=== PATIENT | female | born 1945 | race Caucasian/White ===

== ENCOUNTER 2017-11-05 15:31 | Emergency (ER) | payer MEDICARE, OTHER ==
[~2017-11-05] VITALS: Ht 165.1 cm; Wt 79.8 kg
--- OUTSIDE RECORDS SUMMARY | ~2017-11-05 | XMS | Clinical Summary ---
Demographics + + + | Address | [address] | | | [place] [address] | + + + | Home Phone | | + + + | Preferred Language | Unknown | + + + | Marital Status | | + + + | Confucianism Affiliation | Unknown | + + + | Race | Unknown | + + + | Ethnic Group | Unknown | + + + Author + + + | Author | [facility] | | | and [place] | + + + | Organization | [facility] | | | and [place] | + + + | Address | Unknown | + + + | Phone | Unavailable | + + + Support + + +---------+ + | Name | Relationship | Address | Phone | + + +---------+ + | Jeanine Arita | ECON | Unknown | | + + +---------+ + | Vikas Thomas | ECON | Unknown | | + + +---------+ + Care Team Providers + +------+ + | Care Glass Inspector Name | Role | Phone | + +------+ + | Aaron Nur DO | PP | Unavailable | + +------+ + Allergies + + + + + + | Active Allergy | Reactions | Severity | Noted | Comments | | | | | Date | | + + + + + + | Hydrocodone | | | 01/22/20 | | | | | | 15 | | + + + + + + | Ibuprofen | Nausea And Vomiting | | 08/12/19 | | | | | | 15 | | + + + + + + | Meperidine | Itching, Rash | Low | | | + + + + + + | Sumatriptan | Shortness Of Breath, | High | 08/12/19 | REACTION: Chest | | | Other (See | | 15 | pain, Shortness of | | | Comments) | | | Breath | + + + + + + Current Medications + + +-------+---------+------+------+-------+ | Prescription | Sig. | Disp. | Refills | Star | End | Statu | | | | | | t | Date | s | | | | | | Date | | | + + +-------+---------+------+------+-------+ | aspirin 81 mg EC | Take 81 mg by mouth | | | | | Activ | | tablet | Daily. | | | | | e | + + +-------+---------+------+------+-------+ | acetaminophen | Take 1,000 mg by | | | | | Activ | | (TYLENOL) 500 mg | mouth every 6 hours | | | | | e | | tablet | as needed for Pain. | | | | | | + + +-------+---------+------+------+-------+ | fluoxetine | Take 20 mg by mouth | | | 03/22 | | Activ | | (PROZAC) 20 MG | Daily. | | | 11/08 | | e | | tablet | | | | 12 | | | + + +-------+---------+------+------+-------+ | simvastatin | Take 40 mg by mouth | | | 10/0 | | Activ | | (ZOCOR) 40 mg tablet | nightly. | | | 5/20 | | e | | | | | | 12 | | | + + +-------+---------+------+------+-------+ | lidocaine | Apply topically as | | | | | Activ | | (XYLOCAINE) 2% jelly | needed. | | | | | e | + + +-------+---------+------+------+-------+ | levothyroxine | Take 75 mcg by mouth | | | | | Activ | | (SYNTHROID, | every morning | | | | | e | | LEVOTHROID) 75 MCG | (before breakfast). | | | | | | | tablet | | | | | | | + + +-------+---------+------+------+-------+ | cholecalciferol | Take 2,000 Units by | | | | | Activ | | (VITAMIN D-3) 2000 | mouth Daily. | | | | | e | | UNITS TABS | | | | | | | + + +-------+---------+------+------+-------+ | [place]-3 Fatty | Take 840 mg by mouth | | | | | Activ | | Acids (OMEGA-3 EPA | Daily. | | | | | e | | FISH OIL PO) | | | | | | | + + +-------+---------+------+------+-------+ | triamcinolone | Apply topically 2 | | | | | Activ | | (KENALOG) 0.1% cream | times daily. | | | | | e | + + +-------+---------+------+------+-------+ | Misc Natural | Apply to eye. | | | | | Activ | | Product (SIMILASAN | | | | | | e | | EYE DROPS #1 OP) | | | | | | | + + +-------+---------+------+------+-------+ | | Take by mouth. 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 | | + + + + + | Overview: ICD-10 Record update | + + Immunizations + + + + | Name | Dates Previously Given | Next Due | + + + + | INFLUENZA PF 18 Y OR | 03/22/2014 | | | >,TRIVALENT | | | | RECOMBINANT | | | + + + + | PNEUMOCOCCAL | 04/28/2012 | | | POLYSACCHARIDE | | | | 23-VALENT (PPSV23) | | | + + + + Family History + + + + + | Medical History | Relation | Name | Comments | + + + + + | Lung cancer | Brother | MARCELLO | | + + + + + | Cancer | Brother | PEÑA | SKIN/BONE/SPINE | + + + + + | Lung cancer | Brother | PEÑA | | + + + + + | Alcohol abuse | Brother | ZO | | + + + + + | Heart disease | Brother | | | + + + + + | Stroke | Daughter | JE[place]INE | | + + + + + | Alcohol abuse | Father | | | + + + + + | Cirrhosis | Father | | | + + + + + | Other (see comment) | Father | | PNEUMONIA | + + + + + | No Known Problems | Maternal | | | | | Grandfath | | | | | er | | | + + + + + | Heart failure | Maternal | | | | | Grandmoth | | | | | er | | | + + + + + | Alcohol abuse | Mother | | | + + + + + | Brain cancer | Mother | | | + + + + + | Cancer | Mother | | MELANOMA; METATASTIC | + + + + + | Liver cancer | Mother | | | + + + + + | Lung cancer | Mother | | | + + + + + | No Known Problems | Paternal | | | | | Grandfath | | | | | er | | | + + + + + | No Known Problems | Paternal | | | | | Grandmoth | | | | | er | | | + + + + + | Cancer | Sister | STIVEN | SKIN | + + + + + | Heart disease | Sister | STIVEN | | + + + + + | Other (see comment) | Sister | STIVEN | LUNG PROBLEMS | + + + + + | Ulcer Disease | Sister | STIVEN | | + + + + + | Cancer | Sister | KIARRA | SKIN | + + + + + | Drug abuse | Sister | KIARRA | | + + + + + | Schizophrenia | Sister | KIARRA | | + + + + + | No Known Problems | Son | VIKAS | | + + + + + + + + + + | Relation | Name | Status | Comments | + + + + + | Brother | MARCELLO | | LUNG CANCER | | | | (Age | | | | | 45) | | + + + + + | Brother | PEÑA | | CANCER | | | | (Age | | | | | 66) | | + + + + + | Brother | ZO | Alive | | + + + + + | Brother | | | | + + + + + | Daughter | [place]INE | Alive | | + + + + + | Father | | | | | | | (Age | | | | | 35) | | + + + + + | Maternal Grandfather | | | UNKNOWN COD | + + + + + | Maternal Grandmother | | | HEART FAILURE | | | | (Age | | | | | 69) | | + + + + + | Mother | | | CANCER | | | | (Age | | | | | 71) | | + + + + + | Paternal Grandfather | | | UNKNOWN COD | + + + + + | Paternal Grandmother | | | UNKNOWN COD | + + + + + | Sister | MIK | Alive | | + + + + + | Sister | STIVEN | | HEART PROBLEMS | | | | (Age | | | | | 64) | | + + + + + | Sister | KIARRA | | | | | | (Age | | | | | 63) | | + + + + + | Sister | RAFAEL | Alive | | + + + + + | Mumtaz | VIKAS | Alive | | + + + + + Social History + +-------+ +--------+------+ | Tobacco Use | Types | Packs/Day | Years | Date | | | | | Used | | + +-------+ +--------+------+ | Never Smoker | | | | | + +-------+ +--------+------+ + +---+---+---+ | Smokeless Tobacco: | | | | | Never Used | | | | + +---+---+---+ + + +---------+ + | Alcohol Use | Drinks/We | oz/Week | Comments | | | ek | | | + + +---------+ + | No | 0 | 0.0 | | | | Standard | | | | | drinks or | | | | | | | | | | equivalen | | | | | t | | | + + +---------+ + + + + | Sex Assigned at | Date Recorded | | | | + + + | Not on file | | + + + Last Filed Vital Signs + + + + | Vital Sign | Reading | Time Taken | + + + + | Blood Pressure | 162/68 | 04/18/20171247 PDT | + + + + | Pulse | 67 | 04/18/20171247 PDT | + + + + | Temperature | - | - | + + + + | Respiratory Rate | 14 | 04/18/20171247 PDT | + + + + | Oxygen Saturation | 98% | 04/18/20171247 PDT | + + + + | Inhaled Oxygen | - | - | | Concentration | | | + + + + | Weight | 85.7 kg (189 lb) | 04/18/20171247 PDT | + + + + | Height | 165.1 cm (5' 5") | 02/29/2016 1014 PDT | + + + + | Body Mass Index | 31.45 | 04/18/20171247 PDT | + + + + Plan of Treatment +--------+---------+ + + + | Date | Type | Specialty | Care Team | Description | +--------+---------+ + + + | 11/28/ | Office | | | | | 2018 | Visit | | | | +--------+---------+ + + + + + + + + | Health Maintenance | Due Date | Last Done | Comments | + + + + + | Hepatitis C | | | | | Screening | 5 | | | + + + + + | Vaccine: | | | | | Dtap/Tdap/Td (1 - | 4 | | | | Tdap) | | | | + + + + + | BREAST CANCER | | | | | SCREENING (MAMM Q2 | 5 | | | | YEARS 50-74) | | | | + + + + + | COLON CANCER | | | | | SCREENING | 5 | | | | (COLONOSCOPY EVERY | | | | | 10 YEARS 50-75) | | | | + + + + + | Vaccine: | | 04/28/2012 | | | Pneumococcal 65+ | 3 | | | | Low/Medium Risk (2 | | | | | of 2 - PCV13) | | | | + + + + + | Vaccine: Influenza | | 03/22/2014 | | | (Season Ended) | 8 | | | + + + + + Results Not on filefrom Last 3 Months Insurance + +--------+ +--------+ +---------+ | Payer | Benefi | Subscriber | Type | Phone | Address | | | t Plan | ID | | | | | | / | | | | | | | Group | | | | | + +--------+ +--------+ +---------+ | MEDICARE | MEDICA | xxxxxxxxxx | Medica | [phone] | | | RE | | re | [phone] | | | | PART A | | | | | | | AND B | | | | | + +--------+ +--------+ +---------+ | MEDICARE SUPPLEMENT | MEDICA | xxxxxxxxxx | Indemn | [phone] | | OTHER | RE | | ity | [phone] | | | | SUPPLE | | | | | | | MENT | | | | | | | OTHER | | | | | + +--------+ +--------+ +---------+ + +--------+ +--------+ + + | Guarantor Name | Accoun | Relation to | Date | Phone | Billing Address | | | t Type | Patient | of | | | | | | | | | | + +--------+ +--------+ + + | ASHLIE THOMAS | Person | Self [birth year] Home: | [address] | | | al/Fam | | 1945 | [phone] | [place] [address] | | | tata | | | [phone] | | + +--------+ +--------+ + +
--- OUTSIDE RECORDS SUMMARY | ~2017-11-05 | XMS | Clinical Summary ---
Demographics + + + | Address | [address] | | | [place] [address] | + + + | Home Phone | | + + + | Preferred Language | Unknown | + + + | Marital Status | | + + + | Pentecostalism Affiliation | Unknown | + + + | Race | Unknown | + + + | Ethnic Group | Unknown | + + + Author + + + | Author | [facility] | | | and [place] | + + + | Organization | [facility] | | | and [place] | [...] Team Providers + +------+ + | Care Outsole Skiver Name | Role | Phone | + [...] | | | + + +-------+---------+------+------+-------+ | [place]-3 Fatty | Take 840 mg by mouth [...] Self | [birth year] | Home: | [address] | | | al/Fam | | 1945 | [phone] | [place] [address] | | | tata | | | [phone] | | + +--------+ +--------+ + +
--- OUTSIDE RECORDS SUMMARY | ~2017-11-05 | XMS | Clinical Summary ---
Demographics + + + | Address | [address] | | | [place] [address] | + + + | Home Phone | | + + + | Preferred Language | Unknown | + + + | Marital Status | | + + + | Voodoo Affiliation | Unknown | + + + | Race | Unknown | + + + | Ethnic Group | Unknown | + + + Author + + + | Author | [facility] | + + + | Organization | [facility] | + + + | Address | Unknown | + + + | Phone | Unavailable | + + + Support + + +---------+ + | Name | Relationship | Address | Phone | + + +---------+ + | Eliazar Thomas | ECON | Unknown | | + + +---------+ + | Marge Arita | ECON | Unknown | | + + +---------+ + | Margarita Thomas | ECON | Unknown | | + + +---------+ + | Cecy Cardona | ECON | Unknown | | + + +---------+ + Care Team Providers + +------+ + | Care Rn Or Lpn Name | Role | Phone | + +------+ + | De Nur DO | PP | | + +------+ + Allergies + + + + + + | Active Allergy | Reactions | Severity | Noted | Comments | | | | | Date | | + + + + + + | Meperidine | Rash | Medium | 07/31/19 | | | | | | 17 | | + + + + + + | Ibuprofen | Nausea and Vomiting | Low | 07/31/19 | | | | | | 17 | | + + + + + + | Sumatriptan | Shortness of Breath, | High | 07/31/19 | Chest pain and SOB | | | Other (See | | 17 | | | | Comments) | | | | + + + + + + Current Medications + + +-------+---------+------+------+-------+ | Prescription | Sig. | Disp. | Refills | Star | End | Statu | | | | | | t | Date | s | | | | | | Date | | | + + +-------+---------+------+------+-------+ | levothyroxine | Take 75 mcg by mouth | | | | | Activ | | (SYNTHROID) 75 MCG | every morning | | | | | e | | tablet | before breakfast. | | | | | | + + +-------+---------+------+------+-------+ | aspirin 81 MG | Take 81 mg by mouth | | | | | Activ | | tablet | daily. | | | | | e | + + +-------+---------+------+------+-------+ | Cholecalciferol | Take by mouth. | | | | | Activ | | 2000 UNITS CAPS | | | | | | e | + + +-------+---------+------+------+-------+ | acetaminophen | Take 500 mg by mouth | | | | | Activ | | (TYLENOL) 500 MG | every 6 (six) hours | | | | | e | | tablet | as needed for Pain. | | | | | | + + +-------+---------+------+------+-------+ | simvastatin | Take 40 mg by mouth | | | | | Activ | | (ZOCOR) 40 MG tablet | nightly. | | | | | e | + + +-------+---------+------+------+-------+ | omega-3 acid ethyl | Take 1 g by mouth 2 | | | | | Activ | | esters (LOVAZA) 1 G | (two) times daily. | | | | | e | | capsule | | | | | | | + + +-------+---------+------+------+-------+ | FLUoxetine | Take 40 mg by mouth | | | | | Activ | | (PROZAC) 40 MG | daily. | | | | | e | | capsule | | | | | | | + + +-------+---------+------+------+-------+ | | Place rectally. | | | | | Activ | | Lidocaine-Hydrocorti | | | | | | e | | sone Audie 2-2 % KIT | | | | | | | + + +-------+---------+------+------+-------+ Active Problems + + + | Problem | Noted Date | + + + | Arrhythmia | 07/31/2016 | + + + | Hypothyroidism (acquired) | | + + + | Sleep apnea | | + + + + + | Overview: on CPAP, pressure increased in Sept. 2015 | + + Family History + + +--------+ + | Medical History | Relation | Name | Comments | + + +--------+ + | Bone cancer | Brother | love | | + + +--------+ + | Cancer | Brother | love | | + + +--------+ + | Lung cancer | Brother | love | | + + +--------+ + | Alcohol abuse | Brother | rc | | + + +--------+ + | Coronary art dis | Brother | rc | | + + +--------+ + | Drug abuse | Brother | rc | | + + +--------+ + | Heart attack | Smitaer | rc | | + + +--------+ + | Bone cancer | Brother | palencia | | + + +--------+ + | Cancer | Brother | palencia | | + + +--------+ + | Lung cancer | Brother | palencia | | + + +--------+ + | Alcohol abuse | Father | | | + + +--------+ + | Liver disease | Father | | | + + +--------+ + | Cancer | Mother | | | + + +--------+ + | Melanoma | Mother | | | + + +--------+ + | Cancer | Sister | alphonse | skin | + + +--------+ + | Drug abuse | Sister | alphonse | | + + +--------+ + | Schizophrenia | Sister | alphonse | | + + +--------+ + | COPD | Sister | kayla | | + + +--------+ + | Cancer | Sister | kayla | skin | + + +--------+ + + + + + + | Relation | Name | Status | Comments | + + + + + | Brother | love | | | | | | (Age | | | | | 45) | | + + + + + | Brother | rc | Alive | | + + + + + | Brother | palencia | | | | | | (Age | | | | | 66) | | + + + + + | Daughter | | Alive | | + + + + + | Father | | | 35 | + + + + + | Mother | | | | | | | (Age | | | | | 71) | | + + + + + | Sister | hitesh | Alive | | + + + + + | Sister | alphonse | Alive | | + + + + + | Sister | kayla | Alive | | + + + + + | Sister | ronel | Alive | | + + + + + | Son | | Alive | | + + + [...] + + + | Blood Pressure | 122/62 | 10/18/2016 9:31 AM PDT | + + + + | Pulse | 52 | 10/18/2016 9:31 AM PDT | + + + + | Temperature | - | - | + + + + | Respiratory Rate | 16 | 09/03/2016 9:35 AM PST | + + + + | Oxygen Saturation | 98% | 10/18/2016 9:31 AM PDT | + + + + | Inhaled Oxygen | - | - | | Concentration | | | + + + + | Weight | 78 kg (172 lb) | 10/18/2016 9:31 AM PDT | + + + + | Height | 165.1 cm (5' 5") | 10/18/2016 9:31 AM PDT | + + + + | Body Mass Index | 28.62 | 10/18/2016 9:31 AM PDT | + + + + Plan of Treatment +--------+---------+ + + + | Date | Type | Specialty | Care Team | Description | +--------+---------+ + + + | 11/14/ | Office | | Marina Bhatti | | | 2018 | Visit | | [address] | | | | | | [place] | | | | | | [facility] [address] | | | | | | [phone] | | | | | | | | +--------+---------+ + + + + + + + + | Health Maintenance | Due Date | Last Done | Comments | + + + + + | Vaccine: | | | | | Dtap/Tdap/Td (1 - | 4 | | | | Tdap) | | | | + + + + + | Breast Cancer | | | | | Screening | 5 | | | | (Mammogram) | | | | + + + + + | Colon Cancer | | | | | Screening | 5 | | | | (Colonoscopy) | | | | + + + + + | Vaccine: Zoster (#1) | | | | | | 5 | | | + + + + + | DEXA SCAN SCREENING | | | | | | 0 | | | + + + + + | Vaccine: | | 04/28/2012 | | | Pneumococcal 65+ | 3 | | | | Low/Medium Risk (2 | | | | | of 2 - PCV13) | | | | + + + + + | Vaccine: Influenza | | 03/22/2014, 03/22/2014 | | | (Season Ended) | 8 | | | + + + + + Results Not on filefrom Last 3 Months Insurance + +--------+ +------+-------+ + | Payer | Benefi | Subscriber | Type | Phone | Address | | | t Plan | ID | | | | | | / | | | | | | | Group | | | | | + +--------+ +------+-------+ + | MEDICARE | MEDICA | xxxxxxxxxx | | | [address] | | | RE | | | | [place] [phone] | | | IP-OP | | | | | + +--------+ +------+-------+ + + +--------+ +--------+ + + | Guarantor Name | Accoun | Relation to | Date | Phone | Billing Address | | | t Type | Patient | of | | | | | | | | | | + +--------+ +--------+ + + | ASHLIE THOMAS | Person | Self [birth year] | Home: | [address] | | | al/Fam | | 1945 | [phone] [place] [address] | | | tata | | | [phone] | | + +--------+ +--------+ + +
--- OUTSIDE RECORDS SUMMARY | ~2017-11-05 | XMS | Clinical Summary ---
Demographics + + + | Address | [address] | | | [place] [address] | + + + | Home Phone | | + + + | Preferred Language | Unknown | + + + | Marital Status | | + + + | Sabianism Affiliation | Unknown | + + + | Race | Unknown | + + + | Ethnic Group | Unknown | + + + Author + + + | Author | [facility] | + + + | Organization | [facility] | + + + | Address [...] Team Providers + +------+ + | Care Demolition Specialist Name | Role | Phone | + [...] [place] | | | | | | [facility] [address] | | | | | | [phone] | | | | | | | [...] | xxxxxxxxxx | | | [address] | | | RE | | | | [place] [phone] | | | IP-OP | | | [...] Self | [birth year] | Home: | [address] | | | al/Fam | | 1945 | [phone] | [place] [address] | | | tata | | | [phone] | | + +--------+ +--------+ + +
[~2017-11-05 15:31] MED LIST: ASPIR-LOW81 MG PO; CEPHALEXIN500 MG PO; CYCLOBENZAPRINE10 MG PO; CYCLOBENZAPRINE5 MG PO; FISH OIL 1,0001 EAC2 NG; FLEXERIL10 MG PO; FLUOXETINE HCL20 MG PO; LEVOTHYROXINE25 MCG PO; LEVOTHYROXINE75 MCG PO; NORCO 10-325 T1 EACH PO; NORCO 5-325 TA1 EACH PO; PERCOCET 5-3251 EACH PO; PROZAC20 MG PO; SIMVASTATIN40 MG PO; TYLENOL EXTRA500 MG PO; VITAMIN D32000 UNI1 PO; VITAMIN D5000 UNIT PO
--- NOTE | 2017-11-05 17:15 | EKG ---
[facility] [address] [facility] [place], [place] [address] Signed Sinus bradycardia Otherwise normal ECG No previous ECGs available Confirmed by ROBIN MCNEIL MD ([id number]) on 11/05/2017 5:15:05 PM Electronically Signed By: ROBIN MCNEIL MD 11/05/17 1715 PATIENT NAME: AMADA SPAIN Electrocardiogram DATE OF : 45 PHYSICIAN: ROBIN MCNEIL MD REPORT #: [id number] REPORT IS CONFIDENTIAL AND NOT TO BE RELEASED WITHOUT AUTHORIZATION
[2017-11-05] MEDS ORDERED: ONDANSETRON ODT8 MG PO (18:24)
== END 2017-11-05 18:38 | disposition home or self-care (01) ==
LOC: ED 15:31
DX: R53.1 Weakness (principal); R42 Dizziness and giddiness; R11.0 Nausea; E03.9 Hypothyroidism, unspecified; Z88.8 Allergy status to other drugs, medicaments and biological substances; Z79.82 Long term (current) use of aspirin; Z79.899 Other long term (current) drug therapy
CPT/HCPCS: 70450; 80053; 81001; 84484; 85025; 93005; 93010; 96374; 99284; J2405

== ENCOUNTER 2017-12-23 05:35 | Day surgery (SDC) | payer MEDICARE, OTHER ==
[~2017-12-23] VITALS: Ht 165.1 cm; Wt 85.3 kg
[~2017-12-23 05:35] MED LIST changes: +ONDANSETRON ODT8 MG PO
--- NOTE | 2017-12-23 08:17 | NUR ---
12/23/17 0817 Kylah Powell TO PACU, RESP EVEN UNLABORED. EASILY AWAKENS. DENIES PAIN OR C/O AT THIS TIME.
[2017-12-23] MEDS ORDERED: PYRIDIUM200 MG PO (08:30)
[2017-12-23] MEDS ORDERED: CIPRO500 MG PO (08:31)
--- NOTE | 2017-12-23 10:33 | OR ---
[facility] [address] [place], [place] [address] Signed DATE OF OPERATION: 12/23/2017 SURGEON: Liliana Remy MD PREOPERATIVE DIAGNOSES: 1. Microhematuria. 2. Overactive bladder. 3. Urethral stenosis. POSTOPERATIVE DIAGNOSES: 1. Microhematuria. 2. Overactive bladder. 3. Urethral stenosis. 4. Cystitis. NAMES OF PROCEDURES: 1. Urethral dilation, from 12-Samoan to 24-Samoan. 2. Diagnostic cystoscopy with Botox bladder injection, 100 units. ANESTHESIA: MAC with 20 mL of 2% lidocaine gel. COMPLICATIONS: None. SPECIMENS: None. DRAINS: None. INDICATIONS FOR PROCEDURE: Ms. Thomas is a very pleasant 72-year-old female, who presented to my clinic earlier this year in August to initially undergo evaluation for microhematuria and urgency/frequency symptoms. She had been tried on various medications for urgency and frequency, but these medications did not provide any relief for her symptoms. Her postvoid residual was consistently 0 mL. She had no history of recurrent urinary tract infections, however, she does have a history of a pelvic floor repair in the past. She underwent an attempted diagnostic cystoscopy in November 2017. However, due to the presence of urethral stenosis, I was unable to perform the cystoscopy. At the time, I attempted Electronically Signed By: LILIANA REMY MD 12/23/17 1033 PATIENT NAME: AMADA THOMAS OPERATIVE REPORT DATE OF : 45 REPORT #: [id number] PHYSICIAN: LILIANA REMY MD PCP: KELSIE FRIED MD REPORT IS CONFIDENTIAL AND NOT TO BE RELEASED WITHOUT AUTHORIZATION [facility] [address] [place], [place] [address] Signed urethral dilation with a 12-Samoan sound, however, I aborted the procedure due to patient discomfort. In the interim, she has undergone a contrasted CT abdomen and pelvis for thorough evaluation of her upper tracts given her history of microhematuria. The CAT scan was performed in early December of this year and was found to be negative for any abnormalities. She presents today to undergo a urethral dilation, which will allow for thorough diagnostic cystoscopy as well as Botox bladder injection of 100 units. She has been made aware of the 6% risk of urinary retention and has agreed to proceed. OPERATIVE FINDINGS: Physical examination reveals introital stenosis. The patient's urethra was dilated from 12-Samoan to 24-Samoan without difficulty. Diagnostic cystoscopy reveals no evidence of any suspicious masses, lesions, or stones. Bilateral ureteral orifices are in their normal anatomic location. Noted throughout is diffuse superficial mucosal vessels that are indicative of a diffuse inflammatory response to the bladder. Etiology is unknown. There is also diffuse grade 1 bladder wall trabeculation noted. A total of 100 units of botulinum toxin was injected throughout the patient's bladder wall using a 3 mm needle. I avoided the trigone, dome, and ureteral orifices. The procedure was performed without complication. DESCRIPTION OF PROCEDURE: After informed consent was obtained, the patient was taken back to the operating room. She was transferred from the [facility] to the operating room table, where MAC anesthesia was induced. She was placed in the dorsal lithotomy position and her genitalia were prepped and draped in standard sterile fashion. A straight sound was then used to dilate the patient's urethra from 12-Samoan to 24-Samoan. This was performed without difficulty. Using a 30-degree lens on a 22.5-Samoan introducer, I inserted the rigid cystoscope through the urethra into her bladder under direct visualization. Panendoscopic views of the bladder were then obtained including the lateral puga, floor, dome, and trigone areas. Please see above findings. Once I was satisfied that I had completed the cystoscopy, I initiated injection of the botulinum toxin. I advanced the long ShopItToMe needle. I injected a total of 20 or so 0.5 mL injections of botulinum toxin into the patient's detrusor muscle throughout, avoiding the dome, trigone, and areas of the ureteral orifice. Once the injection was complete, the patient's bladder was then emptied and the cystoscope was removed. The procedure was then tolerated. The patient tolerated the procedure well without any complication. She will now be transferred to the postanesthesia care unit in stable condition. DISPOSITION: I discussed the details of the procedure today with her ioieovm-tv-sta, Homero. All of Electronically Signed By: LILIANA REMY MD 12/23/17 1033 PATIENT NAME: AMADA THOMAS OPERATIVE REPORT DATE OF : 45 REPORT #: [id number] PHYSICIAN: LILIANA REMY MD PCP: KELSIE FRIED MD REPORT IS CONFIDENTIAL AND NOT TO BE RELEASED WITHOUT AUTHORIZATION [facility] [address] [place] [id number] Signed his questions were answered to his satisfaction. She will be discharged to home later this morning in the care of her family. She will be sent home with Pyridium 200 mg p.o. t.i.d. p.r.n. dysuria, dispense #15, as well as Cipro 500 mg p.o. b.i.d. for a total of 5 days. She will be scheduled to return to clinic in approximately one month for postoperative evaluation. MD JOHANA Du/MARIA R /[id number] Copies: ~ Electronically Signed By: LILIANA REMY MD 12/23/17 1033 PATIENT NAME: AMADA THOMAS OPERATIVE REPORT DATE OF : 45 REPORT #: [id number] PHYSICIAN: LILIANA REMY MD PCP: KELSIE FRIED MD REPORT IS CONFIDENTIAL AND NOT TO BE RELEASED WITHOUT AUTHORIZATION
== END 2017-12-23 09:00 | disposition home or self-care (01) ==
LOC: DS 05:35 → OPS 05:35 → DS 08:15 → OPS 09:00
PROVIDERS: Urology
PROC: 0T7D8ZZ Dilation of Urethra, Via Natural or Artificial Opening Endoscopic (ICD-10-PCS; 2017-12-23)
PROC: 3E0K8GC Introduction of Other Therapeutic Substance into Genitourinary Tract, Via Natural or Artificial Opening Endoscopic (ICD-10-PCS; principal; 2017-12-23 06:45)
DX: N35.9 Urethral stricture, unspecified (principal); N32.81 Overactive bladder; N39.46 Mixed incontinence; N30.91 Cystitis, unspecified with hematuria; I10 Essential (primary) hypertension; E03.9 Hypothyroidism, unspecified; Z98.890 Other specified postprocedural states; Z88.5 Allergy status to narcotic agent; Z88.8 Allergy status to other drugs, medicaments and biological substances; Z79.82 Long term (current) use of aspirin; Z79.899 Other long term (current) drug therapy
CPT/HCPCS: 00910; J0585; J0696; J2250; J2704; J3010; J7120

== ENCOUNTER 2020-07-15 20:18 | Emergency (ER) | payer MEDICARE, OTHER ==
[~2020-07-15] VITALS: Ht 165.1 cm; Wt 92.5 kg
[~2020-07-15 20:18] MED LIST changes: +AMLODIPINE BESYL5 MG PO; +ATORVASTATIN CA80 MG PO; +CEFUROXIME250 MG PO; +CIPRO500 MG PO; +DULOXETINE HCL60 MG PO; +LEVOTHYROXINE88 MCG PO; +LIPITOR40 MG PO; +METOPROLOL SUCC25 MG PO; +PREDNISONE5 MG PO; +PRO CAL PO; +PYRIDIUM200 MG PO; +WARFARIN SODIUM3 MG PO; +WARFARIN SODIUM6 MG PO
[2020-07-15] MEDS ORDERED: ALENDRONATE SOD70 MG PO (20:50)
[2020-07-15] MEDS ORDERED: NORCO 5-325 TA1 EACH PO (21:52)
== END 2020-07-15 22:11 | disposition home or self-care (01) ==
LOC: ED 20:18
DX: S20.212A Contusion of left front wall of thorax, initial encounter (principal); W01.198A Fall on same level from slipping, tripping and stumbling with subsequent striking against other object, initial encounter; G47.30 Sleep apnea, unspecified; F32.9 Major depressive disorder, single episode, unspecified; E03.9 Hypothyroidism, unspecified; Z88.8 Allergy status to other drugs, medicaments and biological substances; Z88.2 Allergy status to sulfonamides; Z88.1 Allergy status to other antibiotic agents; Z87.891 Personal history of nicotine dependence; Z79.899 Other long term (current) drug therapy; Z79.01 Long term (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 of anticoagulants
CPT/HCPCS: 71101; 99283-25

== ENCOUNTER 2020-12-03 21:21 | Emergency (ER) | payer MEDICARE ==
[~2020-12-03] VITALS: Ht 165.1 cm; Wt 92.5 kg
[~2020-12-03 21:21] MED LIST changes: +ALENDRONATE SOD70 MG PO; +IPRATROPIUM BRO30 ML NAS
[2020-12-03] MEDS ORDERED: HYDROCODON-ACE1 EA10 PO (23:28)
[2021-01-03] MEDS ORDERED: ALENDRONATE SOD70 MG PO (15:24)
== END 2020-12-03 23:58 | disposition home or self-care (01) ==
LOC: ED 21:21
DX: S39.011A Strain of muscle, fascia and tendon of abdomen, initial encounter (principal); X58.XXXA Exposure to other specified factors, initial encounter; G47.30 Sleep apnea, unspecified; E03.9 Hypothyroidism, unspecified; Z88.8 Allergy status to other drugs, medicaments and biological substances; Z88.2 Allergy status to sulfonamides; Z88.1 Allergy status to other antibiotic agents; Z79.899 Other long term (current) drug therapy; Z79.52 Long term (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 of systemic steroids; Z79.01 Long term (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 of anticoagulants
CPT/HCPCS: 99283

== ENCOUNTER 2021-03-02 12:07 | Emergency (ER) | payer MEDICARE ==
[~2021-03-02] VITALS: Ht 165.1 cm; Wt 92.5 kg
[~2021-03-02 12:07] MED LIST changes: +HYDROCODON-ACE1 EA10 PO
[2021-03-02] MEDS ORDERED: ZITHROMAX250 MG PO (13:41)
[2021-03-21] MEDS ORDERED: OMEPRAZOLE20 MG PO (14:36)
== END 2021-03-02 14:03 | disposition home or self-care (01) ==
LOC: ED 12:07
DX: J18.9 Pneumonia, unspecified organism (principal); G47.30 Sleep apnea, unspecified; I48.91 Unspecified atrial fibrillation; I10 Essential (primary) hypertension; E03.9 Hypothyroidism, unspecified; Z88.8 Allergy status to other drugs, medicaments and biological substances; Z88.1 Allergy status to other antibiotic agents; Z88.2 Allergy status to sulfonamides; Z79.899 Other long term (current) drug therapy
CPT/HCPCS: 71045; 99283-25

== ENCOUNTER 2021-03-03 15:45 | Emergency (ER) | payer MEDICARE ==
[~2021-03-03] VITALS: Ht 165.1 cm; Wt 92.5 kg
[~2021-03-03 15:45] MED LIST changes: +ZITHROMAX250 MG PO
--- OUTSIDE RECORDS SUMMARY | 2021-03-03 15:52 | XMS ---
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 Brianna has no Care Guidelines for this patient. Simone VISIT COUNT (12 MO.) [facility] NOTE: Visits indicate total known visits. 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 - Allergy status to other drugs, medicaments and biological substances - Other terminal carman (current) drug therapy - Exposure to other specified factors, initial encounter - Sleep apnea, unspecified - Strain of muscle, fascia and tendon of abdomen, initial encounter - Allergy status to sulfonamides - Hypothyroidism, unspecified - Allergy status to other antibiotic agents - buttermilk drier operator (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 of systemic steroids 07/15/2020 20:19 [facility] [place] TYPE: Emergency COMPLAINT: - LT SIDED PAIN DIAGNOSES: - Allergy status to other antibiotic agents - Personal history of nicotine dependence - Allergy status to other drugs, medicaments and biological substances - Major depressive disorder, single episode, unspecified - Other jail (current) drug therapy - Allergy status to sulfonamides - Allergy status to sulfonamides - Allergy status to other drugs, medicaments and biological substances - Contusion of left front wall of thorax, initial encounter - Allergy status to other antibiotic agents - Fall on same level from slipping, tripping and stumbling with subsequent striking against other object, initial encounter - Sleep apnea, unspecified - buttermilk drier operator (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 of anticoagulants - Hypothyroidism, unspecified INPATIENT VISIT TRACKING (12 MO.) No inpatient visits to display in this time frame [id number]
[2021-03-21] MEDS ORDERED: OMEPRAZOLE20 MG PO (14:36)
== END 2021-03-03 17:01 | disposition home or self-care (01) ==
LOC: ED 15:45
DX: H92.22 Otorrhagia, left ear (principal); G47.30 Sleep apnea, unspecified; E03.9 Hypothyroidism, unspecified; I10 Essential (primary) hypertension; I48.91 Unspecified atrial fibrillation; Z88.8 Allergy status to other drugs, medicaments and biological substances; Z88.2 Allergy status to sulfonamides; Z88.1 Allergy status to other antibiotic agents; Z79.899 Other long term (current) drug therapy; Z79.52 Long term (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 of systemic steroids; Z79.01 Long term (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 of anticoagulants
CPT/HCPCS: 99282

== ENCOUNTER 2021-09-22 15:56 | Emergency (ER) | payer MEDICARE ==
[~2021-09-22] VITALS: Ht 165.1 cm; Wt 99.3 kg
[~2021-09-22 15:56] MED LIST changes: +LOSARTAN POTASS50 MG PO; +OMEPRAZOLE20 MG PO; +OMEPRAZOLE40 MG PO; +TERBINAFINE HC250 MG PO
--- OUTSIDE RECORDS SUMMARY | 2021-09-22 15:58 | XMS ---
PreManage Notification: AMADA SPAIN Security Generation Engineer Events No recent Security Events currently on file CRITERIA MET - ED - Positive COVID-19 Lab Result - [facility] Internal Medicine 03/06/2021-Current PHONE: [phone] [facility] Current PHONE: [phone] Brianna has no Care Guidelines for this patient. Care History Medical/Surgical 03/06/2021 [facility] - Patient is currently established with [facility]. If patient is seen in the ED during business hours. Please contact CHWs at [facility]. Care Recommendation: If this patient has had 5 or more Emergency Department visits in the last 12 months.\T\nbsp; Patient will require education on the scope and purpose of the ED as an acute care provider not a Primary Care Provider and should not be utilized for chronic conditions.\T\nbsp; These are guidelines and the provider should exercise clinical judgment when providing care. E.D. VISIT COUNT (12 MO.) [address] [facility] TOTAL 4 NOTE: Visits indicate total known visits. ED/UCC VISIT TRACKING (12 MO.) 09/22/2021 15:56 [facility] [place] TYPE: Emergency COMPLAINT: - FALL,RT SIDED PAIN 03/03/2021 15:45 [facility] [place] TYPE: Emergency COMPLAINT: - BLEEDING FROM EAR/PAIN DIAGNOSES: - Allergy status to sulfonamides - detention (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 of anticoagulants - Other alf (current) drug therapy - Hypothyroidism, unspecified - Otorrhagia, left ear - detention (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 of systemic steroids - Allergy status to other antibiotic agents - Allergy status to other drugs, medicaments and biological substances - Unspecified atrial fibrillation - Sleep apnea, unspecified - Essential (primary) hypertension 03/02/2021 12:08 [facility] [place] TYPE: Emergency COMPLAINT: - FLU SYMPTOMS, SOB, COUGH DIAGNOSES: - Hypothyroidism, unspecified - Allergy status to other antibiotic agents - Unspecified atrial fibrillation - Allergy status to sulfonamides - Sleep apnea, unspecified - Essential (primary) hypertension - Other alf (current) drug therapy - Cough - Pneumonia, unspecified organism - Allergy status to other drugs, medicaments and biological substances 12/03/2020 21:23 [facility] [place] TYPE: Emergency COMPLAINT: - LEFT LOWER BACK PAIN DIAGNOSES: - termite control representative (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 of anticoagulants - Allergy status to other drugs, medicaments and biological substances - Other ferry terminal agent (current) drug therapy - Exposure to other specified factors, initial encounter - Sleep apnea, unspecified - Strain of muscle, fascia and tendon of abdomen, initial encounter - Allergy status to sulfonamides - Hypothyroidism, unspecified - Allergy status to other antibiotic agents - termite control representative (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 of systemic steroids INPATIENT VISIT TRACKING (12 MO.) No inpatient visits to display in this time frame [id number]
[2021-09-22] MEDS ORDERED: PREDNISONE5 MG PO (16:37)
[2021-09-22] MEDS ORDERED: ULTRAM50 MG PO (20:53)
== END 2021-09-22 21:36 | disposition home or self-care (01) ==
LOC: ED 15:56
DX: S20.211A Contusion of right front wall of thorax, initial encounter (principal); G47.30 Sleep apnea, unspecified; I10 Essential (primary) hypertension; I48.91 Unspecified atrial fibrillation; E03.9 Hypothyroidism, unspecified; Z88.8 Allergy status to other drugs, medicaments and biological substances; Z88.6 Allergy status to analgesic agent; Z79.52 Long term (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 of systemic steroids; Z79.899 Other long term (current) drug therapy; Z79.01 Long term (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 of anticoagulants; W18.30XA Fall on same level, unspecified, initial encounter
CPT/HCPCS: 36415; 70450; 71101; 71250; 72125; 73502; 73560; 73610; 80048; 82553; 85025; 85610; 96374; 99284-25; J2270

== ENCOUNTER 2021-10-26 19:00 | Emergency (ER) | payer MEDICARE ==
[~2021-10-26] VITALS: Ht 165.1 cm; Wt 99.3 kg
[~2021-10-26 19:00] MED LIST changes: +ULTRAM50 MG PO
--- OUTSIDE RECORDS SUMMARY | 2021-10-26 19:06 | XMS ---
PreManage Notification: AMADA SPAIN Security Recovery Specialist Events No recent Security Events currently on file CRITERIA MET - ED - Positive COVID-19 Lab Result - [facility] Internal Medicine 03/06/2021-Current PHONE: [phone] [facility] Current PHONE: Unknown Brianna has no Care Guidelines for this patient. Care History Medical/Surgical 03/06/2021 [facility] - Patient is currently established with [facility]. If patient is seen in the ED during business hours. Please contact CHWs at [facility]. Care Recommendation: If this patient has had [...] providing care. E.D. VISIT COUNT (12 MO.) [address] [facility] TOTAL 5 NOTE: Visits indicate total known visits. ED/UCC VISIT TRACKING (12 MO.) 10/26/2021 19:00 [facility] [place] TYPE: Emergency COMPLAINT: - LT FINGER LACERATION 09/22/2021 15:56 [facility] [place] TYPE: Emergency COMPLAINT: - FALL,RT SIDED PAIN DIAGNOSES: - Hypothyroidism, unspecified - Shortness of breath - Sleep apnea, unspecified - Essential (primary) hypertension - Fall on same level, unspecified, initial encounter - Contusion of right front wall of thorax, initial encounter - Allergy status to other drugs, medicaments and biological substances - [facility] (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 of anticoagulants - [facility] (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 of systemic steroids - Other supervisor intermediates (current) drug therapy - Allergy status to analgesic agent - Unspecified atrial fibrillation 03/03/2021 15:45 [facility] [place] TYPE: Emergency COMPLAINT: - BLEEDING FROM EAR/PAIN DIAGNOSES: - Allergy status to sulfonamides - [facility] (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 of anticoagulants - Other supervisor intermediates (current) drug therapy - Hypothyroidism, unspecified - Otorrhagia, left ear - [facility] (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 of systemic steroids - Allergy status to other antibiotic agents - Allergy status to other drugs, medicaments and biological substances - Unspecified atrial fibrillation - Sleep apnea, unspecified - Essential (primary) hypertension 03/02/2021 12:08 [facility] [place] TYPE: Emergency COMPLAINT: - FLU SYMPTOMS, SOB, COUGH DIAGNOSES: - Hypothyroidism, unspecified - Allergy status to other antibiotic agents - Unspecified atrial fibrillation - Allergy status to sulfonamides - Sleep apnea, unspecified - Essential (primary) hypertension - Other supervisor intermediates (current) drug therapy - Cough - Pneumonia, unspecified organism - Allergy status to other drugs, medicaments and biological substances 12/03/2020 21:[address] [facility] [place] TYPE: Emergency COMPLAINT: - LEFT LOWER BACK PAIN DIAGNOSES: - [facility] (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 of anticoagulants - Allergy status to other drugs, medicaments and biological substances - Other supervisor intermediates (current) drug therapy - Exposure to other specified factors, initial encounter - Sleep apnea, unspecified - Strain of muscle, fascia and tendon of abdomen, initial encounter - Allergy status to sulfonamides - Hypothyroidism, unspecified - Allergy status to other antibiotic agents - adjunct faculty for medical terminology (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 of systemic steroids INPATIENT VISIT TRACKING (12 MO.) No inpatient visits to display in this time frame [email or web address]
[2021-10-27] MEDS ORDERED: MUPIROCIN22 GM TOP ×2 (06:37)
== END 2021-10-26 22:42 | disposition home or self-care (01) ==
LOC: ED 19:00
DX: S61.211A Laceration without foreign body of left index finger without damage to nail, initial encounter (principal); G47.30 Sleep apnea, unspecified; E03.9 Hypothyroidism, unspecified; I48.91 Unspecified atrial fibrillation; I10 Essential (primary) hypertension; Z88.6 Allergy status to analgesic agent; Z88.8 Allergy status to other drugs, medicaments and biological substances; Z79.899 Other long term (current) drug therapy; Z79.01 Long term (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 of anticoagulants; Z79.52 Long term (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 of systemic steroids; W26.0XXA Contact with knife, initial encounter
CPT/HCPCS: 12001; 99282-25

== ENCOUNTER 2021-11-20 07:34 | Emergency (ER) | payer OTHER, MEDICARE ==
[~2021-11-20] VITALS: Ht 165.1 cm; Wt 99.3 kg
[~2021-11-20 07:34] MED LIST changes: +MUPIROCIN22 GM TOP
--- OUTSIDE RECORDS SUMMARY | 2021-11-20 07:36 | XMS ---
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 - 2 Visits in 30 Days CARE PROVIDERS [facility] Internal Medicine 03/06/2021-Current PHONE: [phone] [facility] Current PHONE: Unknown Brianna has no Care Guidelines for this patient. Care History Medical/Surgical 03/06/2021 [facility] - Patient is currently established with [facility]. If patient is seen in the ED during business hours. Please contact CHWs at [facility]. Care Recommendation: If this patient has [...] providing care. E.D. VISIT COUNT (12 MO.) [address] [facility] TOTAL 7 NOTE: Visits indicate total known visits. ED/UCC VISIT TRACKING (12 MO.) 11/20/2021 07:35 [facility] [place] TYPE: Emergency COMPLAINT: - FALL 11/06/2021 14:26 [facility] [place] TYPE: Emergency COMPLAINT: - SUTURE REMOVAL 10/26/2021 19:00 [facility] [place] TYPE: Emergency COMPLAINT: - LT FINGER LACERATION DIAGNOSES: - Allergy status to analgesic agent - buttermaker helper (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 of anticoagulants - Contact with knife, initial encounter - Other rn long term care (current) drug therapy - Laceration without foreign body of left index finger without damage to nail, initial encounter - Sleep apnea, unspecified - Allergy status to other drugs, medicaments and biological substances - prison (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 of systemic steroids - Essential (primary) hypertension - Unspecified atrial fibrillation - Hypothyroidism, unspecified 09/22/2021 15:56 [facility] [place] TYPE: Emergency COMPLAINT: - FALL,RT SIDED PAIN DIAGNOSES: - Hypothyroidism, unspecified - Shortness of breath - Sleep apnea, unspecified - Essential (primary) hypertension - Fall on same level, unspecified, initial encounter - Contusion of right front wall of thorax, initial encounter - Allergy status to other drugs, medicaments and biological substances - prison (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 of anticoagulants - buttermaker helper (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 of systemic steroids - Other rn long term care (current) drug therapy - Allergy status to analgesic agent - Unspecified atrial fibrillation 03/03/2021 15:45 [facility] [place] TYPE: Emergency COMPLAINT: - BLEEDING FROM EAR/PAIN DIAGNOSES: - Allergy status to sulfonamides - prison (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 of anticoagulants - Other rn long term care (current) drug therapy - Hypothyroidism, unspecified - Otorrhagia, left ear - buttermaker helper (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 of systemic steroids - Allergy [...] unspecified - Essential (primary) hypertension - Other detention (current) drug therapy - Cough - Pneumonia, unspecified organism - Allergy status to other drugs, medicaments and biological substances 12/03/2020 21:23 [facility] [place] TYPE: Emergency COMPLAINT: - LEFT LOWER BACK PAIN DIAGNOSES: - prison (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 of anticoagulants - Allergy status to other drugs, medicaments and biological substances - Other detention (current) drug therapy - Exposure to other specified factors, initial encounter - Sleep apnea, unspecified - Strain of muscle, fascia and tendon of abdomen, initial encounter - Allergy status to sulfonamides - Hypothyroidism, unspecified - Allergy status to other antibiotic agents - prison (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 of systemic steroids INPATIENT VISIT TRACKING (12 MO.) No inpatient visits to display in this time frame [id number]
== END 2021-11-20 09:30 | disposition home or self-care (01) ==
LOC: ED 07:34
DX: S20.219A Contusion of unspecified front wall of thorax, initial encounter (principal); G47.30 Sleep apnea, unspecified; E03.9 Hypothyroidism, unspecified; I48.91 Unspecified atrial fibrillation; I10 Essential (primary) hypertension; Z88.8 Allergy status to other drugs, medicaments and biological substances; Z88.6 Allergy status to analgesic agent; Z79.899 Other long term (current) drug therapy; Z79.52 Long term (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 of systemic steroids; Z79.01 Long term (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 of anticoagulants; W01.198A Fall on same level from slipping, tripping and stumbling with subsequent striking against other object, initial encounter; Y99.0 Civilian activity done for income or pay
CPT/HCPCS: 36415; 71046; 85025; 85610; 99284-25; A9270

== ENCOUNTER 2021-11-23 19:41 | Emergency (ER) | payer MEDICARE ==
[~2021-11-23] VITALS: Ht 165.1 cm; Wt 99.8 kg
--- OUTSIDE RECORDS SUMMARY | 2021-11-23 19:44 | XMS ---
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 Care History Medical/Surgical 11/22/2021 [facility] - Patient is currently established with [facility]. If patient is seen in the ED during business hours. Please contact CHWs at [facility]. Care Recommendation: If this patient has [...] providing care. E.D. VISIT COUNT (12 MO.) [address] [facility] TOTAL 8 NOTE: Visits indicate total known visits. ED/UCC VISIT TRACKING (12 MO.) 11/23/2021 19:41 [facility] [place] TYPE: Emergency COMPLAINT: - CHEST PAIN 11/20/2021 07:35 [facility] [place] TYPE: Emergency COMPLAINT: - FALL DIAGNOSES: - Chest pain, unspecified - Unspecified atrial fibrillation - Fall on same level from slipping, tripping and stumbling with subsequent striking against other object, initial encounter - Civilian activity done for income or pay - Hypothyroidism, unspecified - Allergy status to other drugs, medicaments and biological substances - Sleep apnea, unspecified - bed bug exterminator (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 of systemic steroids - Contusion of unspecified front wall of thorax, initial encounter - Essential (primary) hypertension - Other senior care (current) drug therapy - bed bug exterminator (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 of anticoagulants - Allergy status to analgesic agent 11/06/2021 14:26 [facility] [place] TYPE: Emergency COMPLAINT: - SUTURE REMOVAL 10/26/2021 19:00 [facility] [place] TYPE: Emergency COMPLAINT: - LT FINGER LACERATION DIAGNOSES: - Allergy status to analgesic agent - longterm (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 of anticoagulants - Contact with knife, initial encounter - Other exterminator helper termite (current) drug therapy - Laceration without foreign body of left index finger without damage to nail, initial encounter - Sleep apnea, unspecified - Allergy status to other drugs, medicaments and biological substances - longterm (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 of systemic steroids - Essential [...] other drugs, medicaments and biological substances - longterm (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 of anticoagulants - bed bug exterminator (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 of systemic steroids - Other exterminator helper termite (current) drug therapy - Allergy status to analgesic agent - Unspecified atrial fibrillation 03/03/2021 15:45 [facility] [place] TYPE: Emergency COMPLAINT: - BLEEDING FROM EAR/PAIN DIAGNOSES: - Allergy status to sulfonamides - longterm (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 of anticoagulants - Other exterminator helper termite (current) drug therapy - Hypothyroidism, unspecified - Otorrhagia, left ear - longterm (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 of systemic steroids - Allergy [...] unspecified - Essential (primary) hypertension - Other exterminator helper termite (current) drug therapy - Cough - Pneumonia, unspecified organism - Allergy status to other drugs, medicaments and biological substances 12/03/2020 21:[address] [facility] [place] TYPE: Emergency COMPLAINT: - LEFT LOWER BACK PAIN DIAGNOSES: - longterm (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 of anticoagulants - Allergy status to other drugs, medicaments and biological substances - Other senior care (current) drug therapy - Exposure to other specified factors, initial encounter - Sleep apnea, unspecified - Strain of muscle, fascia and tendon of abdomen, initial encounter - Allergy status to sulfonamides - Hypothyroidism, unspecified - Allergy status to other antibiotic agents - longterm (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 of systemic steroids INPATIENT VISIT TRACKING (12 MO.) No inpatient visits to display in this time frame [id number]
[2021-11-23] MEDS ORDERED: PERCOCET 5-3251 EACH PO (22:13)
--- NOTE | 2021-11-24 17:20 | EKG ---
[facility] [address] [facility] [facility] [address] [place], [place] [address] Signed Normal sinus rhythm Nonspecific ST and T wave abnormality Abnormal ECG No previous ECGs available Confirmed by ROBIN MCNEIL MD ([id number]) on 11/24/2021 5:20:33 PM Electronically Signed By: ROBIN MCNEIL MD 11/24/21 1720 PATIENT NAME: AMADA SPAIN Electrocardiogram DATE OF : 45 PHYSICIAN: ROBIN MCNEIL MD REPORT #: [id number] REPORT IS CONFIDENTIAL AND NOT TO BE RELEASED WITHOUT AUTHORIZATION
== END 2021-11-23 22:30 | disposition home or self-care (01) ==
LOC: ED 19:41
DX: S20.212A Contusion of left front wall of thorax, initial encounter (principal); G47.30 Sleep apnea, unspecified; E03.9 Hypothyroidism, unspecified; I48.91 Unspecified atrial fibrillation; I10 Essential (primary) hypertension; Z88.8 Allergy status to other drugs, medicaments and biological substances; Z88.6 Allergy status to analgesic agent; Z79.899 Other long term (current) drug therapy; Z79.01 Long term (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 of anticoagulants; Z79.52 Long term (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 of systemic steroids; W19.XXXA Unspecified fall, initial encounter; W22.8XXA Striking against or struck by other objects, initial encounter
CPT/HCPCS: 36415; 51701; 71260; 74177; 80053; 81001; 85025; 85610; 93005; 93010; 99284-25; J1170; J2270; Q9967

== ENCOUNTER 2022-09-12 12:55 | Emergency (ER) | payer MEDICARE ==
[~2022-09-12] VITALS: Ht 165.1 cm; Wt 98.0 kg
[~2022-09-12 12:55] MED LIST changes: +ADULT LOW DOSE81 MG PO; +FLUTICASONE PRO15 G1 NAS; +FLUTICASONE PRO15 G1 TOP; +LEVOTHYROXINE100 MCG PO
--- OUTSIDE RECORDS SUMMARY | 2022-09-12 12:56 | XMS ---
PreManage Notification: AMADA SPAIN Security White Sugar Syrup Operator Events No recent Security Events currently on file CRITERIA MET - [facility] - 2 Visits in 30 Days - [facility] - Has Care Guidelines - PDMP CARE PROVIDERS EWA [facility] Internal Medicine 03/06/2021-Current PHONE: Unknown [facility] Current PHONE: Unknown Brianna has no Care Guidelines for this patient. Care History Medical/Surgical 11/28/2021 [facility] - Patient is currently established with [facility]. If patient is seen in the ED during business hours. Please contact CHWs at [facility]. Care Recommendation: If this patient [...] care. E.D. VISIT COUNT (12 MO.) [address] [facility] TOTAL 7 NOTE: Visits indicate total known visits. ED/UCC VISIT TRACKING (12 MO.) 09/12/2022 12:[address] [facility] [place] TYPE: Emergency COMPLAINT: - ABDOMINAL PAIN 09/09/2022 12:03 [facility] [place] TYPE: Emergency COMPLAINT: - BODY NUMBNESS 11/23/2021 19:41 [facility] [place] TYPE: Emergency COMPLAINT: - CHEST PAIN DIAGNOSES: - Mastodynia - Striking against or struck by other objects, initial encounter - Allergy status to analgesic agent - Other prison (current) drug therapy - Unspecified fall, initial encounter - manager long term care (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 of anticoagulants - Sleep apnea, unspecified - Unspecified atrial fibrillation - Essential (primary) hypertension - Contusion of left front wall of thorax, initial encounter - Allergy status to other drugs, medicaments and biological substances - Hypothyroidism, unspecified - manager long term care (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 of systemic steroids 11/20/2021 07:35 [facility] [place] TYPE: Emergency COMPLAINT: - FALL DIAGNOSES: - Allergy status to analgesic agent - Civilian activity done for income or pay - Other prison (current) drug therapy - Unspecified atrial fibrillation - Contusion of unspecified front wall of thorax, initial encounter - Sleep apnea, unspecified - Hypothyroidism, unspecified - intermediate (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 of anticoagulants - Fall on same level from slipping, tripping and stumbling with subsequent striking against other object, initial encounter - Essential (primary) hypertension - Chest pain, unspecified - intermediate (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 of systemic steroids - Allergy status to other drugs, medicaments and biological substances 11/06/2021 14:26 [facility] [place] TYPE: Emergency COMPLAINT: - SUTURE REMOVAL 10/26/2021 19:00 [facility] [place] TYPE: Emergency COMPLAINT: - LT FINGER LACERATION DIAGNOSES: - Other prison (current) drug therapy - Hypothyroidism, unspecified - intermediate (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 of anticoagulants - Essential (primary) hypertension - Allergy status to other drugs, medicaments and biological substances - Laceration without foreign body of left index finger without damage to nail, initial encounter - Contact with knife, initial encounter - Unspecified atrial fibrillation - Allergy status to analgesic agent - manager long term care (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 of systemic steroids - Sleep apnea, unspecified 09/22/2021 15:56 [facility] [place] TYPE: Emergency COMPLAINT: - FALL,RT SIDED PAIN DIAGNOSES: - Essential (primary) hypertension - Allergy status to analgesic agent - Shortness of breath - manager long term care (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 of systemic steroids - Allergy status to other drugs, medicaments and biological substances - Fall on same level, unspecified, initial encounter - Unspecified atrial fibrillation - Sleep apnea, unspecified - Other machine long goods helper (current) drug therapy - Hypothyroidism, unspecified - intermediate (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 of anticoagulants - Contusion of right front wall of thorax, initial encounter INPATIENT VISIT TRACKING (12 MO.) 09/09/2022 12:04 [facility] [place] TYPE: Observation COMPLAINT: - RIGHT SIDED WEAKNESS [id number]
[2022-09-12] MEDS ORDERED: ANUSOL-HC25 MG PR (17:55)
[2022-09-12] MEDS ORDERED: METRONIDAZOLE500 MG PO (17:55)
[2022-09-12] MEDS ORDERED: ONDANSETRON ODT4 MG PO (17:55)
[2022-09-12] MEDS ORDERED: AMOX TR-K CLV1 EAC1 PO (17:55)
[2022-09-12] MEDS ORDERED: DICYCLOMINE HCL20 MG PO (17:55)
== END 2022-09-12 18:15 | disposition home or self-care (01) ==
LOC: ED 12:55
DX: K52.9 Noninfective gastroenteritis and colitis, unspecified (principal); I10 Essential (primary) hypertension; I48.91 Unspecified atrial fibrillation; E03.9 Hypothyroidism, unspecified; G47.30 Sleep apnea, unspecified; Z86.73 Personal history of transient ischemic attack (TIA), and cerebral infarction without residual deficits; Z88.8 Allergy status to other drugs, medicaments and biological substances; Z88.2 Allergy status to sulfonamides; Z88.6 Allergy status to analgesic agent; Z79.899 Other long term (current) drug therapy; Z79.01 Long term (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 of anticoagulants
CPT/HCPCS: 36415; 51701; 74177; 80053; 81001; 85025; 85610; 85730; 86850; 86900; 86901; 99284-25; J1170; J2405; Q9967

== ENCOUNTER 2022-09-15 20:04 | Emergency (ER) | payer MEDICARE ==
[~2022-09-15] VITALS: Ht 165.1 cm; Wt 98.0 kg
[~2022-09-15 20:04] MED LIST changes: +AMOX TR-K CLV1 EAC1 PO; +ANUSOL-HC25 MG PR; +DICYCLOMINE HCL20 MG PO; +METRONIDAZOLE500 MG PO; +ONDANSETRON ODT4 MG PO
--- OUTSIDE RECORDS SUMMARY | 2022-09-15 20:08 | XMS ---
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 Care History Medical/Surgical 11/28/2021 [facility] - Patient is currently established with [facility]. If patient is seen in the ED during business hours. Please contact CHWs at [facility]. Care Recommendation: If this patient [...] COUNT (12 MO.) [address] [facility] TOTAL 8 NOTE: Visits indicate total known visits. ED/UCC VISIT TRACKING (12 MO.) 09/15/2022 20:06 [facility] [place] TYPE: Emergency COMPLAINT: - N/V SHARP PAIN ABOVE HER EYE 09/12/2022 12:55 [facility] [place] TYPE: Emergency COMPLAINT: - ABDOMINAL PAIN DIAGNOSES: - alf (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 of anticoagulants - Allergy status to sulfonamides - Allergy status to other drugs, medicaments and biological substances - Unspecified atrial fibrillation - Other half-way (current) drug therapy - Hypothyroidism, unspecified - Essential (primary) hypertension - Noninfective gastroenteritis and colitis, unspecified - Sleep apnea, unspecified - Hemorrhage of anus and rectum - Allergy status to analgesic agent - Personal history of transient ischemic attack (TIA), and cerebral infarction without residual deficits 09/09/2022 12:03 [facility] [place] TYPE: Emergency COMPLAINT: - BODY NUMBNESS 11/23/2021 19:41 [facility] [place] TYPE: Emergency COMPLAINT: - CHEST PAIN DIAGNOSES: - Sleep apnea, unspecified - Unspecified atrial fibrillation - Essential (primary) hypertension - Contusion of left front wall of thorax, initial encounter - Allergy status to other drugs, medicaments and biological substances - Hypothyroidism, unspecified - terminal system operator (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 of systemic steroids - Mastodynia - Striking against or struck by other objects, initial encounter - Allergy status to analgesic agent - Other remote computer terminal operator (current) drug therapy - Unspecified fall, initial encounter - alf (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 of anticoagulants 11/20/2021 07:35 [facility] [place] TYPE: Emergency COMPLAINT: - FALL DIAGNOSES: - Hypothyroidism, unspecified - alf (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 of anticoagulants - Fall on same level from slipping, tripping and stumbling with subsequent striking against other object, initial encounter - Essential (primary) hypertension - Chest pain, unspecified - terminal system operator (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 of systemic steroids - Allergy status to other drugs, medicaments and biological substances - Allergy status to analgesic agent - Civilian activity done for income or pay - Other half-way (current) drug therapy - Unspecified atrial fibrillation - Contusion of unspecified front wall of thorax, initial encounter - Sleep apnea, unspecified 11/06/2021 14:26 [facility] [place] TYPE: Emergency COMPLAINT: - SUTURE REMOVAL 10/26/2021 19:00 [facility] [place] TYPE: Emergency COMPLAINT: - LT FINGER LACERATION DIAGNOSES: - Laceration without foreign body of left index finger without damage to nail, initial encounter - Contact with knife, initial encounter - Unspecified atrial fibrillation - Allergy status to analgesic agent - alf (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 of systemic steroids - Sleep apnea, unspecified - Other remote computer terminal operator (current) drug therapy - Hypothyroidism, unspecified - terminal system operator (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 of anticoagulants - Essential (primary) hypertension - Allergy status to other drugs, medicaments and biological substances 09/22/2021 15:56 [facility] [place] TYPE: Emergency COMPLAINT: - FALL,RT SIDED PAIN DIAGNOSES: - Fall on same level, unspecified, initial encounter - Unspecified atrial fibrillation - Sleep apnea, unspecified - Other remote computer terminal operator (current) drug therapy - Hypothyroidism, unspecified - terminal system operator (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 of anticoagulants - Contusion of right front wall of thorax, initial encounter - Essential (primary) hypertension - Allergy status to analgesic agent - Shortness of breath - alf (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 of systemic steroids - Allergy status to other drugs, medicaments and biological substances INPATIENT VISIT TRACKING (12 MO.) 09/09/2022 12:04 [facility] [place] TYPE: Observation COMPLAINT: - RIGHT SIDED WEAKNESS DIAGNOSES: - Allergy status to other drugs, medicaments and biological substances - Hyperlipidemia, unspecified - Allergy status to sulfonamides - Hypothyroidism, unspecified - Contact with and (suspected) exposure to COVID-19 - Hemiplegia, unspecified affecting right dominant side - Allergy status to narcotic agent - Other cerebral infarction due to occlusion or stenosis of small artery - Unspecified atrial fibrillation [email or web address]
[2022-09-15] MEDS ORDERED: HYDROCODON-ACE1 EA10 PO (23:56)
== END 2022-09-16 00:24 | disposition home or self-care (01) ==
LOC: ED 20:04
DX: K52.9 Noninfective gastroenteritis and colitis, unspecified (principal); Z86.73 Personal history of transient ischemic attack (TIA), and cerebral infarction without residual deficits; G47.30 Sleep apnea, unspecified; E03.9 Hypothyroidism, unspecified; I10 Essential (primary) hypertension; I48.91 Unspecified atrial fibrillation; Z88.8 Allergy status to other drugs, medicaments and biological substances; Z88.1 Allergy status to other antibiotic agents; Z88.2 Allergy status to sulfonamides; Z79.899 Other long term (current) drug therapy; Z79.01 Long term (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 of anticoagulants
CPT/HCPCS: 36415; 70450; 74177; 80053; 81001; 85025; 85610; 96361; 96375; 99284-25; A9270; J2270; J2405; J7121; Q9967

== ENCOUNTER 2022-11-22 13:18 | Emergency (ER) | payer MEDICARE ==
[~2022-11-22] VITALS: Ht 165.1 cm; Wt 98.0 kg
--- NOTE | ~2022-11-22 | EKG ---
[facility] [address] [place], [place] [address] Draft EK completed, results pending confirmation PATIENT NAME: AMADA SPAIN Electrocardiogram DATE OF : 45 PHYSICIAN: PRELIMINARY REPORT #: [id number] REPORT IS CONFIDENTIAL AND NOT TO BE RELEASED WITHOUT AUTHORIZATION
[~2022-11-22 13:18] MED LIST changes: +NITROFURANTOIN100 M1 PO
--- OUTSIDE RECORDS SUMMARY | 2022-11-22 13:21 | XMS ---
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 Care History Medical/Surgical 11/28/2021 [facility] - Patient is currently established with [facility]. If patient is seen in the ED during business hours. Please contact CHWs at [facility]. Care Recommendation: If this patient [...] known visits. ED/UCC VISIT TRACKING (12 MO.) 11/22/2022 13:18 [facility] [place] TYPE: Emergency COMPLAINT: - FALL 09/15/2022 20:06 [facility] [place] TYPE: Emergency COMPLAINT: - N/V SHARP PAIN ABOVE HER EYE DIAGNOSES: - Allergy status to other antibiotic agents - Allergy status to other drugs, medicaments and biological substances - Allergy status to sulfonamides - Essential (primary) hypertension - Hypothyroidism, unspecified - buttermaker (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 of anticoagulants - Lower abdominal pain, unspecified - Noninfective gastroenteritis and colitis, unspecified - Other penitentiary (current) drug therapy - Personal history of transient ischemic attack (TIA), and cerebral infarction without residual deficits - Sleep apnea, unspecified - Unspecified atrial fibrillation 09/12/2022 12:55 [facility] [place] TYPE: Emergency COMPLAINT: - ABDOMINAL PAIN DIAGNOSES: - Allergy status to analgesic agent - Allergy status to other drugs, medicaments and biological substances - Allergy status to sulfonamides - Essential (primary) hypertension - Hemorrhage of anus and rectum - Hypothyroidism, unspecified - long-term (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 of anticoagulants - Noninfective gastroenteritis and colitis, unspecified - Other penitentiary (current) drug therapy - Personal history of transient ischemic attack (TIA), and cerebral infarction without residual deficits - Sleep apnea, unspecified - Unspecified atrial fibrillation 09/09/2022 12:03 [facility] [place] TYPE: Emergency COMPLAINT: - BODY NUMBNESS 11/23/2021 19:41 [facility] [place] TYPE: Emergency COMPLAINT: - CHEST PAIN DIAGNOSES: - Allergy status to analgesic agent - Allergy status to other drugs, medicaments and biological substances - Contusion of left front wall of thorax, initial encounter - Essential (primary) hypertension - Hypothyroidism, unspecified - buttermaker (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 of anticoagulants - long-term (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 of systemic steroids - Mastodynia - Other penitentiary (current) drug therapy - Sleep apnea, unspecified - Striking against or struck by other objects, initial encounter - Unspecified atrial fibrillation - Unspecified fall, initial encounter INPATIENT VISIT TRACKING (12 MO.) 09/09/2022 12:04 [facility] [place] TYPE: Observation COMPLAINT: - RIGHT SIDED WEAKNESS DIAGNOSES: - Allergy status to narcotic agent - Allergy status to other drugs, medicaments and biological substances - Allergy status to sulfonamides - Contact with and (suspected) exposure to COVID-19 - Hemiplegia, unspecified affecting right dominant side - Hyperlipidemia, unspecified - Hypothyroidism, unspecified - Other cerebral infarction due to occlusion or stenosis of small artery - Unspecified atrial fibrillation [id number]
[2022-11-22 15:16] VITALS: BP 161/77
== END 2022-11-22 15:16 | disposition home or self-care (01) ==
LOC: ED 13:18
DX: R55 Syncope and collapse (principal); S80.01XA Contusion of right knee, initial encounter; S60.211A Contusion of right wrist, initial encounter; S50.02XA Contusion of left elbow, initial encounter; W19.XXXA Unspecified fall, initial encounter; I10 Essential (primary) hypertension; I48.91 Unspecified atrial fibrillation; Z88.1 Allergy status to other antibiotic agents; Z88.2 Allergy status to sulfonamides; Z88.8 Allergy status to other drugs, medicaments and biological substances; Z79.899 Other long term (current) drug therapy; Z79.01 Long term (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 of anticoagulants
CPT/HCPCS: 36415; 70450; 73080; 73110; 73560; 80053; 85025; 85610; 93005; 93010

== ENCOUNTER 2022-12-21 11:37 | Emergency (ER) | payer MEDICARE ==
[~2022-12-21] VITALS: Ht 165.1 cm; Wt 98.0 kg
--- OUTSIDE RECORDS SUMMARY | 2022-12-21 11:40 | XMS ---
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 Current PHONE: Unknown Brianna has no Care Guidelines for this patient. Care History Medical/Surgical 11/28/2021 [facility] - Patient is currently established with [facility]. If patient is seen in the ED during business hours. Please contact CHWs at [facility]. Care Recommendation: If this patient has [...] known visits. ED/UCC VISIT TRACKING (12 MO.) 12/21/2022 11:38 [facility] [place] TYPE: Emergency COMPLAINT: - EYES RED/SWOLLEN 11/22/2022 13:18 [facility] [place] TYPE: Emergency COMPLAINT: - FALL DIAGNOSES: - Allergy status to other antibiotic agents - Allergy status to other drugs, medicaments and biological substances - Allergy status to sulfonamides - Contusion of left elbow, initial encounter - Contusion of right knee, initial encounter - Contusion of right wrist, initial encounter - Essential (primary) hypertension - intermediate designer (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 of anticoagulants - Other longshore equipment operator (current) drug therapy - Syncope and collapse - Unspecified atrial fibrillation - Unspecified fall, initial encounter 09/15/2022 20:06 [facility] [place] TYPE: Emergency COMPLAINT: - N/V SHARP PAIN ABOVE HER EYE DIAGNOSES: - Allergy status to other antibiotic agents - Allergy status to other drugs, medicaments and biological substances - Allergy status to sulfonamides - Essential (primary) hypertension - Hypothyroidism, unspecified - intermediate designer (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 of anticoagulants - Lower abdominal pain, unspecified - Noninfective gastroenteritis and colitis, unspecified - Other longshore equipment operator (current) drug therapy - Personal history of [...] anus and rectum - Hypothyroidism, unspecified - intermediate designer (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 of anticoagulants - Noninfective gastroenteritis and colitis, unspecified - Other care home (current) drug therapy - Personal history of transient ischemic attack (TIA), and cerebral infarction without residual deficits - Sleep apnea, unspecified - Unspecified atrial fibrillation 09/09/2022 12:03 [facility] [place] TYPE: Emergency COMPLAINT: - BODY NUMBNESS INPATIENT VISIT TRACKING (12 MO.) 09/09/2022 12:04 [...] of small artery - Unspecified atrial fibrillation [id number]
[2022-12-21] MEDS ORDERED: MAXITROL EYE DRO5 ML OS (12:16)
[2022-12-21 12:27] VITALS: BP 169/87
== END 2022-12-21 12:29 | disposition home or self-care (01) ==
LOC: ED 11:37
DX: H10.13 Acute atopic conjunctivitis, bilateral (principal); I10 Essential (primary) hypertension; Z96.653 Presence of artificial knee joint, bilateral; Z88.8 Allergy status to other drugs, medicaments and biological substances; Z88.2 Allergy status to sulfonamides; Z88.6 Allergy status to analgesic agent; Z79.82 Long term (current) use of aspirin; Z79.02 Long term (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 of antithrombotics/antiplatelets; Z79.890 Hormone replacement therapy; Z79.899 Other long term (current) drug therapy
CPT/HCPCS: 99283

== ENCOUNTER 2023-03-18 14:40 | Emergency (ER) | payer MEDICARE ==
[~2023-03-18] VITALS: Ht 165.1 cm; Wt 91.6 kg
--- OUTSIDE RECORDS SUMMARY | ~2023-03-18 | XMS | Continuity of Care Document ---
Demographics + + + | Address | [address] [place] [address] | | | [place] [address] | + + + | Preferred Language | Unknown | + + + | Marital Status | | + + + | Cheondoism Affiliation | Unknown | + + + | Race | White | + + + | Ethnic Group | Not or | + + + Author + + + | Author | [facility] | + + + | Organization | [facility] | + + + | Address | [address] | | | [place] [address] | + + + | Phone | | + + + Care Team Providers + + + + | Care Model And Mold Maker Name | Role | Phone | + + + + Unavailable | Unavailable | + + + + Unavailable | Unavailable | + + + + Unavailable | Unavailable | + + + + Unavailable | Unavailable | + + + + Unavailable | Unavailable | + + + + Allergies and Intolerances + + + + + + | date | description | facility | reaction | severity | + + + + + + | (no date) | | [facility] | (no reaction) | (no severity) | | | Sulfamethoxazol | [facility] | | | + + + + + + | (no date) | Trimethoprim | [facility] | (no reaction) | (no severity) | | | | [facility] | | | + + + + + + | (no date) | Mild | [facility] | (no reaction) | (no severity) | | | | [facility] | | | + + + + + + | (no date) | Rash | [facility] | (no reaction) | (no severity) | | | | [facility] | | | + + + + + + | (no date) | Chest pain | [facility] | (no reaction) | (no severity) | | | | [facility] | | | + + + + + + | (no date) | Sumatriptan | [facility] | (no reaction) | (no severity) | | | | [facility] | | | + + + + + + | (no date) | Trimethoprim | [facility] | (no reaction) | (no severity) | | | [facility] | | | + + + + + + | (no date) | | [facility] | (no reaction) | (no severity) | | | Sulfamethoxazol | [facility] | | | + + + + + + | (no date) | Sumatriptan | [facility] | (no reaction) | (no severity) | | | | [facility] | | | + + + + + + | (no date) | Ibuprofen | [facility] | (no reaction) | (no severity) | | | | [facility] | | | + + + + + + | (no date) | Meperidine | [facility] | (no reaction) | (no severity) | | | | [facility] | | | + + + + + + | (no date) | Nausea alone | [facility] | (no reaction) | (no severity) | | | [facility] | | | + + + + + + | (no date) | Ibuprofen | [facility] | (no reaction) | (no severity) | | | | [facility] | | | + + + + + + | (no date) | Meperidine | [facility] | (no reaction) | (no severity) | | | | [facility] | | | + + + + + + | (no date) | Sumatriptan | [facility] | (no reaction) | (no severity) | | | | [facility] | | | + + + + + + | (no date) | Meperidine | [facility] | (no reaction) | (no severity) | | | | [facility] | | | + + + + + + | (no date) | Trimethoprim | [facility] | (no reaction) | (no severity) | | | | [facility] | | | + + + + + + | (no date) | ibuprofen | [facility] | (no reaction) | (no severity) | + + + + + + | (no date) | | [facility] | (no reaction) | (no severity) | | | sulfamethoxazol | | | | | | e | | | | + + + + + + | (no date) | trimethoprim | [facility] | (no reaction) | (no severity) | + + + + + + | (no date) | sumatriptan | [facility] | (no reaction) | (no severity) | + + + + + + | (no date) | meperidine | [facility] | (no reaction) | (no severity) | + + + + + + | (no date) | | [facility] | (no reaction) | (no severity) | | | Sulfamethoxazol | [facility] | | | + + + + + + | (no date) | Ibuprofen | [facility] | (no reaction) | (no severity) | | | | [facility] | | | + + + + + + Encounters No information. Functional Status No information. Immunizations + + + + | date | description | facility | + + + + | 2017-12-23 00:00 | Botulinum Antitoxin | [facility] | + + + + | 2017-12-23 00:00 | Botulinum Antitoxin | [facility] | + + + + | 2017-12-23 00:00 | Botulinum Antitoxin | [facility] | + + + + | 2019-02-09 00:00 | Botulinum Antitoxin | [facility] | + + + + | 2019-02-09 00:00 | Botulinum Antitoxin | [facility] | + + + + | 2019-02-09 00:00 | Botulinum Antitoxin | [facility] | + + + + Medications + + + + | date | description | facility | + + + + | 2022-09-10 00:00 | FLUOXETINE HCL | [facility] | + + + + | 2022-09-12 00:00 | FLUOXETINE HCL | [facility] | + + + + | 2022-09-16 00:00 | FLUOXETINE HCL | [facility] | + + + + | 2022-11-22 00:00 | FLUOXETINE HCL | [facility] | + + + + | 2022-12-21 00:00 | FLUOXETINE HCL | [facility] | + + + + | 2022-09-12 00:00 | ONDANSETRON | [facility] | + + + + | 2022-09-12 00:00 | ONDANSETRON | [facility] | + + + + | 2014-09-14 00:00 | OXYCODONE | [facility] | | | HCL/ACETAMINOPHEN | | + + + + | 2014-09-14 00:00 | OXYCODONE | [facility] | | | HCL/ACETAMINOPHEN | | + + + + | 2014-09-14 00:00 | OXYCODONE | [facility] | | | HCL/ACETAMINOPHEN | | + + + + | 2021-10-27 00:00 | MUPIROCIN | [facility] | + + + + | 2021-10-27 00:00 | MUPIROCIN | [facility] | + + + + | 2021-10-27 00:00 | MUPIROCIN | [facility] | + + + + | 2022-09-12 00:00 | HYDROCORTISONE ACETATE | [facility] | + + + + | 2022-09-12 00:00 | HYDROCORTISONE ACETATE | [facility] | + + + + | 2022-09-12 00:00 | HYDROCORTISONE ACETATE | [facility] | + + + + | 2022-09-10 00:00 | OMEPRAZOLE | [facility] | + + + + | 2022-09-12 00:00 | OMEPRAZOLE | [facility] | + + + + | 2022-09-16 00:00 | OMEPRAZOLE | [facility] | + + + + | 2022-11-22 00:00 | OMEPRAZOLE | [facility] | + + + + | 2022-12-21 00:00 | OMEPRAZOLE | [facility] | + + + + | 2022-12-21 00:00 | ROCIO/POLYMYX B | [facility] | | | SULF/DEXAMETH | | + + + + | 2022-09-10 00:00 | ATORVASTATIN CALCIUM | [facility] | + + + + | 2022-09-12 00:00 | ATORVASTATIN CALCIUM | [facility] | + + + + | 2022-09-16 00:00 | ATORVASTATIN CALCIUM | [facility] | + + + + | 2022-11-22 00:00 | ATORVASTATIN CALCIUM | [facility] | + + + + | 2022-12-21 00:00 | ATORVASTATIN CALCIUM | [facility] | + + + + | 2022-09-10 00:00 | ASPIRIN | [facility] | + + + + | 2022-09-10 00:00 | ASPIRIN | [facility] | + + + + | 2022-09-10 00:00 | ASPIRIN | [facility] | + + + + | 2016-11-01 00:00 | CEPHALEXIN | [facility] | + + + + | 2016-11-01 00:00 | CEPHALEXIN | [facility] | + + + + | 2016-11-01 00:00 | CEPHALEXIN | [facility] | + + + + | 2022-09-12 00:00 | METRONIDAZOLE | [facility] | + + + + | 2022-09-12 00:00 | METRONIDAZOLE | [facility] | + + + + | 2017-11-05 00:00 | ONDANSETRON | [facility] | + + + + | 2017-11-05 00:00 | ONDANSETRON | [facility] | + + + + | 2017-11-05 00:00 | ONDANSETRON | [facility] | + + + + | 2022-09-12 00:00 | AMOXICILLIN/POTASSIUM CLAV | [facility] | | | | | + + + + | 2022-09-12 00:00 | AMOXICILLIN/POTASSIUM CLAV | [facility] | | | | | + + + + | 2022-09-10 00:00 | DULOXETINE HCL | [facility] | + + + + | 2022-09-12 00:00 | DULOXETINE HCL | [facility] | + + + + | 2022-09-16 00:00 | DULOXETINE HCL | [facility] | + + + + | 2022-11-22 00:00 | DULOXETINE HCL | [facility] | + + + + | 2022-12-21 00:00 | DULOXETINE HCL | [facility] | + + + + | 2022-09-10 00:00 | CHOLECALCIFEROL (VITAMIN | [facility] | | | D3) | | + + + + | 2022-09-12 00:00 | CHOLECALCIFEROL (VITAMIN | [facility] | | | D3) | | + + + + | 2022-09-16 00:00 | CHOLECALCIFEROL (VITAMIN | [facility] | | | D3) | | + + + + | 2022-11-22 00:00 | CHOLECALCIFEROL (VITAMIN | [facility] | | | D3) | | + + + + | 2022-12-21 00:00 | CHOLECALCIFEROL (VITAMIN | [facility] | | | D3) | | + + + + | 2022-09-10 00:00 | CYCLOBENZAPRINE HCL | [facility] | + + + + | 2022-09-12 00:00 | CYCLOBENZAPRINE HCL | [facility] | + + + + | 2022-09-16 00:00 | CYCLOBENZAPRINE HCL | [facility] | + + + + | 2022-11-22 00:00 | CYCLOBENZAPRINE HCL | [facility] | + + + + | 2022-12-21 00:00 | CYCLOBENZAPRINE HCL | [facility] | + + + + | 2014-09-14 00:00 | CYCLOBENZAPRINE HCL | [facility] | + + + + | 2014-09-14 00:00 | CYCLOBENZAPRINE HCL | [facility] | + + + + | 2014-09-14 00:00 | CYCLOBENZAPRINE HCL | [facility] | + + + + | 2022-09-10 00:00 | WARFARIN SODIUM | [facility] | + + + + | 2022-09-12 00:00 | WARFARIN SODIUM | [facility] | + + + + | 2022-09-16 00:00 | WARFARIN SODIUM | [facility] | + + + + | 2022-11-22 00:00 | WARFARIN SODIUM | [facility] | + + + + | 2022-12-21 00:00 | WARFARIN SODIUM | [facility] | + + + + | 2013-05-06 00:00 | HYDROCODONE/APAP | [facility] | | | (10-325MG) | | + + + + | 2013-05-06 00:00 | HYDROCODONE/APAP | [facility] | | | (10-325MG) | | + + + + | 2013-05-06 00:00 | HYDROCODONE/APAP | [facility] | | | (10-325MG) | | + + + + | 2020-12-03 00:00 | HYDROCODONE | [facility] | | | BIT/ACETAMINOPHEN | | + + + + | 2020-12-03 00:00 | HYDROCODONE | [facility] | | | BIT/ACETAMINOPHEN | | + + + + | 2020-12-03 00:00 | HYDROCODONE | [facility] | | | BIT/ACETAMINOPHEN | | + + + + | 2022-09-15 00:00 | HYDROCODONE | [facility] | | | BIT/ACETAMINOPHEN | | + + + + | 2014-01-24 00:00 | HYDROCODONE | [facility] | | | BIT/ACETAMINOPHEN | | + + + + | 2014-01-24 00:00 | HYDROCODONE | [facility] | | | BIT/ACETAMINOPHEN | | + + + + | 2014-01-24 00:00 | HYDROCODONE | [facility] | | | BIT/ACETAMINOPHEN | | + + + + | 2022-09-10 00:00 | CHOLECALCIFEROL (VITAMIN | [facility] | | | D3) | | + + + + | 2022-09-12 00:00 | CHOLECALCIFEROL (VITAMIN | [facility] | | | D3) | | + + + + | 2022-09-16 00:00 | CHOLECALCIFEROL (VITAMIN | [facility] | | | D3) | | + + + + | 2022-11-22 00:00 | CHOLECALCIFEROL (VITAMIN | [facility] | | | D3) | | + + + + | 2022-12-21 00:00 | CHOLECALCIFEROL (VITAMIN | [facility] | | | D3) | | + + + + | 2022-09-10 00:00 | METOPROLOL SUCCINATE | [facility] | + + + + | 2022-09-12 00:00 | METOPROLOL SUCCINATE | [facility] | + + + + | 2022-09-16 00:00 | METOPROLOL SUCCINATE | [facility] | + + + + | 2022-11-22 00:00 | METOPROLOL SUCCINATE | [facility] | + + + + | 2022-12-21 00:00 | METOPROLOL SUCCINATE | [facility] | + + + + | 2022-09-10 00:00 | LEVOTHYROXINE SODIUM | [facility] | + + + + | 2022-09-12 00:00 | LEVOTHYROXINE SODIUM | [facility] | + + + + | 2022-09-16 00:00 | LEVOTHYROXINE SODIUM | [facility] | + + + + | 2022-11-22 00:00 | LEVOTHYROXINE SODIUM | [facility] | + + + + | 2022-12-21 00:00 | LEVOTHYROXINE SODIUM | [facility] | + + + + | 2022-09-10 00:00 | Fluticasone Propionate | [facility] | + + + + | 2022-09-12 00:00 | Fluticasone Propionate | [facility] | + + + + | 2022-09-16 00:00 | Fluticasone Propionate | [facility] | + + + + | 2022-09-10 00:00 | ALENDRONATE SODIUM | [facility] | + + + + | 2022-09-12 00:00 | ALENDRONATE SODIUM | [facility] | + + + + | 2022-09-16 00:00 | ALENDRONATE SODIUM | [facility] | + + + + | 2022-11-22 00:00 | ALENDRONATE SODIUM | [facility] | + + + + | 2022-12-21 00:00 | ALENDRONATE SODIUM | [facility] | + + + + | 2022-09-10 00:00 | LEVOTHYROXINE SODIUM | [facility] | + + + + | 2022-09-12 00:00 | LEVOTHYROXINE SODIUM | [facility] | + + + + | 2022-09-16 00:00 | LEVOTHYROXINE SODIUM | [facility] | + + + + | 2022-11-22 00:00 | LEVOTHYROXINE SODIUM | [facility] | + + + + | 2022-12-21 00:00 | LEVOTHYROXINE SODIUM | [facility] | + + + + | 2022-09-10 00:00 | LOSARTAN POTASSIUM | [facility] | + + + + | 2022-09-12 00:00 | LOSARTAN POTASSIUM | [facility] | + + + + | 2022-09-16 00:00 | LOSARTAN POTASSIUM | [facility] | + + + + | 2022-11-22 00:00 | LOSARTAN POTASSIUM | [facility] | + + + + | 2022-12-21 00:00 | LOSARTAN POTASSIUM | [facility] | + + + + | 2022-09-12 00:00 | DICYCLOMINE HCL | [facility] | + + + + | 2022-09-12 00:00 | DICYCLOMINE HCL | [facility] | + + + + Problems + + + + | date | description | facility | + + + + | 2014-09-14 00:00 | Acute low back pain | [facility] | + + + + | 2014-09-14 00:00 | Acute low back pain | [facility] | + + + + | 2014-09-14 00:00 | Acute low back pain | [facility] | + + + + | 2015-11-13 00:00 | Headache | [facility] | + + + + | 2015-11-13 00:00 | Headache | [facility] | + + + + | 2015-11-13 00:00 | Headache | [facility] | + + + + | 2016-11-01 00:00 | Constipation | [facility] | + + + + | 2016-11-01 00:00 | Constipation | [facility] | + + + + | 2016-11-01 00:00 | Constipation | [facility] | + + + + | 2016-11-01 00:00 | Urinary tract infection | [facility] | + + + + | 2016-11-01 00:00 | Urinary tract infection | [facility] | + + + + | 2016-11-01 00:00 | Urinary tract infection | [facility] | + + + + | 2017-12-23 00:00 | Overactive bladder | [facility] | + + + + | 2017-12-23 00:00 | Overactive bladder | [facility] | + + + + | 2017-12-23 00:00 | Overactive bladder | [facility] | + + + + | 2017-12-23 00:00 | Microscopic hematuria | [facility] | + + + + | 2017-12-23 00:00 | Microscopic hematuria | [facility] | + + + + | 2017-12-23 00:00 | Microscopic hematuria | [facility] | + + + + | 2019-03-24 00:00 | Right calf pain | [facility] | + + + + | 2019-03-24 00:00 | Right calf pain | [facility] | + + + + | 2019-03-24 00:00 | Right calf pain | [facility] | + + + + | 2020-07-15 00:00 | Contusion of chest wall | [facility] | + + + + | 2020-07-15 00:00 | Contusion of chest wall | [facility] | + + + + | 2020-07-15 00:00 | Contusion of chest wall | [facility] | + + + + | 2021-03-02 00:00 | Pneumonia | [facility] | + + + + | 2021-03-02 00:00 | Pneumonia | [facility] | + + + + | 2021-03-02 00:00 | Pneumonia | [facility] | + + + + | 2021-09-22 00:00 | Contusion of rib on right | [facility] | | | side | | + + + + | 2021-09-22 00:00 | Contusion of rib on right | [facility] | | | side | | + + + + | 2021-09-22 00:00 | Contusion of rib on right | [facility] | | | side | | + + + + | 2021-09-22 15:56 | HYPOTHYROIDISM, | [facility] | | | UNSPECIFIED | | + + + + | 2021-09-22 15:56 | SLEEP APNEA, UNSPECIFIED | [facility] | + + + + | 2021-09-22 15:56 | Essential (primary) | [facility] | | | hypertension | | + + + + | 2021-09-22 15:56 | UNSPECIFIED ATRIAL | [facility] | | | FIBRILLATION | | + + + + | 2021-09-22 15:56 | SHORTNESS OF BREATH | [facility] | + + + + | 2021-09-22 15:56 | CONTUSION OF RIGHT FRONT | [facility] | | | WALL OF THORAX, INITIAL E | | + + + + | 2021-09-22 15:56 | FALL ON SAME LEVEL, | [facility] | | | UNSPECIFIED, INITIAL | | | | ENCOUNTER | | + + + + | 2021-09-22 15:56 | 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 | [facility] | | | ANTICOAGULANTS | | + + + + | 2021-09-22 15:56 | 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 | [facility] | | | SYSTEMIC STEROIDS | | + + + + | 2021-09-22 15:56 | OTHER RETIREMENT (CURRENT) | [facility] | | | DRUG THERAPY | | + + + + | 2021-09-22 15:56 | ALLERGY STATUS TO | [facility] | | | ANALGESIC AGENT STATUS | | + + + + | 2021-09-22 15:56 | ALLERGY STATUS TO OTH | [facility] | | | DRUG/MEDS/BIOL SUBST STATUS | | | | | | + + + + | 2021-10-26 00:00 | Laceration | [facility] | + + + + | 2021-10-26 00:00 | Laceration | [facility] | + + + + | 2021-10-26 00:00 | Laceration | [facility] | + + + + | 2021-11-06 00:00 | Encounter for medical | [facility] | | | screening examination | | + + + + | 2021-11-06 00:00 | Encounter for medical | [facility] | | | screening examination | | + + + + | 2021-11-06 00:00 | Encounter for medical | [facility] | | | screening examination | | + + + + | 2021-11-20 00:00 | Fall | [facility] | + + + + | 2021-11-20 00:00 | Fall | [facility] | + + + + | 2021-11-20 00:00 | Fall | [facility] | + + + + | 2021-11-20 00:00 | On warfarin therapy | [facility] | + + + + | 2021-11-20 00:00 | On warfarin therapy | [facility] | + + + + | 2021-11-20 00:00 | On warfarin therapy | [facility] | + + + + | 2021-11-20 07:35 | Hypothyroidism, | [facility] | | | unspecified [facility] | + + + + | 2021-11-20 07:35 | Sleep apnea, unspecified | [facility] | | | [facility] | + + + + | 2021-11-20 07:35 | Essential (primary) | [facility] | | | hypertension | [facility] | + + + + | 2021-11-20 07:35 | Unspecified atrial | [facility] | | | fibrillation | [facility] | + + + + | 2021-11-20 07:35 | Chest pain, unspecified | [facility] | | | [facility] | + + + + | 2021-11-20 07:35 | Contusion of unspecified | [facility] | | | front wall of thorax, | [facility] | | | initial encounter | | + + + + | 2021-11-20 07:35 | Fall on same level from | [facility] | | | slipping, tripping and | [facility] | | | stumbling with subsequent | | | | striking against other | | | | object, initial encounter | | + + + + | 2021-11-20 07:35 | Civilian activity done for | [facility] | | | income or pay | [facility] | + + + + | 2021-11-20 07:35 | 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 | [facility] | | | anticoagulants | [facility] | + + + + | 2021-11-20 07:35 | [facility] (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 of | [facility] | | | systemic steroids | [facility] | + + + + | 2021-11-20 07:35 | Other shelter (current) | [facility] | | | drug therapy | [facility] | + + + + | 2021-11-20 07:35 | Allergy status to | [facility] | | | analgesic agent | [facility] | + + + + | 2021-11-20 07:35 | Allergy status to other | [facility] | | | drugs, medicaments and | [facility] | | | biological substances | | + + + + | 2021-12-26 14:52 | UNSPECIFIED ATRIAL | [facility] | | | FIBRILLATION | | + + + + | 2021-12-26 14:52 | ENCOUNTER FOR THERAPEUTIC | [facility] | | | DRUG LEVEL MONITORING | | + + + + | 2021-12-26 14:52 | RETIREMENT (CURRENT) USE OF | [facility] | | | ANTICOAGULANTS | | + + + + | 2022-01-16 14:53 | UNSPECIFIED ATRIAL | [facility] | | | FIBRILLATION | | + + + + | 2022-01-16 14:53 | ENCOUNTER FOR THERAPEUTIC | [facility] | | | DRUG LEVEL MONITORING | | + + + + | 2022-02-13 14:30 | UNSPECIFIED ATRIAL | [facility] | | | FIBRILLATION | | + + + + | 2022-02-13 14:30 | ENCOUNTER FOR THERAPEUTIC | [facility] | | | DRUG LEVEL MONITORING | | + + + + | 2022-05-08 14:38 | UNSPECIFIED ATRIAL | [facility] | | | FIBRILLATION | | + + + + | 2022-05-08 14:38 | ENCOUNTER FOR THERAPEUTIC | [facility] | | | DRUG LEVEL MONITORING | | + + + + | 2022-05-08 14:38 | RETIREMENT (CURRENT) USE OF | [facility] | | | ANTICOAGULANTS | | + + + + | 2022-06-22 14:08 | ENCNTR SCREEN MAMMOGRAM | [facility] | | | FOR MALIGNANT NEOPLASM OF | | | | BREAST | | + + + + | 2022-06-26 14:47 | UNSPECIFIED ATRIAL | [facility] | | | FIBRILLATION | | + + + + | 2022-06-26 14:47 | ENCOUNTER FOR THERAPEUTIC | [facility] | | | DRUG LEVEL MONITORING | | + + + + | 2022-08-21 10:09 | UNSPECIFIED ATRIAL | [facility] | | | FIBRILLATION | | + + + + | 2022-08-21 10:09 | ENCOUNTER FOR THERAPEUTIC | [facility] | | | DRUG LEVEL MONITORING | | + + + + | 2022-09-09 00:00 | Cerebrovascular accident | [facility] | | | (CVA) | | + + + + | 2022-09-09 00:00 | Cerebrovascular accident | [facility] | | | (CVA) | | + + + + | 2022-09-09 00:00 | Cerebrovascular accident | [facility] | | | (CVA) | | + + + + | 2022-09-09 12:04 | HYPOTHYROIDISM, | [facility] | | | UNSPECIFIED | | + + + + | 2022-09-09 12:04 | HYPERLIPIDEMIA, | [facility] | | | UNSPECIFIED | | + + + + | 2022-09-09 12:04 | HEMIPLEGIA, UNSPECIFIED | [facility] | | | AFFECTING RIGHT DOMINANT S | | + + + + | 2022-09-09 12:04 | UNSPECIFIED ATRIAL | [facility] | | | FIBRILLATION | | + + + + | 2022-09-09 12:04 | OTHER CEREB INFRC DUE TO | [facility]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 | | | | ARTERY | | + + + + | 2022-09-09 12:04 | ALLERGY STATUS TO | [facility] | | | SULFONAMIDES STATUS | | + + + + | 2022-09-09 12:04 | ALLERGY STATUS TO NARCOTIC | [facility] | | | AGENT STATUS | | + + + + | 2022-09-09 12:04 | ALLERGY STATUS TO OTH | [facility] | | | DRUG/MEDS/BIOL SUBST STATUS | | | | | | + + + + | 2022-09-12 00:00 | Colitis | [facility] | + + + + | 2022-09-12 00:00 | Colitis | [facility] | + + + + | 2022-09-12 00:00 | Colitis | [facility] | + + + + | 2022-09-12 12:55 | HYPOTHYROIDISM, | [facility] | | | UNSPECIFIED | | + + + + | 2022-09-12 12:55 | SLEEP APNEA, UNSPECIFIED | [facility] | + + + + | 2022-09-12 12:55 | Essential (primary) | [facility] | | | hypertension | | + + + + | 2022-09-12 12:55 | UNSPECIFIED ATRIAL | [facility] | | | FIBRILLATION | | + + + + | 2022-09-12 12:55 | NONINFECTIVE | [facility] | | | GASTROENTERITIS AND | | | | COLITIS, UNSPECIF | | + + + + | 2022-09-12 12:55 | HEMORRHAGE OF ANUS AND | [facility] | | | RECTUM | | + + + + | 2022-09-12 12:55 | 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 | [facility] | | | ANTICOAGULANTS | | + + + + | 2022-09-12 12:55 | OTHER BUSINESS CONTINUITY CONSULTANT (CURRENT) | [facility] | | | DRUG THERAPY | | + + + + | 2022-09-12 12:55 | PRSNL HX OF TIA (TIA), AND | [facility] | | | 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 | | + + + + | 2022-09-12 12:55 | ALLERGY STATUS TO | [facility] | | | SULFONAMIDES STATUS | | + + + + | 2022-09-12 12:55 | ALLERGY STATUS TO | [facility] | | | ANALGESIC AGENT STATUS | | + + + + | 2022-09-12 12:55 | ALLERGY STATUS TO OTH | [facility] | | | DRUG/MEDS/BIOL SUBST STATUS | | | | | | + + + + | 2022-09-15 00:00 | Alteration of sensation as | [facility] | | | late effect of | | | | cerebrovascular accident | | | | (CVA) | | + + + + | 2022-09-15 00:00 | Alteration of sensation as | [facility] [facility] | | | late effect of | | | | cerebrovascular accident | | | | (CVA) | | + + + + | 2022-09-15 20:06 | HYPOTHYROIDISM, | [facility] | | | UNSPECIFIED | | + + + + | 2022-09-15 20:06 | SLEEP APNEA, UNSPECIFIED | [facility] | + + + + | 2022-09-15 20:06 | Essential (primary) | [facility] | | | hypertension | | + + + + | 2022-09-15 20:06 | UNSPECIFIED ATRIAL | [facility] | | | FIBRILLATION | | + + + + | 2022-09-15 20:06 | NONINFECTIVE | [facility] | | | GASTROENTERITIS AND | | | | COLITIS, UNSPECIF | | + + + + | 2022-09-15 20:06 | LOWER ABDOMINAL PAIN, | [facility] | | | UNSPECIFIED | | + + + + | 2022-09-15 20:06 | 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 | [facility] | | | ANTICOAGULANTS | | + + + + | 2022-09-15 20:06 | OTHER RETIREMENT (CURRENT) | [facility] | | | DRUG THERAPY | | + + + + | 2022-09-15 20:06 | PRSNL HX OF TIA (TIA), AND | [facility] | | | 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 | | + + + + | 2022-09-15 20:06 | ALLERGY STATUS TO OTHER | [facility] | | | ANTIBIOTIC AGENTS STATUS | | + + + + | 2022-09-15 20:06 | ALLERGY STATUS TO | [facility] | | | SULFONAMIDES STATUS | | + + + + | 2022-09-15 20:06 | ALLERGY STATUS TO OTH | [facility] | | | DRUG/MEDS/BIOL SUBST STATUS | | | | | | + + + + | 2022-09-18 10:35 | UNSPECIFIED ATRIAL | [facility] | | | FIBRILLATION | | + + + + | 2022-09-18 10:35 | ENCOUNTER FOR THERAPEUTIC | [facility] | | | DRUG LEVEL MONITORING | | + + + + | 2022-09-18 10:35 | RETIREMENT (CURRENT) USE OF | [facility] | | | ANTICOAGULANTS | | + + + + | 2022-10-02 11:30 | UNSPECIFIED ATRIAL | [facility] | | | FIBRILLATION | | + + + + | 2022-10-02 11:30 | ENCOUNTER FOR THERAPEUTIC | [facility] | | | DRUG LEVEL MONITORING | | + + + + | 2022-10-02 11:30 | RETIREMENT (CURRENT) USE OF | [facility] | | | ANTICOAGULANTS | | + + + + | 2022-10-04 08:15 | OTHER LACUNAR SYNDROMES | [facility] | + + + + | 2022-10-04 08:19 | OTHER LACUNAR SYNDROMES | [facility] | + + + + | 2022-10-04 08:19 | UNSPECIFIED SEQUELAE OF | [facility] | | | CEREBRAL INFARCTION | | + + + + | 2022-10-16 11:00 | ENCOUNTER FOR THERAPEUTIC | [facility] | | | DRUG LEVEL MONITORING | | + + + + | 2022-10-16 11:00 | 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 | [facility] | | | ANTICOAGULANTS | | + + + + | 2022-10-23 14:43 | OTHER LACUNAR SYNDROMES | [facility] | + + + + | 2022-10-23 14:44 | OTHER LACUNAR SYNDROMES | [facility] | + + + + | 2022-10-30 11:17 | UNSPECIFIED ATRIAL | [facility] | | | FIBRILLATION | | + + + + | 2022-10-30 11:17 | ENCOUNTER FOR THERAPEUTIC | [facility] | | | DRUG LEVEL MONITORING | | + + + + | 2022-11-13 11:29 | PAROXYSMAL ATRIAL | [facility] | | | FIBRILLATION | | + + + + | 2022-11-13 11:29 | ENCOUNTER FOR THERAPEUTIC | [facility] | | | DRUG LEVEL MONITORING | | + + + + | 2022-11-13 11:29 | RETIREMENT (CURRENT) USE OF | [facility] | | | ANTICOAGULANTS | | + + + + | 2022-11-21 07:23 | OTHER LACUNAR SYNDROMES | [facility] | + + + + | 2022-11-21 07:39 | OTHER LACUNAR SYNDROMES | [facility] | + + + + | 2022-11-22 00:00 | Syncope | [facility] | + + + + | 2022-11-22 00:00 | Syncope | [facility] | + + + + | 2022-11-22 00:00 | Contusion of elbow | [facility] | + + + + | 2022-11-22 00:00 | Contusion of elbow | [facility] | + + + + | 2022-11-22 00:00 | Contusion of wrist | [facility] | + + + + | 2022-11-22 00:00 | Contusion of wrist | [facility] | + + + + | 2022-11-22 00:00 | Contusion of right knee | [facility] | + + + + | 2022-11-22 00:00 | Contusion of right knee | [facility] | + + + + | 2022-11-22 13:18 | Essential (primary) | [facility] | | | hypertension | | + + + + | 2022-11-22 13:18 | UNSPECIFIED ATRIAL | [facility] | | | FIBRILLATION | | + + + + | 2022-11-22 13:18 | Syncope and collapse | [facility] | + + + + | 2022-11-22 13:18 | CONTUSION OF LEFT ELBOW, | [facility] | | | INITIAL ENCOUNTER | | + + + + | 2022-11-22 13:18 | CONTUSION OF RIGHT WRIST, | [facility] | | | INITIAL ENCOUNTER | | + + + + | 2022-11-22 13:18 | CONTUSION OF RIGHT KNEE, | [facility] | | | INITIAL ENCOUNTER | | + + + + | 2022-11-22 13:18 | UNSPECIFIED FALL, INITIAL | [facility] | | | ENCOUNTER | | + + + + | 2022-11-22 13:18 | 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 | [facility] | | | ANTICOAGULANTS | | + + + + | 2022-11-22 13:18 | OTHER RETIREMENT (CURRENT) | [facility] | | | DRUG THERAPY | | + + + + | 2022-11-22 13:18 | ALLERGY STATUS TO OTHER | [facility] | | | ANTIBIOTIC AGENTS STATUS | | + + + + | 2022-11-22 13:18 | ALLERGY STATUS TO | [facility] | | | SULFONAMIDES STATUS | | + + + + | 2022-11-22 13:18 | ALLERGY STATUS TO OTH | [facility] | | | DRUG/MEDS/BIOL SUBST STATUS | | | | | | + + + + | 2022-12-04 11:06 | PAROXYSMAL ATRIAL | [facility] | | | FIBRILLATION | | + + + + | 2022-12-04 11:06 | ENCOUNTER FOR THERAPEUTIC | [facility] | | | DRUG LEVEL MONITORING | | + + + + | 2022-12-04 11:06 | 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 | [facility] | | | ANTICOAGULANTS | | + + + + | 2022-12-21 00:00 | Allergic conjunctivitis | [facility] | + + + + | 2022-12-21 09:44 | OTHER LACUNAR SYNDROMES | [facility] | + + + + | 2022-12-21 09:44 | PAROXYSMAL ATRIAL | [facility] | | | FIBRILLATION | | + + + + | 2022-12-21 11:38 | ACUTE ATOPIC | [facility] | | | CONJUNCTIVITIS, BILATERAL | | + + + + | 2022-12-21 11:38 | UNSPECIFIED DISORDER OF | [facility] | | | EYE AND ADNEXA | | + + + + | 2022-12-21 11:38 | Essential (primary) | [facility] | | | hypertension | | + + + + | 2022-12-21 11:38 | 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 | [facility] | | | ANTITHROMBOTICS/ANTIPLA | | + + + + | 2022-12-21 11:38 | RETIREMENT (CURRENT) USE OF | [facility] | | | ASPIRIN | | + + + + | 2022-12-21 11:38 | HORMONE REPLACEMENT | [facility] | | | THERAPY | | + + + + | 2022-12-21 11:38 | OTHER BUSINESS CONTINUITY CONSULTANT (CURRENT) | [facility] | | | DRUG THERAPY | | + + + + | 2022-12-21 11:38 | ALLERGY STATUS TO | [facility] | | | SULFONAMIDES STATUS | | + + + + | 2022-12-21 11:38 | ALLERGY STATUS TO | [facility] | | | ANALGESIC AGENT STATUS | | + + + + | 2022-12-21 11:38 | ALLERGY STATUS TO OTH | [facility] | | | DRUG/MEDS/BIOL SUBST STATUS | | | | | | + + + + | 2022-12-21 11:38 | 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 Results/Labs +--------+--------+ +---------+--------+---------+ | test | date | facility | value | unit | notes | +--------+--------+ +---------+--------+---------+ + + | Result panel 1 | + + + + + +-------+ + + | | 2022-09-09 | [facility] | 100 | (missing) | (missing) | | (unavailable | 12:12:08 | [facility] | | | | + + + +-------+ + + + + | Result panel 2 | + + + + + +-------+ + + | | 2022-09-09 | [facility] | 100 | (missing) | (missing) | | (unavailable | 12:12:08 | [facility] | | | | + + + +-------+ + + + + | Result panel 3 | + + + + + +-------+ + + | | 2022-09-09 | [facility] | 100 | (missing) | (missing) | | (unavailable | 12:12:08 | [facility] | | | | + + + +-------+ + + + + | Result panel 4 | + + + + + +--------+ + + | | 2022-09-09 | [facility] | 35.5 | (missing) | (missing) | | (unavailable | 12:15:08 | [facility] | | | | + + + +--------+ + + + + | Result panel 5 | + + + + + +--------+ + + | | 2022-09-09 | [facility] | 13.3 | (missing) | (missing) | | (unavailable | 12:15:08 | [facility] | | | | + + + +--------+ + + + + | Result panel 6 | + + + + + +--------+ + + | | 2022-09-09 | [facility] | 13.3 | (missing) | (missing) | | (unavailable | 12:15:08 | [facility] | | | | + + + +--------+ + + + + | Result panel 7 | + + + + + +--------+ + + | | 2022-09-09 | [facility] | 13.3 | (missing) | (missing) | | (unavailable | 12:15:08 | [facility] | | | | + + + +--------+ + + + + | Result panel 8 | + + + + + + + + + | | 2022-09-09 | [facility] | NEGATIVE | (missing) | (missing) | | (unavailable | 12:31:08 | [facility] | | | | + + + + + + + + + | Result panel 9 | + + + + + + + + + | | 2022-09-09 | [facility] | NEGATIVE | (missing) | (missing) | | (unavailable | 12:31:08 | [facility] | | | | + + + + + + + + + | Result panel 10 | + + + + + + + + + | | 2022-09-09 | [facility] | NEGATIVE | (missing) | (missing) | | (unavailable | 12:31:08 | [facility] | | | | + + + + + + + + + | Result panel 11 | + + + + + + + + + | | 2022-09-09 | [facility] | NEGATIVE | (missing) | (missing) | | (unavailable | 12:31:08 | [facility] | | | | + + + + + + + + + | Result panel 12 | + + + + + + + + + | | 2022-09-09 | [facility] | NEGATIVE | (missing) | (missing) | | (unavailable | 12:31:08 | [facility] | | | | + + + + + + + + + | Result panel 13 | + + + + + + + + + | | 2022-09-09 | [facility] | NEGATIVE | (missing) | (missing) | | (unavailable | 12:31:08 | [facility] | | | | + + + + + + + + + | Result panel 14 | + + + + + + + + + | | 2022-09-09 | [facility] | NEGATIVE | (missing) | (missing) | | (unavailable | 12:31:08 | [facility] | | | | + + + + + + + + + | Result panel 15 | + + + + + + + + + | | 2022-09-09 | [facility] | NEGATIVE | (missing) | (missing) | | (unavailable | 12:31:08 | [facility] | | | | + + + + + + + + + | Result panel 16 | + + + + + + + + + | | 2022-09-09 | [facility] | NEGATIVE | (missing) | (missing) | | (unavailable | 12:31:08 | [facility] | | | | + + + + + + + + + | Result panel 17 | + + + + + + + + + | | 2022-09-09 | [facility] | NEGATIVE | (missing) | (missing) | | (unavailable | 12:31:08 | [facility] | | | | + + + + + + + + + | Result panel 18 | + + + + + + + + + | | 2022-09-09 | [facility] | NEGATIVE | (missing) | (missing) | | (unavailable | 12:31:08 | [facility] | | | | + + + + + + + + + | Result panel 19 | + + + + + + + + + | | 2022-09-09 | [facility] | NEGATIVE | (missing) | (missing) | | (unavailable | 12:31:08 | [facility] | | | | + + + + + + + + + | Result panel 20 | + + + + + + + + + | | 2022-09-10 | [facility] | 178.00 | (missing) | (missing) | | (unavailable | 05:50:08 | [facility] | | | | + + + + + + + + + | Result panel 21 | + + + + + +-------+---------+ + | | 2022-09-10 | [facility] | 154 | mg/dL | (missing) | | (unavailable | 05:50:08 | [facility] | | | | + + + +-------+---------+ + + + | Result panel 22 | + + + + + +-------+ + + | | 2022-09-10 | [facility] | 3.4 | (missing) | (missing) | | (unavailable | 05:50:08 | [facility] | | | | + + + +-------+ + + + + | Result panel 23 | + + + + + +------+ + + | | 2022-09-10 | [facility] | 24 | (missing) | (missing) | | (unavailable | 05:50:08 | [facility] | | | | + + + +------+ + + + + | Result panel 24 | + + + + + +-------+ + + | | 2022-09-10 | [facility] | 134 | (missing) | (missing) | | (unavailable | 05:50:08 | [facility] | | | | + + + +-------+ + + + + | Result panel 25 | + + + + + +-------+ + + | | 2022-09-10 | [facility] | 7.2 | (missing) | (missing) | | (unavailable | 05:50:08 | [facility] | | | | + + + +-------+ + + + + | Result panel 26 | + + + + + +-------+ + + | | 2022-09-10 | [facility] | 3.4 | (missing) | (missing) | | (unavailable | 05:50:08 | [facility] | | | | + + + +-------+ + + + + | Result panel 27 | + + + + + +-------+ + + | | 2022-09-10 | [facility] | 3.8 | (missing) | (missing) | | (unavailable | 05:50:08 | [facility] | | | | + + + +-------+ + + + + | Result panel 28 | + + + + + +--------+ + + | | 2022-09-10 | [facility] | 0.89 | (missing) | (missing) | | (unavailable | 05:50:08 | [facility] | | | | + + + +--------+ + + + + | Result panel 29 | + + + + + +-------+ + + | | 2022-09-10 | [facility] | 0.6 | (missing) | (missing) | | (unavailable | 05:50:08 | [facility] | | | | + + + +-------+ + + + + | Result panel 30 | + + + + + +------+ + + | | 2022-09-10 | [facility] | 26 | (missing) | (missing) | | (unavailable | 05:50:08 | [facility] | | | | + + + +------+ + + + + | Result panel 31 | + + + + + +------+ + + | | 2022-09-10 | [facility] | 27 | (missing) | (missing) | | (unavailable | 05:50:08 | [facility] | | | | + + + +------+ + + + + | Result panel 32 | + + + + + +------+ + + | | 2022-09-10 | [facility] | 81 | (missing) | (missing) | | (unavailable | 05:50:08 | [facility] | | | | + + + +------+ + + + + | Result panel 33 | + + + + + +-------+ + + | | 2022-09-10 | [facility] | 6.0 | (missing) | (missing) | | (unavailable | 05:50:08 | [facility] | | | | + + + +-------+ + + + + | Result panel 34 | + + + + + +-------+---------+ + | | 2022-09-10 | [facility] | 3.6 | mg/dL | (missing) | | (unavailable | 05:50:08 | [facility] | | | | + + + +-------+---------+ + + + | Result panel 35 | + + + + + +-------+---------+ + | | 2022-09-10 | [facility] | 2.2 | mg/dL | (missing) | | (unavailable | 05:50:08 | [facility] | | | | + + + +-------+---------+ + + + | Result panel 36 | + + + + + +-------+---------+ + | | 2022-09-10 | [facility] | 252 | mg/dL | (missing) | | (unavailable | 05:50:08 | [facility] | | | | + + + +-------+---------+ + + + | Result panel 37 | + + + + + +------+ + + | | 2022-09-10 | [facility] | 74 | (missing) | (missing) | | (unavailable | 05:50:08 | [facility] | | | | + + + +------+ + + + + | Result panel 38 | + + + + + + + + + | | 2022-09-10 | [facility] | 178.00 | (missing) | (missing) | | (unavailable | 05:50:08 | [facility] | | | | + + + + + + + + + | Result panel 39 | + + + + + +-------+---------+ + | | 2022-09-10 | [facility] | 154 | mg/dL | (missing) | | (unavailable | 05:50:08 | [facility] | | | | + + + +-------+---------+ + + + | Result panel 40 | + + + + + +-------+ + + | | 2022-09-10 | [facility] | 3.4 | (missing) | (missing) | | (unavailable | 05:50:08 | [facility] | | | | + + + +-------+ + + + + | Result panel 41 | + + + + + +------+ + + | | 2022-09-10 | [facility] | 24 | (missing) | (missing) | | (unavailable | 05:50:08 | [facility] | | | | + + + +------+ + + + + | Result panel 42 | + + + + + +-------+ + + | | 2022-09-10 | [facility] | 134 | (missing) | (missing) | | (unavailable | 05:50:08 | [facility] | | | | + + + +-------+ + + + + | Result panel 43 | + + + + + +-------+ + + | | 2022-09-10 | [facility] | 6.0 | (missing) | (missing) | | (unavailable | 05:50:08 | [facility] | | | | + + + +-------+ + + + + | Result panel 44 | + + + + + +-------+---------+ + | | 2022-09-10 | [facility] | 3.6 | mg/dL | (missing) | | (unavailable | 05:50:08 | [facility] | | | | + + + +-------+---------+ + + + | Result panel 45 | + + + + + +-------+---------+ + | | 2022-09-10 | [facility] | 2.2 | mg/dL | (missing) | | (unavailable | 05:50:08 | [facility] | | | | + + + +-------+---------+ + + + | Result panel 46 | + + + + + +-------+---------+ + | | 2022-09-10 | [facility] | 252 | mg/dL | (missing) | | (unavailable | 05:50:08 | [facility] | | | | + + + +-------+---------+ + + + | Result panel 47 | + + + + + +------+ + + | | 2022-09-10 | [facility] | 74 | (missing) | (missing) | | (unavailable | 05:50:08 | [facility] | | | | + + + +------+ + + + + | Result panel 48 | + + + + + + + + + | | 2022-09-10 | [facility] | 178.00 | (missing) | (missing) | | (unavailable | 05:50:08 | [facility] | | | | + + + + + + + + + | Result panel 49 | + + + + + +-------+---------+ + | | 2022-09-10 | [facility] | 154 | mg/dL | (missing) | | (unavailable | 05:50:08 | [facility] | | | | + + + +-------+---------+ + + + | Result panel 50 | + + + + + +-------+ + + | | 2022-09-10 | [facility] | 3.4 | (missing) | (missing) | | (unavailable | 05:50:08 | [facility] | | | | + + + +-------+ + + + + | Result panel 51 | + + + + + +------+ + + | | 2022-09-10 | [facility] | 24 | (missing) | (missing) | | (unavailable | 05:50:08 | [facility] | | | | + + + +------+ + + + + | Result panel 52 | + + + + + +-------+ + + | | 2022-09-10 | [facility] | 134 | (missing) | (missing) | | (unavailable | 05:50:08 | [facility] | | | | + + + +-------+ + + + + | Result panel 53 | + + + + + +-------+ + + | | 2022-09-10 | [facility] | 6.0 | (missing) | (missing) | | (unavailable | 05:50:08 | [facility] | | | | + + + +-------+ + + + + | Result panel 54 | + + + + + +-------+ + + | | 2022-09-10 | [facility] | 7.2 | (missing) | (missing) | | (unavailable | 05:50:08 | [facility] | | | | + + + +-------+ + + + + | Result panel 55 | + + + + + +--------+ + + | | 2022-09-10 | [facility] | 4.30 | (missing) | (missing) | | (unavailable | 05:50:08 | [facility] | | | | + + + +--------+ + + + + | Result panel 56 | + + + + + +--------+ + + | | 2022-09-10 | [facility] | 12.7 | (missing) | (missing) | | (unavailable | 05:50:08 | [facility] | | | | + + + +--------+ + + + + | Result panel 57 | + + + + + +--------+ + + | | 2022-09-10 | [facility] | 39.3 | (missing) | (missing) | | (unavailable | 05:50:08 [facility] | | | | + + + +--------+ + + + + | Result panel 58 | + + + + + +--------+ + + | | 2022-09-10 | [facility] | 91.5 | (missing) | (missing) | | (unavailable | 05:50:08 | [facility] | | | | + + + +--------+ + + + + | Result panel 59 | + + + + + +--------+ + + | | 2022-09-10 | [facility] | 29.5 | (missing) | (missing) | | (unavailable | 05:50:08 | [facility] | | | | + + + +--------+ + + + + | Result panel 60 | + + + + + +--------+ + + | | 2022-09-10 | [facility] | 32.2 | (missing) | (missing) | | (unavailable | 05:50:08 | [facility] | | | | + + + +--------+ + + + + | Result panel 61 | + + + + + +--------+ + + | | 2022-09-10 | [facility] | 14.4 | (missing) | (missing) | | (unavailable | 05:50:08 | [facility] | | | | + + + +--------+ + + + + | Result panel 62 | + + + + + +-------+ + + | | 2022-09-10 | [facility] | 274 | (missing) | (missing) | | (unavailable | 05:50:08 | [facility] | | | | + + + +-------+ + + + + | Result panel 63 | + + + + + +--------+ + + | | 2022-09-10 | [facility] | 55.8 | (missing) | (missing) | | (unavailable | 05:50:08 | [facility] | | | | + + + +--------+ + + + + | Result panel 64 | + + + + + +--------+ + + | | 2022-09-10 | [facility] | 32.7 | (missing) | (missing) | | (unavailable | 05:50:08 | [facility] | | | | + + + +--------+ + + + + | Result panel 65 | + + + + + +-------+ + + | | 2022-09-10 | [facility] | 8.8 | (missing) | (missing) | | (unavailable | 05:50:08 | [facility] | | | | + + + +-------+ + + + + | Result panel 66 | + + + + + +-------+ + + | | 2022-09-10 | [facility] | 1.9 | (missing) | (missing) | | (unavailable | 05:50:08 | [facility] | | | | + + + +-------+ + + + + | Result panel 67 | + + + + + +-------+ + + | | 2022-09-10 | [facility] | 0.8 | (missing) | (missing) | | (unavailable | 05:50:08 | [facility] | | | | + + + +-------+ + + + + | Result panel 68 | + + + + + +--------+ + + | | 2022-09-10 | [facility] | 19.6 | (missing) | (missing) | | (unavailable | 05:50:08 | [facility] | | | | + + + +--------+ + + + + | Result panel 69 | + + + + + +--------+ + + | | 2022-09-10 | [facility] | 1.73 | (missing) | (missing) | | (unavailable | 05:50:08 | [facility] | | | | + + + +--------+ + + + + | Result panel 70 | + + + + + +------+---------+ + | | 2022-09-10 | [facility] | 97 | mg/dL | (missing) | | (unavailable | 05:50:08 | [facility] | | | | + + + +------+---------+ + + + | Result panel 71 | + + + + + +------+---------+ + | | 2022-09-10 | [facility] | 15 | mg/dL | (missing) | | (unavailable | 05:50:08 | [facility] | | | | + + + +------+---------+ + + + | Result panel 72 | + + + + + +--------+---------+ + | | 2022-09-10 | [facility] | 0.69 | mg/dL | (missing) | | (unavailable | 05:50:08 | [facility] | | | | + + + +--------+---------+ + + + | Result panel 73 | + + + + + +------+ + + | | 2022-09-10 | [facility] | 89 | (missing) | (missing) | | (unavailable | 05:50:08 | [facility] | | | | + + + +------+ + + + + | Result panel 74 | + + + + + +---------+ + + | | 2022-09-10 | [facility] | 21.73 | (missing) | (missing) | | (unavailable | 05:50:08 | [facility] | | | | + + + +---------+ + + + + | Result panel 75 | + + + + + +-------+ + + | | 2022-09-10 | [facility] | 141 | (missing) | (missing) | | (unavailable | 05:50:08 | [facility] | | | | + + + +-------+ + + + + | Result panel 76 | + + + + + +-------+ + + | | 2022-09-10 | [facility] | 4.0 | (missing) | (missing) | | (unavailable | 05:50:08 | [facility] | | | | + + + +-------+ + + + + | Result panel 77 | + + + + + +-------+ + + | | 2022-09-10 | [facility] | 105 | (missing) | (missing) | | (unavailable | 05:50:08 | [facility] | | | | + + + +-------+ + + + + | Result panel 78 | + + + + + +------+ + + | | 2022-09-10 | [facility] | 27 | (missing) | (missing) | | (unavailable | 05:50:08 | [facility] | | | | + + + +------+ + + + + | Result panel 79 | + + + + + +--------+ + + | | 2022-09-10 | [facility] | 13.0 | (missing) | (missing) | | (unavailable | 05:50:08 | [facility] | | | | + + + +--------+ + + + + | Result panel 80 | + + + + + +-------+---------+ + | | 2022-09-10 | [facility] | 8.9 | mg/dL | (missing) | | (unavailable | 05:50:08 | [facility] | | | | + + + +-------+---------+ + + + | Result panel 81 | + + + + + +-------+---------+ + | | 2022-09-10 | [facility] | 3.6 | mg/dL | (missing) | | (unavailable | 05:50:08 | [facility] | | | | + + + +-------+---------+ + + + | Result panel 82 | + + + + + +-------+---------+ + | | 2022-09-10 | [facility] | 2.2 | mg/dL | (missing) | | (unavailable | 05:50:08 | [facility] | | | | + + + +-------+---------+ + + + | Result panel 83 | + + + + + +-------+---------+ + | | 2022-09-10 | [facility] | 252 | mg/dL | (missing) | | (unavailable | 05:50:08 | [facility] | | | | + + + +-------+---------+ + + + | Result panel 84 | + + + + + +------+ + + | | 2022-09-10 | [facility] | 74 | (missing) | (missing) | | (unavailable | 05:50:08 | [facility] | | | | + + + +------+ + + + + | Result panel 85 | + + + + + +-------+ + + | | 2022-09-12 | [facility] | 9.3 | (missing) | (missing) | | (unavailable | 13:37:08 | [facility] | | | | + + + +-------+ + + + + | Result panel 86 | + + + + + +--------+ + + | | 2022-09-12 | [facility] | 4.18 | (missing) | (missing) | | (unavailable | 13:37:08 | [facility] | | | | + + + +--------+ + + + + | Result panel 87 | + + + + + +--------+ + + | | 2022-09-12 | [facility] | 12.6 | (missing) | (missing) | | (unavailable | 13:37:08 | [facility] | | | | + + + +--------+ + + + + | Result panel 88 | + + + + + +--------+ + + | | 2022-09-12 | [facility] | 38.4 | (missing) | (missing) | | (unavailable | 13:37:08 | [facility] | | | | + + + +--------+ + + + + | Result panel 89 | + + + + + +--------+ + + | | 2022-09-12 | [facility] | 91.9 | (missing) | (missing) | | (unavailable | 13:37:08 | [facility] | | | | + + + +--------+ + + + + | Result panel 90 | + + + + + +--------+ + + | | 2022-09-12 | [facility] | 30.1 | (missing) | (missing) | | (unavailable | 13:37:08 | [facility] | | | | + + + +--------+ + + + + | Result panel 91 | + + + + + +--------+ + + | | 2022-09-12 | [facility] | 32.8 | (missing) | (missing) | | (unavailable | 13:37:08 | [facility] | | | | + + + +--------+ + + + + | Result panel 92 | + + + + + +--------+ + + | | 2022-09-12 | [facility] | 14.5 | (missing) | (missing) | | (unavailable | 13:37:08 | [facility] | | | | + + + +--------+ + + + + | Result panel 93 | + + + + + +-------+ + + | | 2022-09-12 | [facility] | 313 | (missing) | (missing) | | (unavailable | 13:37:08 | [facility] | | | | + + + +-------+ + + + + | Result panel 94 | + + + + + +--------+ + + | | 2022-09-12 | [facility] | 71.1 | (missing) | (missing) | | (unavailable | 13:37:08 | [facility] | | | | + + + +--------+ + + + + | Result panel 95 | + + + + + +--------+ + + | | 2022-09-12 | [facility] | 20.1 | (missing) | (missing) | | (unavailable | 13:37:08 | [facility] | | | | + + + +--------+ + + + + | Result panel 96 | + + + + + +-------+ + + | | 2022-09-12 | [facility] | 7.2 | (missing) | (missing) | | (unavailable | 13:37:08 | [facility] | | | | + + + +-------+ + + + + | Result panel 97 | + + + + + +-------+ + + | | 2022-09-12 | [facility] | 1.2 | (missing) | (missing) | | (unavailable | 13:37:08 | [facility] | | | | + + + +-------+ + + + + | Result panel 98 | + + + + + +-------+ + + | | 2022-09-12 | [facility] | 0.4 | (missing) | (missing) | | (unavailable | 13:37:08 | [facility] | | | | + + + +-------+ + + + + | Result panel 99 | + + + + + +--------+ + + | | 2022-09-12 | [facility] | 14.7 | (missing) | (missing) | | (unavailable | 14:07:08 | [facility] | | | | + + + +--------+ + + + + | Result panel 100 | + + + + + +--------+ + + | | 2022-09-12 | [facility] | 1.20 | (missing) | (missing) | | (unavailable | 14:07:08 | [facility] | | | | + + + +--------+ + + + + | Result panel 101 | + + + + + +--------+ + + | | 2022-09-12 | [facility] | 26.3 | (missing) | (missing) | | (unavailable | 14:07:08 | [facility] | | | | + + + +--------+ + + + + | Result panel 102 | + + + + + +-------+---------+ + | | 2022-09-12 | [facility] | 102 | mg/dL | (missing) | | (unavailable | 14:07:08 | [facility] | | | | + + + +-------+---------+ + + + | Result panel 103 | + + + + + +------+---------+ + | | 2022-09-12 | [facility] | 19 | mg/dL | (missing) | | (unavailable | 14:07:08 | [facility] | | | | + + + +------+---------+ + + + | Result panel 104 | + + + + + +--------+---------+ + | | 2022-09-12 | [facility] | 0.77 | mg/dL | (missing) | | (unavailable | 14:07:08 | [facility] | | | | + + + +--------+---------+ + + + | Result panel 105 | + + + + + +------+ + + | | 2022-09-12 | [facility] | 79 | (missing) | (missing) | | (unavailable | 14:07:08 | [facility] | | | | + + + +------+ + + + + | Result panel 106 | + + + + + +---------+ + + | | 2022-09-12 | [facility] | 24.67 | (missing) | (missing) | | (unavailable | 14:07:08 | [facility] | | | | + + + +---------+ + + + + | Result panel 107 | + + + + + +-------+ + + | | 2022-09-12 | [facility] | 140 | (missing) | (missing) | | (unavailable | 14:07:08 | [facility] | | | | + + + +-------+ + + + + | Result panel 108 | + + + + + +-------+ + + | | 2022-09-12 | [facility] | 4.1 | (missing) | (missing) | | (unavailable | 14:07:08 | [facility] | | | | + + + +-------+ + + + + | Result panel 109 | + + + + + +-------+ + + | | 2022-09-12 | [facility] | 104 | (missing) | (missing) | | (unavailable | 14:07:08 | [facility] | | | | + + + +-------+ + + + + | Result panel 110 | + + + + + +------+ + + | | 2022-09-12 | [facility] | 28 | (missing) | (missing) | | (unavailable | 14:07:08 | [facility] | | | | + + + +------+ + + + + | Result panel 111 | + + + + + +--------+ + + | | 2022-09-12 | [facility] | 12.1 | (missing) | (missing) | | (unavailable | 14:07:08 | [facility] | | | | + + + +--------+ + + + + | Result panel 112 | + + + + + +-------+---------+ + | | 2022-09-12 | [facility] | 8.8 | mg/dL | (missing) | | (unavailable | 14:07:08 | [facility] | | | | + + + +-------+---------+ + + + | Result panel 113 | + + + + + +-------+ + + | | 2022-09-12 | [facility] | 7.1 | (missing) | (missing) | | (unavailable | 14:07:08 | [facility] | | | | + + + +-------+ + + + + | Result panel 114 | + + + + + +-------+ + + | | 2022-09-12 | [facility] | 3.4 | (missing) | (missing) | | (unavailable | 14:07:08 | [facility] | | | | + + + +-------+ + + + + | Result panel 115 | + + + + + +-------+ + + | | 2022-09-12 | [facility] | 3.7 | (missing) | (missing) | | (unavailable | 14:07:08 | [facility] | | | | + + + +-------+ + + + + | Result panel 116 | + + + + + +--------+ + + | | 2022-09-12 | [facility] | 0.92 | (missing) | (missing) | | (unavailable | 14:07:08 | [facility] | | | | + + + +--------+ + + + + | Result panel 117 | + + + + + +-------+ + + | | 2022-09-12 | [facility] | 0.7 | (missing) | (missing) | | (unavailable | 14:07:08 | [facility] | | | | + + + +-------+ + + + + | Result panel 118 | + + + + + +------+ + + | | 2022-09-12 | [facility] | 23 | (missing) | (missing) | | (unavailable | 14:07:08 | [facility] | | | | + + + +------+ + + + + | Result panel 119 | + + + + + +------+ + + | | 2022-09-12 | [facility] | 24 | (missing) | (missing) | | (unavailable | 14:07:08 | [facility] | | | | + + + +------+ + + + + | Result panel 120 | + + + + + +------+ + + | | 2022-09-12 | [facility] | 77 | (missing) | (missing) | | (unavailable | 14:07:08 | [facility] | | | | + + + +------+ + + + + | Result panel 121 | + + + + + +-----+ + + | | 2022-09-12 | [facility] | A | (missing) | (missing) | | (unavailable | 14:07:08 | [facility] | | | | + + + +-----+ + + + + | Result panel 122 | + + + + + + + + + | | 2022-09-12 | [facility] | POSITIVE | (missing) | (missing) | | (unavailable | 14:07:08 | [facility] | | | | + + + + + + + + + | Result panel 123 | + + + + + + + + + | | 2022-09-12 | [facility] | NEGATIVE | (missing) | (missing) | | (unavailable | 14:07:08 | [facility] | | | | + + + + + + + + + | Result panel 124 | + + + + + + + + + | | 2022-09-12 | [facility] | IN LAB | (missing) | (missing) | | (unavailable | 14::08 | [facility] | | | | + + + + + + + + + | Result panel 125 | + + + + + +--------+ + + | | 2022-09-12 | [facility] | 26.3 | (missing) | (missing) | | (unavailable | 14:07:08 | [facility] | | | | + + + +--------+ + + + + | Result panel 126 | + + + + + +-----+ + + | | 2022-09-12 | [facility] | A | (missing) | (missing) | | (unavailable | 14:07:08 | [facility] | | | | + + + +-----+ + + + + | Result panel 127 | + + + + + + + + + | | 2022-09-12 | [facility] | POSITIVE | (missing) | (missing) | | (unavailable | 14:07:08 | [facility] | | | | + + + + + + + + + | Result panel 128 | + + + + + + + + + | | 2022-09-12 | [facility] | NEGATIVE | (missing) | (missing) | | (unavailable | 14:07:08 | [facility] | | | | + + + + + + + + + | Result panel 129 | + + + + + + + + + | | 2022-09-12 | [facility] | IN LAB | (missing) | (missing) | | (unavailable | 14:07:08 | [facility] | | | | + + + + + + + + + | Result panel 130 | + + + + + + + + + | | 2022-09-12 | [facility] | YELLOW | (missing) | (missing) | | (unavailable | 16:20:08 | [facility] | | | | + + + + + + + + + | Result panel 131 | + + + + + +---------+ + + | | 2022-09-12 | [facility] | CLEAR | (missing) | (missing) | | (unavailable | 16:20:08 | [facility] | | | | + + + +---------+ + + + + | Result panel 132 | + + + + + + + + + | | 2022-09-12 | [facility] | NEGATIVE | (missing) | (missing) | | (unavailable | 16:20:08 | [facility] | | | | + + + + + + + + + | Result panel 133 | + + + + + + + + + | | 2022-09-12 | [facility] | NEGATIVE | (missing) | (missing) | | (unavailable | 16:20:08 | [facility] | | | | + + + + + + + + + | Result panel 134 | + + + + + + + + + | | 2022-09-12 | [facility] | NEGATIVE | (missing) | (missing) | | (unavailable | 16:20:08 | [facility] | | | | + + + + + + + + + | Result panel 135 | + + + + + +---------+ + + | | 2022-09-12 | [facility] | 1.010 | (missing) | (missing) | | (unavailable | 16:20:08 | [facility] | | | | + + + +---------+ + + + + | Result panel 136 | + + + + + + + + + | | 2022-09-12 | [facility] | MODERATE | (missing) | (missing) | | (unavailable | 16:20:08 | [facility] | | | | + + + + + + + + + | Result panel 137 | + + + + + +-------+ + + | | 2022-09-12 | [facility] | 7.5 | (missing) | (missing) | | (unavailable | 16:20:08 | [facility] | | | | + + + +-------+ + + + + | Result panel 138 | + + + + + + + + + | | 2022-09-12 | [facility] | NEGATIVE | (missing) | (missing) | | (unavailable | 16:20:08 | [facility] | | | | + + + + + + + + + | Result panel 139 | + + + + + + + + + | | 2022-09-12 | [facility] | NORMAL | (missing) | (missing) | | (unavailable | 16:20:08 | [facility] | | | | + + + + + + + + + | Result panel 140 | + + + + + + + + + | | 2022-09-12 | [facility] | NEGATIVE | (missing) | (missing) | | (unavailable | 16:20:08 | [facility] | | | | + + + + + + + + + | Result panel 141 | + + + + + + + + + | | 2022-09-12 | [facility] | NEGATIVE | (missing) | (missing) | | (unavailable | 16:20:08 | [facility] | | | | + + + + + + + + + | Result panel 142 | + + + + + +-------+ + + | | 2022-09-12 | [facility] | 4-6 | (missing) | (missing) | | (unavailable | 16:20:08 | [facility] | | | | + + + +-------+ + + + + | Result panel 143 | + + + + + +-------+ + + | | 2022-09-12 | [facility] | 2-3 | (missing) | (missing) | | (unavailable | 16:20:08 | [facility] | | | | + + + +-------+ + + + + | Result panel 144 | + + + + + +-----+ + + | | 2022-09-12 | [facility] | 0 | (missing) | (missing) | | (unavailable | 16:20:08 | [facility] | | | | + + + +-----+ + + + + | Result panel 145 | + + + + + +--------+ + + | | 2022-09-12 | [facility] | RARE | (missing) | (missing) | | (unavailable | 16:20:08 | [facility] | | | | + + + +--------+ + + + + | Result panel 146 | + + + + + +------+ + + | | 2022-09-12 | [facility] | No | (missing) | (missing) | | (unavailable | 16:20:08 | [facility] | | | | + + + +------+ + + + + | Result panel 147 | + + + + + + + + + | | 2022-09-12 | [facility] | CLEAN CATCH | (missing) | (missing) | | (unavailable | 16:20:08 | [facility] | | | | + + + + + + + + + | Result panel 148 | + + + + + +--------+ + + | | 2022-09-12 | [facility] | RARE | (missing) | (missing) | | (unavailable | 16:20:08 | [facility] | | | | + + + +--------+ + + + + | Result panel 149 | + + + + + + + + + | | 2022-09-12 | [facility] | CLEAN CATCH | (missing) | (missing) | | (unavailable | 16:20:08 | [facility] | | | | + + + + + + + + + | Result panel 150 | + + + + + +-------+ + + | | 2022-09-15 | [facility] | 7.3 | (missing) | (missing) | | (unavailable | 20:46:08 | [facility] | | | | + + + +-------+ + + + + | Result panel 151 | + + + + + +--------+ + + | | 2022-09-15 | [facility] | 3.92 | (missing) | (missing) | | (unavailable | 20:46:08 | [facility] | | | | + + + +--------+ + + + + | Result panel 152 | + + + + + +--------+ + + | | 2022-09-15 | [facility] | 11.6 | (missing) | (missing) | | (unavailable | 20:46:08 | [facility] | | | | + + + +--------+ + + + + | Result panel 153 | + + + + + +--------+ + + | | 2022-09-15 | [facility] | 35.9 | (missing) | (missing) | | (unavailable | 20:46:08 | [facility] | | | | + + + +--------+ + + + + | Result panel 154 | + + + + + +--------+ + + | | 2022-09-15 | [facility] | 91.5 | (missing) | (missing) | | (unavailable | 20:46:08 | [facility] | | | | + + + +--------+ + + + + | Result panel 155 | + + + + + +--------+ + + | | 2022-09-15 | [facility] | 29.5 | (missing) | (missing) | | (unavailable | 20:46:08 | [facility] | | | | + + + +--------+ + + + + | Result panel 156 | + + + + + +--------+ + + | | 2022-09-15 | [facility] | 32.3 | (missing) | (missing) | | (unavailable | 20:46:08 | [facility] | | | | + + + +--------+ + + + + | Result panel 157 | + + + + + +--------+ + + | | 2022-09-15 | [facility] | 14.1 | (missing) | (missing) | | (unavailable | 20:46:08 | [facility] | | | | + + + +--------+ + + + + | Result panel 158 | + + + + + +-------+ + + | | 2022-09-15 | [facility] | 271 | (missing) | (missing) | | (unavailable | 20:46:08 | [facility] | | | | + + + +-------+ + + + + | Result panel 159 | + + + + + +--------+ + + | | 2022-09-15 | [facility] | 57.3 | (missing) | (missing) | | (unavailable | 20:46:08 | [facility] | | | | + + + +--------+ + + + + | Result panel 160 | + + + + + +--------+ + + | | 2022-09-15 | [facility] | 30.6 | (missing) | (missing) | | (unavailable | 20:46:08 | [facility] | | | | + + + +--------+ + + + + | Result panel 161 | + + + + + +-------+ + + | | 2022-09-15 | [facility] | 8.8 | (missing) | (missing) | | (unavailable | 20:46:08 | [facility] | | | | + + + +-------+ + + + + | Result panel 162 | + + + + + +-------+ + + | | 2022-09-15 | [facility] | 2.3 | (missing) | (missing) | | (unavailable | 20:46:08 | [facility] | | | | + + + +-------+ + + + + | Result panel 163 | + + + + + +-------+ + + | | 2022-09-15 | [facility] | 1.0 | (missing) | (missing) | | (unavailable | 20:46:08 | [facility] | | | | + + + +-------+ + + + + | Result panel 164 | + + + + + +--------+ + + | | 2022-09-15 | [facility] | 16.3 | (missing) | (missing) | | (unavailable | 20:46:08 | [facility] | | | | + + + +--------+ + + + + | Result panel 165 | + + + + + +--------+ + + | | 2022-09-15 | [facility] | 1.37 | (missing) | (missing) | | (unavailable | 20:46:08 | [facility] | | | | + + + +--------+ + + + + | Result panel 166 | + + + + + +-------+---------+ + | | 2022-09-15 | [facility] | 110 | mg/dL | (missing) | | (unavailable | 20:46:08 | [facility] | | | | + + + +-------+---------+ + + + | Result panel 167 | + + + + + +------+---------+ + | | 2022-09-15 | [facility] | 14 | mg/dL | (missing) | | (unavailable | 20:46:08 | [facility] | | | | + + + +------+---------+ + + + | Result panel 168 | + + + + + +--------+---------+ + | | 2022-09-15 | [facility] | 0.72 | mg/dL | (missing) | | (unavailable | 20:46:08 | [facility] | | | | + + + +--------+---------+ + + + | Result panel 169 | + + + + + +------+ + + | | 2022-09-15 | [facility] | 86 | (missing) | (missing) | | (unavailable | 20:46:08 | [facility] | | | | + + + +------+ + + + + | Result panel 170 | + + + + + +---------+ + + | | 2022-09-15 | [facility] | 19.44 | (missing) | (missing) | | (unavailable | 20:46:08 | [facility] | | | | + + + +---------+ + + + + | Result panel 171 | + + + + + +-------+ + + | | 2022-09-15 | [facility] | 140 | (missing) | (missing) | | (unavailable | 20:46:08 | [facility] | | | | + + + +-------+ + + + + | Result panel 172 | + + + + + +-------+ + + | | 2022-09-15 | [facility] | 4.0 | (missing) | (missing) | | (unavailable | 20:46:08 | [facility] | | | | + + + +-------+ + + + + | Result panel 173 | + + + + + +-------+ + + | | 2022-09-15 | [facility] | 104 | (missing) | (missing) | | (unavailable | 20:46:08 | [facility] | | | | + + + +-------+ + + + + | Result panel 174 | + + + + + +------+ + + | | 2022-09-15 | [facility] | 29 | (missing) | (missing) | | (unavailable | 20:46:08 | [facility] | | | | + + + +------+ + + + + | Result panel 175 | + + + + + +--------+ + + | | 2022-09-15 | [facility] | 11.0 | (missing) | (missing) | | (unavailable | 20:46:08 | [facility] | | | | + + + +--------+ + + + + | Result panel 176 | + + + + + +-------+---------+ + | | 2022-09-15 | [facility] | 8.9 | mg/dL | (missing) | | (unavailable | 20:46:08 | [facility] | | | | + + + +-------+---------+ + + + | Result panel 177 | + + + + + +-------+ + + | | 2022-09-15 | [facility] | 6.8 | (missing) | (missing) | | (unavailable | 20:46:08 | [facility] | | | | + + + +-------+ + + + + | Result panel 178 | + + + + + +-------+ + + | | 2022-09-15 | [facility] | 3.3 | (missing) | (missing) | | (unavailable | 20:46:08 | [facility] | | | | + + + +-------+ + + + + | Result panel 179 | + + + + + +-------+ + + | | 2022-09-15 | [facility] | 3.5 | (missing) | (missing) | | (unavailable | 20:46:08 | [facility] | | | | + + + +-------+ + + + + | Result panel 180 | + + + + + +--------+ + + | | 2022-09-15 | [facility] | 0.94 | (missing) | (missing) | | (unavailable | 20:46:08 | [facility] | | | | + + + +--------+ + + + + | Result panel 181 | + + + + + +-------+ + + | | 2022-09-15 | [facility] | 0.2 | (missing) | (missing) | | (unavailable | 20:46:08 | [facility] | | | | + + + +-------+ + + + + | Result panel 182 | + + + + + +------+ + + | | 2022-09-15 | [facility] | 29 | (missing) | (missing) | | (unavailable | 20:46:08 | [facility] | | | | + + + +------+ + + + + | Result panel 183 | + + + + + +------+ + + | | 2022-09-15 | [facility] | 28 | (missing) | (missing) | | (unavailable | 20:46:08 | [facility] | | | | + + + +------+ + + + + | Result panel 184 | + + + + + +------+ + + | | 2022-09-15 | [facility] | 70 | (missing) | (missing) | | (unavailable | 20:46:08 | [facility] | | | | + + + +------+ + + + + | Result panel 185 | + + + + + + + + + | | 2022-09-15 | [facility] | YELLOW | (missing) | (missing) | | (unavailable | 22:05:08 | [facility] | | | | + + + + + + + + + | Result panel 186 | + + + + + +---------+ + + | | 2022-09-15 | [facility] | CLEAR | (missing) | (missing) | | (unavailable | ::08 | [facility] | | | | + + + +---------+ + + + + | Result panel 187 | + + + + + + + + + | | 2022-09-15 | [facility] | NEGATIVE | (missing) | (missing) | | (unavailable | ::08 | [facility] | | | | + + + + + + + + + | Result panel 188 | + + + + + + + + + | | 2022-09-15 | [facility] | NEGATIVE | (missing) | (missing) | | (unavailable | 22:05:08 | [facility] | | | | + + + + + + + + + | Result panel 189 | + + + + + + + + + | | 2022-09-15 | [facility] | NEGATIVE | (missing) | (missing) | | (unavailable | 22:05:08 | [facility] | | | | + + + + + + + + + | Result panel 190 | + + + + + +---------+ + + | | 2022-09-15 | [facility] | 1.020 | (missing) | (missing) | | (unavailable | 22:05:08 | [facility] | | | | + + + +---------+ + + + + | Result panel 191 | + + + + + + + + + | | 2022-09-15 | [facility] | MODERATE | (missing) | (missing) | | (unavailable | 22:05:08 | [facility] | | | | + + + + + + + + + | Result panel 192 | + + + + + +-------+ + + | | 2022-09-15 | [facility] | 6.0 | (missing) | (missing) | | (unavailable | 22:05:08 | [facility] | | | | + + + +-------+ + + + + | Result panel 193 | + + + + + + + + + | | 2022-09-15 | [facility] | NEGATIVE | (missing) | (missing) | | (unavailable | 22:05:08 | [facility] | | | | + + + + + + + + + | Result panel 194 | + + + + + + + + + | | 2022-09-15 | [facility] | NORMAL | (missing) | (missing) | | (unavailable | 22::08 | [facility] | | | | + + + + + + + + + | Result panel 195 | + + + + + + + + + | | 2022-09-15 | [facility] | NEGATIVE | (missing) | (missing) | | (unavailable | 22:05:08 | [facility] | | | | + + + + + + + + + | Result panel 196 | + + + + + + + + + | | 2022-09-15 | [facility] | NEGATIVE | (missing) | (missing) | | (unavailable | 22:05:08 | [facility] | | | | + + + + + + + + + | Result panel 197 | + + + + + +-------+ + + | | 2022-09-15 | [facility] | 4-6 | (missing) | (missing) | | (unavailable | 22:05:08 | [facility] | | | | + + + +-------+ + + + + | Result panel 198 | + + + + + +-------+ + + | | 2022-09-15 | [facility] | 0-1 | (missing) | (missing) | | (unavailable | 22:05:08 | [facility] | | | | + + + +-------+ + + + + | Result panel 199 | + + + + + +-----+ + + | | 2022-09-15 | [facility] | 0 | (missing) | (missing) | | (unavailable | 22:05:08 | [facility] | | | | + + + +-----+ + + + + | Result panel 200 | + + + + + +------+ + + | | 2022-09-15 | [facility] | No | (missing) | (missing) | | (unavailable | 22:05:08 | [facility] | | | | + + + +------+ + + + + | Result panel 201 | + + + + + +-------+ + + | | 2022-11-22 | [facility] | 7.9 | (missing) | (missing) | | (unavailable | 13:30:07 | [facility] | | | | + + + +-------+ + + + + | Result panel 202 | + + + + + +------+ + + | | 2022-11-22 | [facility] | 58 | (missing) | (missing) | | (unavailable | 13:30:07 | [facility] | | | | + + + +------+ + + + + | Result panel 203 | + + + + + +------+ + + | | 2022-11-22 | [facility] | 40 | (missing) | (missing) | | (unavailable | 13:30:07 | [facility] | | | | + + + +------+ + + + + | Result panel 204 | + + + + + +-----+ + + | | 2022-11-22 | [facility] | 2 | (missing) | (missing) | | (unavailable | 13:30:07 | [facility] | | | | + + + +-----+ + + + + | Result panel 205 | + + + + + + + + + | | 2022-11-22 | [facility] | PRESENT | (missing) | (missing) | | (unavailable | 13:30:07 | [facility] | | | | + + + + + + + + + | Result panel 206 | + + + + + +--------+ + + | | 2022-11-22 | [facility] | 20.9 | (missing) | (missing) | | (unavailable | 13:30:07 | [facility] | | | | + + + +--------+ + + + + | Result panel 207 | + + + + + +--------+ + + | | 2022-11-22 | [facility] | 1.88 | (missing) | (missing) | | (unavailable | 13:30:07 | [facility] | | | | + + + +--------+ + + + + | Result panel 208 | + + + + + +-------+---------+ + | | 2022-11-22 | [facility] | 103 | mg/dL | (missing) | | (unavailable | 13:30:07 | [facility] | | | | + + + +-------+---------+ + + + | Result panel 209 | + + + + + +------+---------+ + | | 2022-11-22 | [facility] | 13 | mg/dL | (missing) | | (unavailable | 13:30:07 | [facility] | | | | + + + +------+---------+ + + + | Result panel 210 | + + + + + +--------+---------+ + | | 2022-11-22 | [facility] | 0.85 | mg/dL | (missing) | | (unavailable | 13:30:07 | [facility] | | | | + + + +--------+---------+ + + + | Result panel 211 | + + + + + +------+ + + | | 2022-11-22 | [facility] | 71 | (missing) | (missing) | | (unavailable | 13:30:07 | [facility] | | | | + + + +------+ + + + + | Result panel 212 | + + + + + +--------+ + + | | 2022-11-22 | [facility] | 4.00 | (missing) | (missing) | | (unavailable | 13:30:07 | [facility] | | | | + + + +--------+ + + + + | Result panel 213 | + + + + + +---------+ + + | | 2022-11-22 | [facility] | 15.29 | (missing) | (missing) | | (unavailable | 13:30:07 | [facility] | | | | + + + +---------+ + + + + | Result panel 214 | + + + + + +-------+ + + | | 2022-11-22 | [facility] | 140 | (missing) | (missing) | | (unavailable | 13:30:07 | [facility] | | [facility] | [facility] | | | | + + + +-------+ + + + + | Result panel 215 | + + + + + +-------+ + + | | 2022-11-22 | [facility] | 4.0 | (missing) | (missing) | | (unavailable | 13:30:07 | [facility] | | | | + + + +-------+ + + + + | Result panel 216 | + + + + + +-------+ + + | | 2022-11-22 | [facility] | 104 | (missing) | (missing) | | (unavailable | 13:30:07 | [facility] | | | | + + + +-------+ + + + + | Result panel 217 | + + + + + +------+ + + | | 2022-11-22 | [facility] | 29 | (missing) | (missing) | | (unavailable | 13:30:07 | [facility] | | | | + + + +------+ + + + + | Result panel 218 | + + + + + +--------+ + + | | 2022-11-22 | [facility] | 11.0 | (missing) | (missing) | | (unavailable | 13:30:07 | [facility] | | | | + + + +--------+ + + + + | Result panel 219 | + + + + + +-------+---------+ + | | 2022-11-22 | [facility] | 8.7 | mg/dL | (missing) | | (unavailable | 13:30:07 | [facility] | | | | + + + +-------+---------+ + + + | Result panel 220 | + + + + + +-------+ + + | | 2022-11-22 | [facility] | 7.5 | (missing) | (missing) | | (unavailable | 13:30:07 | [facility] | | | | + + + +-------+ + + + + | Result panel 221 | + + + + + +-------+ + + | | 2022-11-22 | [facility] | 3.7 | (missing) | (missing) | | (unavailable | 13:30:07 | [facility] | | | | + + + +-------+ + + + + | Result panel 222 | + + + + + +-------+ + + | | 2022-11-22 | [facility] | 3.8 | (missing) | (missing) | | (unavailable | 13:30:07 | [facility] | | | | + + + +-------+ + + + + | Result panel 223 | + + + + + +--------+ + + | | 2022-11-22 | [facility] | 12.1 | (missing) | (missing) | | (unavailable | 13:30:07 | [facility] | | | | + + + +--------+ + + + + | Result panel 224 | + + + + + +--------+ + + | | 2022-11-22 | [facility] | 0.97 | (missing) | (missing) | | (unavailable | 13:30:07 | [facility] | | | | + + + +--------+ + + + + | Result panel 225 | + + + + + +-------+ + + | | 2022-11-22 | [facility] | 0.4 | (missing) | (missing) | | (unavailable | 13:30:07 | [facility] | | | | + + + +-------+ + + + + | Result panel 226 | + + + + + +------+ + + | | 2022-11-22 | [facility] | 26 | (missing) | (missing) | | (unavailable | 13:30:07 | [facility] | | | | + + + +------+ + + + + | Result panel 227 | + + + + + +------+ + + | | 2022-11-22 | [facility] | 25 | (missing) | (missing) | | (unavailable | 13:30:07 | [facility] | | | | + + + +------+ + + + + | Result panel 228 | + + + + + +------+ + + | | 2022-11-22 | [facility] | 73 | (missing) | (missing) | | (unavailable | 13:30:07 | [facility] | | | | + + + +------+ + + + + | Result panel 229 | + + + + + +-------+ + + | | 2022-11-22 | [facility] | 7.9 | (missing) | (missing) | | (unavailable | 13:30:07 | [facility] | | | | + + + +-------+ + + + + | Result panel 230 | + + + + + +--------+ + + | | 2022-11-22 | [facility] | 4.00 | (missing) | (missing) | | (unavailable | 13:30:07 | [facility] | | | | + + + +--------+ + + + + | Result panel 231 | + + + + + +--------+ + + | | 2022-11-22 | [facility] | 12.1 | (missing) | (missing) | | (unavailable | 13:30:07 | [facility] | | | | + + + +--------+ + + + + | Result panel 232 | + + + + + +--------+ + + | | 2022-11-22 | [facility] | 37.2 | (missing) | (missing) | | (unavailable | 13:30:07 | [facility] | | | | + + + +--------+ + + + + | Result panel 233 | + + + + + +--------+ + + | | 2022-11-22 | [facility] | 92.8 | (missing) | (missing) | | (unavailable | 13:30:07 | [facility] | | | | + + + +--------+ + + + + | Result panel 234 | + + + + + +--------+ + + | | 2022-11-22 | [facility] | 37.2 | (missing) | (missing) | | (unavailable | 13:30:07 | [facility] | | | | + + + +--------+ + + + + | Result panel 235 | + + + + + +--------+ + + | | 2022-11-22 | [facility] | 30.1 | (missing) | (missing) | | (unavailable | 13:30:07 | [facility] | | | | + + + +--------+ + + + + | Result panel 236 | + + + + + +--------+ + + | | 2022-11-22 | [facility] | 32.5 | (missing) | (missing) | | (unavailable | 13:30:07 | [facility] | | | | + + + +--------+ + + + + | Result panel 237 | + + + + + +--------+ + + | | 2022-11-22 | [facility] | 13.1 | (missing) | (missing) | | (unavailable | 13:30:07 | [facility] | | | | + + + +--------+ + + + + | Result panel 238 | + + + + + +-------+ + + | | 2022-11-22 | [facility] | 290 | (missing) | (missing) | | (unavailable | 13:30:07 | [facility] | | | | + + + +-------+ + + + + | Result panel 239 | + + + + + +------+ + + | | 2022-11-22 | [facility] | 58 | (missing) | (missing) | | (unavailable | 13:30:07 | [facility] | | | | + + + +------+ + + + + | Result panel 240 | + + + + + +------+ + + | | 2022-11-22 | [facility] | 40 | (missing) | (missing) | | (unavailable | 13:30:07 | [facility] | | | | + + + +------+ + + + + | Result panel 241 | + + + + + +-----+ + + | | 2022-11-22 | [facility] | 2 | (missing) | (missing) | | (unavailable | 13:30:07 | [facility] | | | | + + + +-----+ + + + + | Result panel 242 | + + + + + + + + + | | 2022-11-22 | [facility] | PRESENT | (missing) | (missing) | | (unavailable | 13:30:07 | [facility] | | | | + + + + + + + + + | Result panel 243 | + + + + + +--------+ + + | | 2022-11-22 | [facility] | 20.9 | (missing) | (missing) | | (unavailable | 13:30:07 | [facility] | | | | + + + +--------+ + + + + | Result panel 244 | + + + + + +--------+ + + | | 2022-11-22 | [facility] | 1.88 | (missing) | (missing) | | (unavailable | 13:30:07 | [facility] | | | | + + + +--------+ + + + + | Result panel 245 | + + + + + +--------+ + + | | 2022-11-22 | [facility] | 92.8 | (missing) | (missing) | | (unavailable | 13:30:07 | [facility] | | | | + + + +--------+ + + + + | Result panel 246 | + + + + + +-------+---------+ + | | 2022-11-22 | [facility] | 103 | mg/dL | (missing) | | (unavailable | 13:30:07 | [facility] | | | | + + + +-------+---------+ + + + | Result panel 247 | + + + + + +------+---------+ + | | 2022-11-22 | [facility] | 13 | mg/dL | (missing) | | (unavailable | ::07 | [facility] | | | | + + + +------+---------+ + + + | Result panel 248 | + + + + + +--------+---------+ + | | 2022-11-22 | [facility] | 0.85 | mg/dL | (missing) | | (unavailable | 13:30:07 | [facility] | | | | + + + +--------+---------+ + + + | Result panel 249 | + + + + + +------+ + + | | 2022-11-22 | [facility] | 71 | (missing) | (missing) | | (unavailable | 13:30:07 | [facility] | | | | + + + +------+ + + + + | Result panel 250 | + + + + + +---------+ + + | | 2022-11-22 | [facility] | 15.29 | (missing) | (missing) | | (unavailable | 13:30:07 | [facility] | | | | + + + +---------+ + + + + | Result panel 251 | + + + + + +-------+ + + | | 2022-11-22 | [facility] | 140 | (missing) | (missing) | | (unavailable | 13:30:07 | [facility] | | | | + + + +-------+ + + + + | Result panel 252 | + + + + + +-------+ + + | | 2022-11-22 | [facility] | 4.0 | (missing) | (missing) | | (unavailable | 13:30:07 | [facility] | | | | + + + +-------+ + + + + | Result panel 253 | + + + + + +-------+ + + | | 2022-11-22 | [facility] | 104 | (missing) | (missing) | | (unavailable | 13:30:07 | [facility] | | | | + + + +-------+ + + + + | Result panel 254 | + + + + + +------+ + + | | 2022-11-22 | [facility] | 29 | (missing) | (missing) | | (unavailable | 13:30:07 | [facility] | | | | + + + +------+ + + + + | Result panel 255 | + + + + + +--------+ + + | | 2022-11-22 | [facility] | 11.0 | (missing) | (missing) | | (unavailable | 13:30:07 | [facility] | | | | + + + +--------+ + + + + | Result panel 256 | + + + + + +--------+ + + | | 2022-11-22 | [facility] | 30.1 | (missing) | (missing) | | (unavailable | 13:30:07 | [facility] | | | | + + + +--------+ + + + + | Result panel 257 | + + + + + +-------+---------+ + | | 2022-11-22 | [facility] | 8.7 | mg/dL | (missing) | | (unavailable | 13:30:07 | [facility] | | | | + + + +-------+---------+ + + + | Result panel 258 | + + + + + +-------+ + + | | 2022-11-22 | [facility] | 7.5 | (missing) | (missing) | | (unavailable | 13:30:07 | [facility] | | | | + + + +-------+ + + + + | Result panel 259 | + + + + + +-------+ + + | | 2022-11-22 | [facility] | 3.7 | (missing) | (missing) | | (unavailable | 13:30:07 | [facility] | | | | + + + +-------+ + + + + | Result panel 260 | + + + + + +-------+ + + | | 2022-11-22 | [facility] | 3.8 | (missing) | (missing) | | (unavailable | 13:30:07 | [facility] | | | | + + + +-------+ + + + + | Result panel 261 | + + + + + +--------+ + + | | 2022-11-22 | [facility] | 0.97 | (missing) | (missing) | | (unavailable | 13:30:07 | [facility] | | | | + + + +--------+ + + + + | Result panel 262 | + + + + + +-------+ + + | | 2022-11-22 | [facility] | 0.4 | (missing) | (missing) | | (unavailable | 13:30:07 | [facility] | | | | + + + +-------+ + + + + | Result panel 263 | + + + + + +------+ + + | | 2022-11-22 | [facility] | 26 | (missing) | (missing) | | (unavailable | 13:30:07 | [facility] | | | | + + + +------+ + + + + | Result panel 264 | + + + + + +------+ + + | | 2022-11-22 | [facility] | 25 | (missing) | (missing) | | (unavailable | 13:30:07 | [facility] | | | | + + + +------+ + + + + | Result panel 265 | + + + + + +------+ + + | | 2022-11-22 | [facility] | 73 | (missing) | (missing) | | (unavailable | 13:30:07 | [facility] | | | | + + + +------+ + + + + | Result panel 266 | + + + + + +--------+ + + | | 2022-11-22 | [facility] | 32.5 | (missing) | (missing) | | (unavailable | 13:30:07 | [facility] | | | | + + + +--------+ + + + + | Result panel 267 | + + + + + +--------+ + + | | 2022-11-22 | [facility] | 13.1 | (missing) | (missing) | | (unavailable | 13:30:07 [facility] | | | | + + + +--------+ + + + + | Result panel 268 | + + + + + +-------+ + + | | 2022-11-22 | [facility] | 290 | (missing) | (missing) | | (unavailable | 13:30:07 | [facility] | | | | + + + +-------+ + + Social History No information. Vital Signs + + + +---------+ | date | measurement | value | units | + + + +---------+ | 2022-08-21 00:00 | BP_diastolic | 77 | mmHg | + + + +---------+ | 2022-08-21 00:00 | BP_systolic | 172 | mmHg | + + + +---------+ | 2022-08-21 00:00 | heart_rate | 56 | /min | + + + +---------+ | 2022-09-09 00:00 | BMI | 36.1 | kg/m2 | + + + +---------+ | 2022-09-09 00:00 | height_metric | 165.1 | cm | + + + +---------+ | 2022-09-09 00:00 | height_standard | 65 | in | + + + +---------+ | 2022-09-09 00:00 | weight_metric | 98.4 | kg | + + + +---------+ | 2022-09-09 00:00 | weight_standard | 216.93 | lb | + + + +---------+ | 2022-09-10 00:00 | BP_diastolic | 63 | mmHg | + + + +---------+ | 2022-09-10 00:00 | BP_systolic | 137 | mmHg | + + + +---------+ | 2022-09-10 00:00 | heart_rate | 67 | /min | + + + +---------+ | 2022-09-10 00:00 | o2_saturation | 95 | % | + + + +---------+ | 2022-09-10 00:00 | respiration_rate | 17 | /min | + + + +---------+ | 2022-09-10 00:00 | temperature_metric | 36.39 | C | | | | | | + + + +---------+ | 2022-09-10 00:00 | | 97.5 | F | | | temperature_standar | | | | | d | | | + + + +---------+ | 2022-09-12 00:00 | BMI | 35.9 | kg/m2 | + + + +---------+ | 2022-09-12 00:00 | BP_diastolic | 69 | mmHg | + + + +---------+ | 2022-09-12 00:00 | BP_systolic | 170 | mmHg | + + + +---------+ | 2022-09-12 00:00 | heart_rate | 67 | /min | + + + +---------+ | 2022-09-12 00:00 | height_metric | 165.1 | cm | + + + +---------+ | 2022-09-12 00:00 | height_standard | 65 | in | + + + +---------+ | 2022-09-12 00:00 | o2_saturation | 96 | % | + + + +---------+ | 2022-09-12 00:00 | respiration_rate | 19 | /min | + + + +---------+ | 2022-09-12 00:00 | temperature_metric | 36.56 | C | | | | | | + + + +---------+ | 2022-09-12 00:00 | | 97.8 | F | | | temperature_standar | | | | | d | | | + + + +---------+ | 2022-09-12 00:00 | weight_metric | 97.98 | kg | + + + +---------+ | 2022-09-12 00:00 | weight_standard | 216 | lb | + + + +---------+ | 2022-09-12 00:00 | weight_standard | 216.01 | lb | + + + +---------+ | 2022-09-15 00:00 | BMI | 35.9 | kg/m2 | + + + +---------+ | 2022-09-15 00:00 | height_metric | 165.1 | cm | + + + +---------+ | 2022-09-15 00:00 | height_standard | 65 | in | + + + +---------+ | 2022-09-15 00:00 | weight_metric | 97.98 | kg | + + + +---------+ | 2022-09-15 00:00 | weight_standard | 216 | lb | + + + +---------+ | 2022-09-15 00:00 | weight_standard | 216.01 | lb | + + + +---------+ | 2022-09-16 00:00 | BP_diastolic | 63 | mmHg | + + + +---------+ | 2022-09-16 00:00 | BP_systolic | 137 | mmHg | + + + +---------+ | 2022-09-16 00:00 | heart_rate | 56 | /min | + + + +---------+ | 2022-09-16 00:00 | o2_saturation | 97 | % | + + + +---------+ | 2022-09-16 00:00 | respiration_rate | 16 | /min | + + + +---------+ | 2022-09-16 00:00 | temperature_metric | 36.5 | C | | | | | | + + + +---------+ | 2022-09-16 00:00 | | 97.7 | F | | | temperature_standar | | | | | d | | | + + + +---------+ | 2022-10-30 00:00 | BP_diastolic | 70 | mmHg | + + + +---------+ | 2022-10-30 00:00 | BP_systolic | 150 | mmHg | + + + +---------+ | 2022-10-30 00:00 | heart_rate | 62 | /min | + + + +---------+ | 2022-11-13 00:00 | BP_diastolic | 84 | mmHg | + + + +---------+ | 2022-11-13 00:00 | BP_systolic | 147 | mmHg | + + + +---------+ | 2022-11-13 00:00 | heart_rate | 66 | /min | + + + +---------+ | 2022-11-22 00:00 | BMI | 36.0 | kg/m2 | + + + +---------+ | 2022-11-22 00:00 | BP_diastolic | 77 | mmHg | + + + +---------+ | 2022-11-22 00:00 | BP_systolic | 161 | mmHg | + + + +---------+ | 2022-11-22 00:00 | heart_rate | 57 | /min | + + + +---------+ | 2022-11-22 00:00 | height_metric | 165.1 | cm | + + + +---------+ | 2022-11-22 00:00 | height_standard | 65 | in | + + + +---------+ | 2022-11-22 00:00 | o2_saturation | 99 | % | + + + +---------+ | 2022-11-22 00:00 | respiration_rate | 15 | /min | + + + +---------+ | 2022-11-22 00:00 | temperature_metric | 36.72 | C | | | | | | + + + +---------+ | 2022-11-22 00:00 | | 98.1 | F | | | temperature_standar | | | | | d | | | + + + +---------+ | 2022-11-22 00:00 | weight_metric | 98 | kg | + + + +---------+ | 2022-11-22 00:00 | weight_standard | 216.05 | lb | + + + +---------+ | 2022-11-22 00:00 | weight_standard | 216.06 | lb | + + + +---------+ | 2022-12-04 00:00 | BP_diastolic | 82 | mmHg | + + + +---------+ | 2022-12-04 00:00 | BP_systolic | 131 | mmHg | + + + +---------+ | 2022-12-04 00:00 | heart_rate | 63 | /min | + + + +---------+ | 2022-12-21 00:00 | BMI | 35.9 | kg/m2 | + + + +---------+ | 2022-12-21 00:00 | BP_diastolic | 87 | mmHg | + + + +---------+ | 2022-12-21 00:00 | BP_systolic | 169 | mmHg | + + + +---------+ | 2022-12-21 00:00 | heart_rate | 60 | /min | + + + +---------+ | 2022-12-21 00:00 | height_metric | 165.1 | cm | + + + +---------+ | 2022-12-21 00:00 | height_standard | 65 | in | + + + +---------+ | 2022-12-21 00:00 | o2_saturation | 99 | % | + + + +---------+ | 2022-12-21 00:00 | respiration_rate | 16 | /min | + + + +---------+ | 2022-12-21 00:00 | temperature_metric | 36.72 | C | | | | | | + + + +---------+ | 2022-12-21 00:00 | | 98.1 | F | | | temperature_standar | | | | | d | | | + + + +---------+ | 2022-12-21 00:00 | weight_metric | 97.98 | kg | + + + +---------+ | 2022-12-21 00:00 | weight_standard | 216 | lb | + + + +---------+ | 2022-12-21 00:00 | weight_standard | 216.01 | lb | + + + +---------+"
--- OUTSIDE RECORDS SUMMARY | ~2023-03-18 | XMS | Continuity of Care Document ---
Demographics + + + | Address | [address] [place] [address] | | | [place] [address] | + + + | Preferred Language | Unknown | + + + | Marital Status | | + + + | Sikhism Affiliation | Unknown | + + + | Race | White | + + + | Ethnic Group | Not or | + + + Author + + + | Author | [facility] | + + + | Organization | [facility] | + + + | Address | [address] | | | [place] [address] | + + + | Phone | | + + + Care Team Providers + + + + | Care Block Feeder Name | Role | Phone | + [...] | 2017-12-23 00:00 | Botulinum Antitoxin | [facility] | + + + + | 2017-12-23 00:00 | Botulinum Antitoxin | [facility] | + + + + | 2017-12-23 00:00 | Botulinum Antitoxin | [facility] | + + + + | 2019-02-09 00:00 | Botulinum Antitoxin | [facility] | + + + + | 2019-02-09 00:00 | Botulinum Antitoxin | [facility] | + + + + | 2019-02-09 00:00 | Botulinum Antitoxin | [facility] | + + + + Medications + + + + | date | description | facility | + + + + | 2022-09-10 00:00 | FLUOXETINE HCL | [facility] | + + + + | 2022-09-12 00:00 | FLUOXETINE HCL | [facility] | + + + + | 2022-09-16 00:00 | FLUOXETINE HCL | [facility] | + + + + | 2022-11-22 00:00 | FLUOXETINE HCL | [facility] | + + + + | 2022-12-21 00:00 | FLUOXETINE HCL | [facility] | + + + + | 2022-09-12 00:00 | ONDANSETRON | [facility] | + + + + | 2022-09-12 00:00 | ONDANSETRON | [facility] | + + + + | 2014-09-14 00:00 | OXYCODONE | [facility] | | | HCL/ACETAMINOPHEN | | + + + + | 2014-09-14 00:00 | OXYCODONE | [facility] | | | HCL/ACETAMINOPHEN | | + + + + | 2014-09-14 00:00 | OXYCODONE | [facility] | | | HCL/ACETAMINOPHEN | | + + + + | 2021-10-27 00:00 | MUPIROCIN | [facility] | + + + + | 2021-10-27 00:00 | MUPIROCIN | [facility] | + + + + | 2021-10-27 00:00 | MUPIROCIN | [facility] | + + + + | 2022-09-12 00:00 | HYDROCORTISONE ACETATE | [facility] | + + + + | 2022-09-12 00:00 | HYDROCORTISONE ACETATE | [facility] | + + + + | 2022-09-12 00:00 | HYDROCORTISONE ACETATE | [facility] | + + + + | 2022-09-10 00:00 | OMEPRAZOLE | [facility] | + + + + | 2022-09-12 00:00 | OMEPRAZOLE | [facility] | + + + + | 2022-09-16 00:00 | OMEPRAZOLE | [facility] | + + + + | 2022-11-22 00:00 | OMEPRAZOLE | [facility] | + + + + | 2022-12-21 00:00 | OMEPRAZOLE | [facility] | + + + + | 2022-12-21 00:00 | ROCIO/POLYMYX B | [facility] | | | SULF/DEXAMETH | | + + + + | 2022-09-10 00:00 | ATORVASTATIN CALCIUM | [facility] | + + + + | 2022-09-12 00:00 | ATORVASTATIN CALCIUM | [facility] | + + + + | 2022-09-16 00:00 | ATORVASTATIN CALCIUM | [facility] | + + + + | 2022-11-22 00:00 | ATORVASTATIN CALCIUM | [facility] | + + + + | 2022-12-21 00:00 | ATORVASTATIN CALCIUM | [facility] | + + + + | 2022-09-10 00:00 | ASPIRIN | [facility] | + + + + | 2022-09-10 00:00 | ASPIRIN | [facility] | + + + + | 2022-09-10 00:00 | ASPIRIN | [facility] | + + + + | 2016-11-01 00:00 | CEPHALEXIN | [facility] | + + + + | 2016-11-01 00:00 | CEPHALEXIN | [facility] | + + + + | 2016-11-01 00:00 | CEPHALEXIN | [facility] | + + + + | 2022-09-12 00:00 | METRONIDAZOLE | [facility] | + + + + | 2022-09-12 00:00 | METRONIDAZOLE | [facility] | + + + + | 2017-11-05 00:00 | ONDANSETRON | [facility] | + + + + | 2017-11-05 00:00 | ONDANSETRON | [facility] | + + + + | 2017-11-05 00:00 | ONDANSETRON | [facility] | + + + + | 2022-09-12 00:00 | AMOXICILLIN/POTASSIUM CLAV | [facility] | | | | | + + + + | 2022-09-12 00:00 | AMOXICILLIN/POTASSIUM CLAV | [facility] | | | | | + + + + | 2022-09-10 00:00 | DULOXETINE HCL | [facility] | + + + + | 2022-09-12 00:00 | DULOXETINE HCL | [facility] | + + + + | 2022-09-16 00:00 | DULOXETINE HCL | [facility] | + + + + | 2022-11-22 00:00 | DULOXETINE HCL | [facility] | + + + + | 2022-12-21 00:00 | DULOXETINE HCL | [facility] | + + + + | 2022-09-10 00:00 | CHOLECALCIFEROL (VITAMIN | [facility] | | | D3) | | + + + + | 2022-09-12 00:00 | CHOLECALCIFEROL (VITAMIN | [facility] | | | D3) | | + + + + | 2022-09-16 00:00 | CHOLECALCIFEROL (VITAMIN | [facility] | | | D3) | | + + + + | 2022-11-22 00:00 | CHOLECALCIFEROL (VITAMIN | [facility] | | | D3) | | + + + + | 2022-12-21 00:00 | CHOLECALCIFEROL (VITAMIN | [facility] | | | D3) | | + + + + | 2022-09-10 00:00 | CYCLOBENZAPRINE HCL | [facility] | + + + + | 2022-09-12 00:00 | CYCLOBENZAPRINE HCL | [facility] | + + + + | 2022-09-16 00:00 | CYCLOBENZAPRINE HCL | [facility] | + + + + | 2022-11-22 00:00 | CYCLOBENZAPRINE HCL | [facility] | + + + + | 2022-12-21 00:00 | CYCLOBENZAPRINE HCL | [facility] | + + + + | 2014-09-14 00:00 | CYCLOBENZAPRINE HCL | [facility] | + + + + | 2014-09-14 00:00 | CYCLOBENZAPRINE HCL | [facility] | + + + + | 2014-09-14 00:00 | CYCLOBENZAPRINE HCL | [facility] | + + + + | 2022-09-10 00:00 | WARFARIN SODIUM | [facility] | + + + + | 2022-09-12 00:00 | WARFARIN SODIUM | [facility] | + + + + | 2022-09-16 00:00 | WARFARIN SODIUM | [facility] | + + + + | 2022-11-22 00:00 | WARFARIN SODIUM | [facility] | + + + + | 2022-12-21 00:00 | WARFARIN SODIUM | [facility] | + + + + | 2013-05-06 00:00 | HYDROCODONE/APAP | [facility] | | | (10-325MG) | | + + + + | 2013-05-06 00:00 | HYDROCODONE/APAP | [facility] | | | (10-325MG) | | + + + + | 2013-05-06 00:00 | HYDROCODONE/APAP | [facility] | | | (10-325MG) | | + + + + | 2020-12-03 00:00 | HYDROCODONE | [facility] | | | BIT/ACETAMINOPHEN | | + + + + | 2020-12-03 00:00 | HYDROCODONE | [facility] | | | BIT/ACETAMINOPHEN | | + + + + | 2020-12-03 00:00 | HYDROCODONE | [facility] | | | BIT/ACETAMINOPHEN | | + + + + | 2022-09-15 00:00 | HYDROCODONE | [facility] | | | BIT/ACETAMINOPHEN | | + + + + | 2014-01-24 00:00 | HYDROCODONE | [facility] | | | BIT/ACETAMINOPHEN | | + + + + | 2014-01-24 00:00 | HYDROCODONE | [facility] | | | BIT/ACETAMINOPHEN | | + + + + | 2014-01-24 00:00 | HYDROCODONE | [facility] | | | BIT/ACETAMINOPHEN | | + + + + | 2022-09-10 00:00 | CHOLECALCIFEROL (VITAMIN | [facility] | | | D3) | | + + + + | 2022-09-12 00:00 | CHOLECALCIFEROL (VITAMIN | [facility] | | | D3) | | + + + + | 2022-09-16 00:00 | CHOLECALCIFEROL (VITAMIN | [facility] | | | D3) | | + + + + | 2022-11-22 00:00 | CHOLECALCIFEROL (VITAMIN | [facility] | | | D3) | | + + + + | 2022-12-21 00:00 | CHOLECALCIFEROL (VITAMIN | [facility] | | | D3) | | + + + + | 2022-09-10 00:00 | METOPROLOL SUCCINATE | [facility] | + + + + | 2022-09-12 00:00 | METOPROLOL SUCCINATE | [facility] | + + + + | 2022-09-16 00:00 | METOPROLOL SUCCINATE | [facility] | + + + + | 2022-11-22 00:00 | METOPROLOL SUCCINATE | [facility] | + + + + | 2022-12-21 00:00 | METOPROLOL SUCCINATE | [facility] | + + + + | 2022-09-10 00:00 | LEVOTHYROXINE SODIUM | [facility] | + + + + | 2022-09-12 00:00 | LEVOTHYROXINE SODIUM | [facility] | + + + + | 2022-09-16 00:00 | LEVOTHYROXINE SODIUM | [facility] | + + + + | 2022-11-22 00:00 | LEVOTHYROXINE SODIUM | [facility] | + + + + | 2022-12-21 00:00 | LEVOTHYROXINE SODIUM | [facility] | + + + + | 2022-09-10 00:00 | Fluticasone Propionate | [facility] | + + + + | 2022-09-12 00:00 | Fluticasone Propionate | [facility] | + + + + | 2022-09-16 00:00 | Fluticasone Propionate | [facility] | + + + + | 2022-09-10 00:00 | ALENDRONATE SODIUM | [facility] | + + + + | 2022-09-12 00:00 | ALENDRONATE SODIUM | [facility] | + + + + | 2022-09-16 00:00 | ALENDRONATE SODIUM | [facility] | + + + + | 2022-11-22 00:00 | ALENDRONATE SODIUM | [facility] | + + + + | 2022-12-21 00:00 | ALENDRONATE SODIUM | [facility] | + + + + | 2022-09-10 00:00 | LEVOTHYROXINE SODIUM | [facility] | + + + + | 2022-09-12 00:00 | LEVOTHYROXINE SODIUM | [facility] | + + + + | 2022-09-16 00:00 | LEVOTHYROXINE SODIUM | [facility] | + + + + | 2022-11-22 00:00 | LEVOTHYROXINE SODIUM | [facility] | + + + + | 2022-12-21 00:00 | LEVOTHYROXINE SODIUM | [facility] | + + + + | 2022-09-10 00:00 | LOSARTAN POTASSIUM | [facility] | + + + + | 2022-09-12 00:00 | LOSARTAN POTASSIUM | [facility] | + + + + | 2022-09-16 00:00 | LOSARTAN POTASSIUM | [facility] | + + + + | 2022-11-22 00:00 | LOSARTAN POTASSIUM | [facility] | + + + + | 2022-12-21 00:00 | LOSARTAN POTASSIUM | [facility] | + + + + | 2022-09-12 00:00 | DICYCLOMINE HCL | [facility] | + + + + | 2022-09-12 00:00 | DICYCLOMINE HCL | [facility] | + + + + Problems + + + + | date | description | facility | + + + + | 2014-09-14 00:00 | Acute low back pain | [facility] | + + + + | 2014-09-14 00:00 | Acute low back pain | [facility] | + + + + | 2014-09-14 00:00 | Acute low back pain | [facility] | + + + + | 2015-11-13 00:00 | Headache | [facility] | + + + + | 2015-11-13 00:00 | Headache | [facility] | + + + + | 2015-11-13 00:00 | Headache | [facility] | + + + + | 2016-11-01 00:00 | Constipation | [facility] | + + + + | 2016-11-01 00:00 | Constipation | [facility] | + + + + | 2016-11-01 00:00 | Constipation | [facility] | + + + + | 2016-11-01 00:00 | Urinary tract infection | [facility] | + + + + | 2016-11-01 00:00 | Urinary tract infection | [facility] | + + + + | 2016-11-01 00:00 | Urinary tract infection | [facility] | + + + + | 2017-12-23 00:00 | Overactive bladder | [facility] | + + + + | 2017-12-23 00:00 | Overactive bladder | [facility] | + + + + | 2017-12-23 00:00 | Overactive bladder | [facility] | + + + + | 2017-12-23 00:00 | Microscopic hematuria | [facility] | + + + + | 2017-12-23 00:00 | Microscopic hematuria | [facility] | + + + + | 2017-12-23 00:00 | Microscopic hematuria | [facility] | + + + + | 2019-03-24 00:00 | Right calf pain | [facility] | + + + + | 2019-03-24 00:00 | Right calf pain | [facility] | + + + + | 2019-03-24 00:00 | Right calf pain | [facility] | + + + + | 2020-07-15 00:00 | Contusion of chest wall | [facility] | + + + + | 2020-07-15 00:00 | Contusion of chest wall | [facility] | + + + + | 2020-07-15 00:00 | Contusion of chest wall | [facility] | + + + + | 2021-03-02 00:00 | Pneumonia | [facility] | + + + + | 2021-03-02 00:00 | Pneumonia | [facility] | + + + + | 2021-03-02 00:00 | Pneumonia | [facility] | + + + + | 2021-09-22 00:00 | Contusion of rib on right | [facility] | | | side | | + + + + | 2021-09-22 00:00 | Contusion of rib on right | [facility] | | | side | | + + + + | 2021-09-22 00:00 | Contusion of rib on right | [facility] | | | side | | [...] + + + | 2021-09-22 15:56 | 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 | [facility] | | | ANTICOAGULANTS | | + + + + | 2021-09-22 15:56 | 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 | [facility] | | | SYSTEMIC STEROIDS | | + + + + | 2021-09-22 15:56 | OTHER RESIDENTIAL (CURRENT) | [facility] | | | DRUG [...] + | 2021-10-26 00:00 | Laceration | [facility] | + + + + | 2021-10-26 00:00 | Laceration | [facility] | + + + + | 2021-10-26 00:00 | Laceration | [facility] | + + + + | 2021-11-06 00:00 | Encounter for medical | [facility] | | | screening examination | | + + + + | 2021-11-06 00:00 | Encounter for medical | [facility] | | | screening examination | | + + + + | 2021-11-06 00:00 | Encounter for medical | [facility] | | | screening examination | | + + + + | 2021-11-20 00:00 | Fall | [facility] | + + + + | 2021-11-20 00:00 | Fall | [facility] | + + + + | 2021-11-20 00:00 | Fall | [facility] | + + + + | 2021-11-20 00:00 | On warfarin therapy | [facility] | + + + + | 2021-11-20 00:00 | On warfarin therapy | [facility] | + + + + | 2021-11-20 00:00 | On warfarin therapy | [facility] | + + + + | [...] + + + | 2021-11-20 07:35 | 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 | [employer] | + + + + | 2021-11-20 07:35 | skilled nursing (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 of | [employer] | | | systemic steroids | [employer] | + + + + | 2021-11-20 07:35 | Other assisted (current) | [employer] | | | [...] + + + | 2021-12-26 14:52 | RESIDENTIAL (CURRENT) USE OF | [facility] | | [...] + + + | 2022-05-08 14:38 | RESIDENTIAL (CURRENT) USE OF | [facility] | | [...] | 2022-09-09 00:00 | Cerebrovascular accident | [facility] | | | (CVA) | | + + + + | 2022-09-09 00:00 | Cerebrovascular accident | [facility] | | | (CVA) | | + + + + | 2022-09-09 00:00 | Cerebrovascular accident | [facility] | | | (CVA) | | [...] + | 2022-09-12 00:00 | Colitis | [facility] | + + + + | 2022-09-12 00:00 | Colitis | [facility] | + + + + | 2022-09-12 00:00 | Colitis | [facility] | + + + + | 2022-09-12 [...] + + + | 2022-09-12 12:55 | 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 | [facility] | | | ANTICOAGULANTS | | + + + + | 2022-09-12 12:55 | OTHER NUT PICKER (CURRENT) | [facility] | | | DRUG [...] | Alteration of sensation as | [facility] | | | late effect of | | | | cerebrovascular accident | | | | (CVA) | | + + + + | 2022-09-15 00:00 | Alteration of sensation as | [facility] | | | late effect of | [...] + + + | 2022-09-15 20:06 | 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 | [facility] | | | ANTICOAGULANTS | | + + + + | 2022-09-15 20:06 | OTHER RESIDENTIAL (CURRENT) | [facility] | | | DRUG [...] + + + | 2022-09-18 10:35 | RESIDENTIAL (CURRENT) USE OF | [facility] | | | ANTICOAGULANTS | | + + + + | 2022-10-02 11:30 | UNSPECIFIED ATRIAL | [facility] | | | FIBRILLATION | | + + + + | 2022-10-02 11:30 | ENCOUNTER FOR THERAPEUTIC | [facility] | | | DRUG LEVEL MONITORING | | + + + + | 2022-10-02 11:30 | RESIDENTIAL (CURRENT) USE OF | [facility] | | [...] + + + | 2022-10-16 11:00 | 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 | [facility] | | [...] + + + | 2022-11-13 11:29 | RESIDENTIAL (CURRENT) USE OF | [facility] | | | ANTICOAGULANTS | | + + + + | 2022-11-21 07:23 | OTHER LACUNAR SYNDROMES | [facility] | + + + + | 2022-11-21 07:39 | OTHER LACUNAR SYNDROMES | [facility] | + + + + | 2022-11-22 00:00 | Syncope | [facility] | + + + + | 2022-11-22 00:00 | Syncope | [facility] | + + + + | 2022-11-22 00:00 | Contusion of elbow | [facility] | + + + + | 2022-11-22 00:00 | Contusion of elbow | [facility] | + + + + | 2022-11-22 00:00 | Contusion of wrist | [facility] | + + + + | 2022-11-22 00:00 | Contusion of wrist | [facility] | + + + + | 2022-11-22 00:00 | Contusion of right knee | [facility] | + + + + | 2022-11-22 00:00 | Contusion of right knee | [facility] | + + + + | [...] + + + | 2022-11-22 13:18 | 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 | [facility] | | | ANTICOAGULANTS | | + + + + | 2022-11-22 13:18 | OTHER RESIDENTIAL (CURRENT) | [facility] | | | DRUG [...] + + + | 2022-12-04 11:06 | 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 | [facility] | | | ANTICOAGULANTS | | + + + + | 2022-12-21 00:00 | Allergic conjunctivitis | [facility] | + + + + | [...] + + + | 2022-12-21 11:38 | 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 | [facility] | | | ANTITHROMBOTICS/ANTIPLA | | + + + + | 2022-12-21 11:38 | RESIDENTIAL (CURRENT) USE OF | [facility] | | | ASPIRIN | | + + + + | 2022-12-21 11:38 | HORMONE REPLACEMENT | [facility] | | | THERAPY | | + + + + | 2022-12-21 11:38 | OTHER NUT PICKER (CURRENT) | [facility] | | | DRUG [...] + + + | 2023-01-29 11:38 | RESIDENTIAL (CURRENT) USE OF | [facility] | | | ANTICOAGULANTS | | + + + + | 2023-03-05 11:08 | ENCOUNTER FOR THERAPEUTIC | [facility] | | | DRUG LEVEL MONITORING | | + + + + | 2023-03-05 11:08 | RESIDENTIAL (CURRENT) USE OF | [facility] | | [...] (missing) | | (unavailable | 05:50:08 | [facility] | | | | | ) | [...] (missing) | | (unavailable | 13:30:07 | [facility] | | | | | ) | [...]
[~2023-03-18 14:40] MED LIST changes: +MAXITROL EYE DRO5 ML OS
--- OUTSIDE RECORDS SUMMARY | 2023-03-18 14:43 | XMS ---
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 Care History Medical/Surgical 11/28/2021 [facility] - Patient is currently established with [facility]. If patient is seen in the ED during business hours. Please contact CHWs at [facility]. Care Recommendation: If this patient has had [...] providing care. E.D. VISIT COUNT (12 MO.) [address] [facility] TOTAL 6 NOTE: Visits indicate total known visits. 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 of antithrombotics/antiplatelets - intermodal owner operator truck driver (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 of aspirin - Other shelter (current) drug therapy - Presence of artificial knee joint, bilateral - Unspecified disorder of eye and adnexa 11/22/2022 13:18 [facility] [place] TYPE: Emergency COMPLAINT: - FALL DIAGNOSES: - Allergy status to other antibiotic agents - Allergy status to other drugs, medicaments and biological substances - Allergy status to sulfonamides - Contusion of left elbow, initial encounter - Contusion of right knee, initial encounter - Contusion of right wrist, initial encounter - Essential (primary) hypertension - halfway (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 of anticoagulants - Other intermediate manager (current) drug therapy - Syncope and collapse - Unspecified atrial fibrillation - Unspecified fall, initial encounter 09/15/2022 20:06 [facility] [place] TYPE: Emergency COMPLAINT: - N/V SHARP PAIN ABOVE HER EYE DIAGNOSES: - Allergy status to other antibiotic agents - Allergy status to other drugs, medicaments and biological substances - Allergy status to sulfonamides - Essential (primary) hypertension - Hypothyroidism, unspecified - halfway (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 of anticoagulants - Lower abdominal pain, unspecified - Noninfective gastroenteritis and colitis, unspecified - Other intermediate manager (current) drug therapy - Personal history of [...] anus and rectum - Hypothyroidism, unspecified - halfway (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 of anticoagulants - Noninfective gastroenteritis and colitis, unspecified - Other intermediate manager (current) drug therapy - Personal history of [...] of small artery - Unspecified atrial fibrillation [email or web address]
[2023-03-18] MEDS ORDERED: ONDANSETRON ODT4 MG PO (16:25)
[2023-03-18 16:33] VITALS: BP 130/75
== END 2023-03-18 16:48 | disposition home or self-care (01) ==
LOC: ED 14:40
DX: S09.90XA Unspecified injury of head, initial encounter (principal); W22.09XA Striking against other stationary object, initial encounter; I10 Essential (primary) hypertension; I48.91 Unspecified atrial fibrillation; Z79.01 Long term (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 of anticoagulants; Z88.8 Allergy status to other drugs, medicaments and biological substances; Z88.2 Allergy status to sulfonamides; Z88.6 Allergy status to analgesic agent; Z88.1 Allergy status to other antibiotic agents; Z79.82 Long term (current) use of aspirin; Z79.899 Other long term (current) drug therapy
CPT/HCPCS: 70450; A9270

== ENCOUNTER 2023-05-05 11:10 | Observation (INO) | payer MEDICARE ==
[~2023-05-05] VITALS: Ht 165.1 cm; Wt 90.1 kg
--- OUTSIDE RECORDS SUMMARY | 2023-05-05 11:12 | XMS ---
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 Care History Medical/Surgical 11/28/2021 [facility] - Patient is currently established with [facility]. If patient is seen in the ED during business hours. Please contact CHWs at [facility]. Care Recommendation: If this patient has [...] care. E.D. VISIT COUNT (12 MO.) 7 [facility] TOTAL 7 NOTE: Visits indicate total known visits. ED/UCC VISIT TRACKING (12 MO.) 05/05/2023 11:[address] 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 - prison (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 of aspirin - Other snf (current) drug therapy - Striking against other stationary object, initial encounter - Unspecified atrial fibrillation - Unspecified injury of head, initial encounter 12/21/2022 11:38 [facility] [place] TYPE: Emergency COMPLAINT: - EYE IRRITATION DIAGNOSES: - Acute atopic conjunctivitis, bilateral - Allergy status to analgesic agent - Allergy status to other drugs, medicaments and biological substances - Allergy status to sulfonamides - Essential (primary) hypertension - Hormone replacement therapy - prison (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 of antithrombotics/antiplatelets - marine oil terminal superintendent (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 of aspirin - Other terminal make up operator (current) drug therapy - Presence of artificial knee joint, bilateral - Unspecified disorder of eye and adnexa 11/22/2022 13:18 [facility] [place] TYPE: Emergency COMPLAINT: - FALL DIAGNOSES: - Allergy status to other antibiotic agents - Allergy status to other drugs, medicaments and biological substances - Allergy status to sulfonamides - Contusion of left elbow, initial encounter - Contusion of right knee, initial encounter - Contusion of right wrist, initial encounter - Essential (primary) hypertension - 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 - Other snf (current) drug therapy - Syncope and collapse - Unspecified atrial fibrillation - Unspecified fall, initial encounter 09/15/2022 20:06 [facility] [place] TYPE: Emergency COMPLAINT: - N/V SHARP PAIN ABOVE HER EYE DIAGNOSES: - Allergy status to other antibiotic agents - Allergy status to other drugs, medicaments and biological substances - Allergy status to sulfonamides - Essential (primary) hypertension - Hypothyroidism, unspecified - prison (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 of anticoagulants - Lower abdominal pain, unspecified - Noninfective gastroenteritis and colitis, unspecified - Other terminal make up operator (current) drug therapy - Personal history [...] anus and rectum - Hypothyroidism, unspecified - 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
[2023-05-05 11:29] LABS: BASOPHILS 1.1 % (0-2); EOSINOPHILS 2.5 % (0-6); HEMATOCRIT 36.5 % (35.0-50.0); HEMOGLOBIN 11.9 g/dL (12.0-18.0); LYMPHOCYTES 29.9 % (24-44); MCH 29.7 (27-36); MCHC 32.6 g/dl (30-36); MONOCYTES 8.4 % (0-12); NEUTROPHILS 58.1 % (39-80); PLATELET COUNT 295 K/uL (140-440); RBC 4.01 M/ul (4.3-5.7); RDW 13.8 (10.5-15.0)
[2023-05-05 11:37] LABS: INR 1.26 (0.80-1.30); PROTIME 15.3 Sec (11.2-14.2)
[2023-05-05 11:39] LABS: PARTIAL THROMBOPLASTIN TIME 31.9 Sec (22.9-41.3)
[2023-05-05 11:42] LABS: ALBUMIN 3.8 g/dL (3.4-5.0); ALBUMIN/GLOBULIN RATIO 0.97 (1.1-2.4); BILIRUBIN, TOTAL 0.6 ng/dL (0.2-1.0); BUN/CREATININE RATIO 18.82 (6.0-28.6); CALCIUM 9.3 mg/dL (8.5-10.1); CREATININE, SERUM 0.85 mg/dL (0.55-1.02); PROTEIN, TOTAL 7.7 g/dL (6.4-8.2)
[2023-05-05] MEDS ORDERED: ELIQUIS5 MG PO (11:43)
[2023-05-05 12:29] LABS: INFLUENZA B NAA NEGATIVE (NEGATIVE); RESPIRATORY SYNCYTIAL VIR NAA NEGATIVE (NEGATIVE)
[2023-05-05] MEDS ORDERED: ECONAZOLE NITRA30 GM TOP (13:54)
[2023-05-05 17:47] VITALS: BP 165/89
--- NOTE | 2023-05-05 19:08 | NUR ---
BREIF SOILED WITH URINE, NINA CARE PROVIDED. BARRIER CREAM APPLIED. NEW BREIF AND PUREWICK PUT IN PLACE. EDUCATION PROVIDED ON PUREWICK, PT VERBALIZES UNDERSTANDING. TEA PROVIDED PER PT REQUEST. CALL LIGHT IN REACH, NO REQUESTS AT THIS TIME.
--- NOTE | 2023-05-05 19:15 | NUR ---
REPORT RECIEVED FROM CAMERON MCCURDY. BOARD UPDATED. CALL LIGHT WITH IN REACH. NO NEEDS AT THIS TIME. DAUGHTER PRESENT IN ROOM. UPDATED DAUGHTER AND PATIENT ON PLAN OF CARE.
[2023-05-05 21:17] VITALS: BP 150/74
--- NOTE | 2023-05-05 21:45 | EKG ---
[facility] [address] [facility] [place] [address] Signed Normal sinus rhythm with sinus arrhythmia Normal ECG When compared with ECG of 22-NOV-2022 13:26, premature atrial complexes are no longer present T wave inversion no longer evident in Inferior leads Confirmed by Sherley Schwartz MD () on 05/05/2023 9:45:09 PM Electronically Signed By: SHERLEY SCHWARTZ MD 05/05/23 2145 PATIENT NAME: AMADA SPAIN Electrocardiogram DATE OF : 45 PHYSICIAN: SHERLEY SCHWARTZ MD REPORT #: [id number] REPORT IS CONFIDENTIAL AND NOT TO BE RELEASED WITHOUT AUTHORIZATION
--- NOTE | 2023-05-05 22:00 | NUR ---
PATIENT RESTING IN THE BED. NINA CARE DONE. LINEN CHANGED. PURE WICK IN PLACE.
--- NOTE | 2023-05-05 22:07 | NUR ---
PATIENT RESTING IN THE BED. PRN PAIN MEDICATIONS GIVEN PRE ORDER SEE MAR. ASSESSMENT AND VITAL SIGNS DONE. LINEN CHANGED. NINA CARE DONE. BRIEF CHANGED. CALL LIGHT IN REACH. NO NEEDS AT THIS TIME. PURE WICK IN PLACE.
--- NOTE | 2023-05-06 00:18 | NUR ---
PATIENT RESTING IN THE BED WITH EYES CLOSED. RESP AT 16. CALL LIGHT WITH IN REACH.
[2023-05-06 02:38] VITALS: BP 117/82
--- NOTE | 2023-05-06 02:57 | NUR ---
ASSESSMENT AND VITAL SIGNS DONE. WATER REFRESHED. PUREWICK REPLACED. CALL LIGHT WITH IN REACH. NO FURTHER NEEDS AT THIS TIME.
--- NOTE | 2023-05-06 04:03 | NUR ---
PATIENT RESTING IN BED WITH EYES CLOSED. RESPITATIONS OBSERVED. CALL LIGHT WITH IN REACH.
[2023-05-06 05:52] LABS: BASOPHILS 0.4 % (0-2); EOSINOPHILS 3.7 % (0-6); HEMATOCRIT 34.9 % (35.0-50.0); HEMOGLOBIN 11.4 g/dL (12.0-18.0); LYMPHOCYTES 36.8 % (24-44); MCH 29.8 (27-36); MCHC 32.8 g/dl (30-36); MCV 90.9 fl (81-99); MONOCYTES 9.8 % (0-12); NEUTROPHILS 49.3 % (39-80); PLATELET COUNT 255 K/uL (140-440); RBC 3.84 M/ul (4.3-5.7); RDW 13.5 (10.5-15.0)
[2023-05-06 06:00] VITALS: BP 142/77
[2023-05-06 06:00] LABS: ALBUMIN 3.3 g/dL (3.4-5.0); ALBUMIN/GLOBULIN RATIO 0.94 (1.1-2.4); ANION GAP 9.2 (7-21); BILIRUBIN, TOTAL 0.5 ng/dL (0.2-1.0); BUN/CREATININE RATIO 18.3 (6.0-28.6); CALCIUM 8.6 mg/dL (8.5-10.1); CHOLESTEROL/HDL RATIO 3.1; CREATININE, SERUM 0.71 mg/dL (0.55-1.02); MAGNESIUM 2.1 mg/dL (1.8-2.4); PHOSPHORUS, INORGANIC 3.9 mg/dL (2.5-4.9); POTASSIUM 4.2 mmol/L (3.5-5.1); PROTEIN, TOTAL 6.8 g/dL (6.4-8.2)
--- NOTE | 2023-05-06 06:16 | NUR ---
VITAL SIGNS AND I&O'S DONE. IV FLUSHED AND ASSESSED WNL. ATTEND IS DRY AT THIS TIME. PATIENT DENIES ANY NEEDS. CALL LIGHT AND BELONGINS ARE WITH IN REACH.
--- NOTE | 2023-05-06 07:08 | NUR ---
VERBAL REPORT RECEIVED FROM CALLI MARC AND CALLI AYON. PT RESTS IN BED WITH EYES CLOSED, RESP EVEN AND UNLABORED.
--- NOTE | 2023-05-06 07:50 | NUR ---
MRI UP TO GET PATIENT. LINENS CHANGED WHILE PATIENT OUT OF ROOM.
--- NOTE | 2023-05-06 09:00 | NUR ---
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 She lives alone in her home in [place]. Daughters assist her, as well as other family members. Pt had a previous stroke. She is complaining of R hand numbness. She plans on going home to her house. FAmily will assist. Pt has a walker, cane, CPAP. She denies needs. She does her own, shopping, cooking, house cleaning. Family do her yard work. She uses [employer] and and [employer]. She states she has plenty of resources. Pt will dc to home.
--- NOTE | 2023-05-06 09:00 | NUR ---
PT BACK FROM MRI. INCONTINENCE OF URINE NOTED, NINA CARE PROVIDED, BARRIER FILM APPLIED, NEW BREIF AND NEW PUREWICK APPLIED. PT TOLERATED WELL. TELEMETRY APPLIED. MEAL ARRIVES, PT EATS, CALL LIGHT IN REACH. NO REQUESTS AT THIS TIME. PHYSICAL ASSESSMENT COMPLETE.
[2023-05-06 09:50] VITALS: BP 112/57
--- NOTE | 2023-05-06 09:56 | NUR ---
PATIENT IN BED RESTING AT THIS TIME. VITAS AND I&O'S CHARTED. FRESH WATER GIVEN. CALL LIGHT IN REACH. NO FURTHER NEEDS AT THIS TIME.
--- NOTE | 2023-05-06 12:15 | NUR ---
UR NOTE: MEETS DIZZINESS OBSERVATION CARE
--- NOTE | 2023-05-06 12:19 | NUR ---
PT IN GOOD SPIRITS. SHORT VISIT BECAUSE LUNCH ARRIVED. LEFT GUIDEPOST WITH PRAYER CARD AND CONTACT CARD. PRAYED FOR ONGOING HEALING AND ABIDING PEACE.
--- NOTE | 2023-05-06 13:37 | NUR ---
PT SITS UP IN BED, CALL LIGHT IN REACH. PT EATS 100% OF LUNCH, TOLERATES THIS WELL, DENIES NAUSEA. ICE WATER PROVIDED PER PT REQUEST. NO FURTHER REQUESTS AT THIS TIME.
[2023-05-06 14:14] VITALS: BP 119/61
--- NOTE | 2023-05-06 14:21 | NUR ---
PATIENT SITTING UP IN BED AT THIS TIME. VITAS AND I&O'S CHARTED. CALL LIGHT IN REACH. NO FURTHER NEEDS AT THIS TIME.
--- NOTE | 2023-05-06 16:17 | NUR ---
Update from Dr. Salgado. He plans on keeping this pt overnight for another day of PT due to their recommendation. Pt lives alone with assist from family. Plan for dc tomorrow.
[2023-05-06] MEDS ORDERED: MECLIZINE HCL25 MG PO (16:31)
--- NOTE | 2023-05-06 16:54 | NUR ---
Update from Dr. Chapman. Pt declined to stay and plans on dc to home with assist from family.
--- NOTE | 2023-05-06 17:28 | NUR ---
IV REMOVED, TIP INTACT, GAUZE AND COBAN DRESSING APPLIED TO SITE, PT TOLERATED WELL. TELEMETRY REMOVED. PUREWICK REMOVED. PT DRESSES SELF, TOLERATES ACTIVITY WELL. DISCUSSED D/C INSTRUCTIONS WITH PT AND PT'S DAUGHTER, BOTH VERBALIZE UNDERSTANDING. PT EATS DINNER.
== END 2023-05-06 17:38 | disposition home or self-care (01) ==
LOC: ED 11:10 → MS 11:11
PROVIDERS: Emergency Medicine; ADMIT Family Medicine; ATTEND Family Medicine
DX: R42 Dizziness and giddiness (principal); I48.91 Unspecified atrial fibrillation; E03.9 Hypothyroidism, unspecified; B37.2 Candidiasis of skin and nail; Z86.16 Personal history of COVID-19; Z88.8 Allergy status to other drugs, medicaments and biological substances; Z88.6 Allergy status to analgesic agent; Z79.82 Long term (current) use of aspirin; Z79.01 Long term (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 of anticoagulants; Z79.899 Other long term (current) drug therapy
CPT/HCPCS: 36415; 70450; 70496; 70498; 70551; 71045; 80053; 80061; 83036; 83735; 84100; 85025; 85610; 85730; 87502; 93005; 93010; 97116; 97161; 97165; 99285-25; A9270; G0378; U0002

== ENCOUNTER 2023-08-20 10:26 | Day surgery (SDC) | payer MEDICARE, OTHER ==
[~2023-08-20] VITALS: Ht 165.1 cm; Wt 87.3 kg
[~2023-08-20 10:26] MED LIST changes: +ECONAZOLE NITRA30 GM TOP; +ELIQUIS5 MG PO; +MECLIZINE HCL25 MG PO; +OMEGA 3 1,0001 EACH PO; +VITAMIN D250 MC1 PO
[2023-08-20 10:44] VITALS: BP 121/59
--- NOTE | 2023-08-20 11:59 | NUR ---
08/20/23 1159 Turk,Bette Diaz PATIENT ARRIVED TO PACU RESPONSIVE, BUT DROWSY. O2 TURNED OFF. PATIENT ON ROOM AIR. DENIES PAIN.
[2023-08-20 13:03] VITALS: BP 114/65
--- NOTE | 2023-08-21 08:43 | OR ---
[facility] [address], [place] [address] Signed DATE OF OPERATION: 08/20/2023 SURGEON: Maria Snider MD PREOPERATIVE DIAGNOSIS: Persistent constipation, known diverticulosis. POSTOPERATIVE DIAGNOSES: 1. Sigmoid diverticulosis. 2. Small polyp, right transverse colon. 3. Mild cecitis. PROCEDURES: Total colonoscopy to cecum with biopsy of cecum and cold morcellation excision of polyp of right transverse colon. ANESTHESIA: Intravenous sedation, fentanyl 150 mcg and Versed 7 mg. INDICATIONS: This 78-year-old white woman is a patient of Dr. Amee Ayon. She has complaints of constipation, though no blood per rectum. She previously has undergone colonoscopy in 2016. In the meantime of her last colonoscopy, which showed only diverticulosis, she had a cerebrovascular accident, now is chronically anticoagulated with Eliquis. She is off Eliquis for three days prior to colonoscopy performed at this time to assess for issues of constipation. She understands the risk of bleeding, infection, and perforation related to colonoscopy and wished to proceed. FINDINGS: The prep was good. Complete colonoscopy was undertaken to the cecum without question. She had mild inflammation of the cecum, probably not pathologic. It was biopsied nevertheless. There was a small polyp of the right transverse colon, which was additionally excised. Numerous diverticula were seen of the sigmoid and left colon. Retroflexed view of the rectum was normal. DESCRIPTION OF PROCEDURE: The patient was brought to the endoscopy suite and placed in lateral decubitus position given intravenous sedation to the point of slurred speech and nystagmus. Full cardiopulmonary monitoring was maintained. Digital rectal examination was normal. An Olympus video colonoscope was passed into the rectum and manipulated throughout the Electronically Signed By: MARIA NSIDER MD 08/21/23 0843 PATIENT NAME: AMADA SPAIN OPERATIVE REPORT DATE OF : 45 REPORT #: [id number] PHYSICIAN: MARIA SNIDER MD PCP: AMEE AYON MD REPORT IS CONFIDENTIAL AND NOT TO BE RELEASED WITHOUT AUTHORIZATION [facility] [address], [place] [address] Signed colon noting numerous diverticula of the sigmoid and left colon. Scope was passed ultimately to the hepatic flexure, where abdominal wall stabilization was required allowing for full intubation of the cecum. Ileocecal valve and appendiceal orifice were normal. There did appear to be a low-grade inflammation of the cecum and on that basis, it was biopsied. The scope was then withdrawn and careful examination undertaken showed a small polyp of the right transverse colon, which was excised with cold morcellation technique. Further withdrawal showed no other abnormality other than diverticulosis of the left colon and sigmoid. Retroflexed view of the rectum was normal. Scope was removed. The patient was taken to the recovery room in good condition having suffered no complication. CONCLUDING DIAGNOSIS: Small polyp of colon and diverticulosis, most likely accounting for her constipation. PLAN: We would recommend a fiber supplement such as Metamucil one scoop powder daily and with increased fluid intake by mouth. We would recommend repeat colonoscopy in 5 years and if needed the patient to take MiraLAX one cap full powder daily. She will return to the ongoing care of Dr. Amee Ayon. Maria Snider MD JM/MODL /[id number] cc: Dr. Amee Ayon Copies: ~ Electronically Signed By: MARIA SNIDER MD 08/21/23 0843 PATIENT NAME: AMADA SPAIN OPERATIVE REPORT DATE OF : 45 REPORT #: [id number] PHYSICIAN: MARIA SNIDER MD PCP: AMEE AYON MD REPORT IS CONFIDENTIAL AND NOT TO BE RELEASED WITHOUT AUTHORIZATION
--- NOTE | 2023-08-22 15:46 | PATH ---
[facility] [address] [facility] [place], [place] [address] Signed SPECIMEN(S): A CECUM COLON BIOPSY SPECIMEN(S): B HEPATIC FLEXURE COLON POLYP SPECIMEN SOURCE: A. CECUM COLON BIOPSY B. HEPATIC FLEXURE COLON POLYP CLINICAL HISTORY: History of constipation FINAL PATHOLOGIC DIAGNOSIS: A. Cecum colon biopsy: - Benign colonic mucosa, negative for specific diagnostic abnormality. B. Hepatic flexure colon polyp: - Tubular adenoma (two fragments). JVR:clv MICROSCOPIC EXAMINATION: Histologic sections of all submitted blocks are examined by light microscopy. These findings, together with the gross examination, support the pathologic diagnosis. GROSS DESCRIPTION: A. The specimen, labeled and designated "Martha, cecum colon biopsy," is received in formalin and consists of three king soft tissue fragments, ranging from 0.1-0.4 cm. Entirely submitted in (A1). B. The specimen, labeled and designated "Thomas, hepatic flexure colon polyp," is received in formalin and consists of two king soft tissue fragments, ranging from 0.2-0.4 cm. Entirely submitted in (B1). VB (under the direct supervision of a pathologist) The Gross Description was prepared using a voice recognition system. The report was reviewed for accuracy; however, sound-alike word errors, addition and/or deletions may occur. If there is any question about this report, please contact Client Services. PERFORMING LABORATORY: Technical component was performed by [facility], [address] [place] [id number] (CLIA# [id number]). Professional interpretation was performed by [facility], [address] [place] [address], [place] [address] (CLIA#: [id number]). PATIENT NAME: AMADA THOMAS PATHOLOGY DATE OF : 45 REPORT #: [id number] PHYSICIAN: KAREN PATHOLOGY PCP: MARQUITA AYON MD REPORT IS CONFIDENTIAL AND NOT TO BE RELEASED WITHOUT AUTHORIZATION [address] [address] Signed Diagnostician: Scar Kauffman MD Pathologist Electronically Signed 08/22/2023 Copies: ~ PATIENT NAME: AMADA THOMAS PATHOLOGY DATE OF : 45 REPORT #: [id number] PHYSICIAN: KAREN PATHOLOGY PCP: MARQUITA AYON MD REPORT IS CONFIDENTIAL AND NOT TO BE RELEASED WITHOUT AUTHORIZATION
== END 2023-08-20 12:51 | disposition home or self-care (01) ==
LOC: OPS 10:26 → DS 10:28 → OPS 12:00 → DS 12:00 → OPS 12:51
PROVIDERS: ATTEND Surgery
PROC: 0DBL8ZX Excision of Transverse Colon, Via Natural or Artificial Opening Endoscopic, Diagnostic (ICD-10-PCS; 2023-08-20)
PROC: 0DBH8ZX Excision of Cecum, Via Natural or Artificial Opening Endoscopic, Diagnostic (ICD-10-PCS; principal; 2023-08-20 12:00)
DX: D12.3 Benign neoplasm of transverse colon (principal); K57.30 Diverticulosis of large intestine without perforation or abscess without bleeding; K63.5 Polyp of colon; K52.9 Noninfective gastroenteritis and colitis, unspecified; K59.09 Other constipation; I10 Essential (primary) hypertension; I48.91 Unspecified atrial fibrillation; Z86.73 Personal history of transient ischemic attack (TIA), and cerebral infarction without residual deficits
CPT/HCPCS: 88305; 99153; G0500; J0690; J2250; J3010; J7121

== ENCOUNTER 2023-08-30 17:04 | Emergency (ER) | payer OTHER, MEDICARE ==
[~2023-08-30] VITALS: Ht 165.1 cm; Wt 86.3 kg
[2023-08-30 18:43] LABS: BASOPHILS 1.7 % (0-2); EOSINOPHILS 0.9 % (0-6); HEMATOCRIT 36.2 % (35.0-50.0); HEMOGLOBIN 11.7 g/dL (12.0-18.0); LYMPHOCYTES 30.5 % (24-44); MCH 29.6 (27-36); MCHC 32.4 g/dl (30-36); MCV 91.4 fl (81-99); MONOCYTES 7.1 % (0-12); NEUTROPHILS 59.8 % (39-80); PLATELET COUNT 248 K/uL (140-440); RBC 3.96 M/ul (4.3-5.7); RDW 13.4 (10.5-15.0)
[2023-08-30 18:59] LABS: ALBUMIN 3.4 g/dL (3.4-5.0); ALBUMIN/GLOBULIN RATIO 0.87 (1.1-2.4); ALCOHOL, MEDICAL <3 ng/dL (<3); ALKALINE PHOSPHATASE 66 U/L (46-116); ALT (SGPT) 14 U/L (14-59); ANION GAP 12.7 (7-21); AST (SGOT) 18 U/L (15-37); BILIRUBIN, TOTAL 0.5 ng/dL (0.2-1.0); BUN/CREATININE RATIO 35.21 (6.0-28.6); CALCIUM 9.2 mg/dL (8.5-10.1); CARBON DIOXIDE 29 mmol/L (21-32); CHLORIDE 102 mmol/L (98-107); CREATININE, SERUM 0.71 mg/dL (0.55-1.02); GLOMERULAR FILTRATION RATE,EST 87 mL/min (>60); POTASSIUM 3.7 mmol/L (3.5-5.1); PROTEIN, TOTAL 7.3 g/dL (6.4-8.2); UREA NITROGEN 25 mg/dL (7-18)
[2023-08-30 19:22] LABS: ABO A; ANTIBODY SCREEN NEGATIVE; RH NEGATIVE
[2023-08-30] MEDS ORDERED: SIMETHICONE 125 MG TABLET CHEWABLE PO ONE (20:45)
--- NOTE | 2023-08-31 11:57 | EKG ---
[facility] [address] [facility] [place], [place] [address] Signed Normal sinus rhythm with sinus arrhythmia Normal ECG When compared with ECG of 05-MAY-2023 11:39, QT has shortened Confirmed by Sylvie Booker MD ([id number]) on 08/31/2023 11:57:26 AM Electronically Signed By: SYLVIE BOOKER 08/31/23 1157 PATIENT NAME: SPAINAMADA Electrocardiogram DATE OF : 45 PHYSICIAN: SYLVIE BOOKER REPORT #: [id number] REPORT IS CONFIDENTIAL AND NOT TO BE RELEASED WITHOUT AUTHORIZATION
== END 2023-08-30 20:49 | disposition home or self-care (01) ==
LOC: ED 17:04
PROVIDERS: Emergency Medicine
DX: S20.219A Contusion of unspecified front wall of thorax, initial encounter (principal); M54.2 Cervicalgia; I10 Essential (primary) hypertension; I48.91 Unspecified atrial fibrillation; G47.30 Sleep apnea, unspecified; F32.A Depression, unspecified; E03.9 Hypothyroidism, unspecified; V43.52XA Car driver injured in collision with other type car in traffic accident, initial encounter; Z88.5 Allergy status to narcotic agent; Z88.2 Allergy status to sulfonamides; Z88.1 Allergy status to other antibiotic agents; Z88.8 Allergy status to other drugs, medicaments and biological substances; Z88.6 Allergy status to analgesic agent; Z79.01 Long term (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 of anticoagulants; Z79.82 Long term (current) use of aspirin; Z79.890 Hormone replacement therapy; Z79.899 Other long term (current) drug therapy
CPT/HCPCS: 36415; 70450; 71260; 72125; 80053; 85025; 86850; 86900; 86901; 93005; 93010; 99284-25; G0480

== ENCOUNTER 2023-12-19 16:03 | Emergency (ER) | payer OTHER, MEDICARE ==
[~2023-12-19] VITALS: Ht 165.1 cm; Wt 88.5 kg
[~2023-12-19 16:03] MED LIST changes: +WARFARIN SODIUM5 MG PO
[2023-12-19] MEDS ORDERED: AUGMENTIN 500-1 EACH PO (16:58)
[2023-12-19] MEDS ORDERED: AMOXICILLIN/CLAVULANATE K 500 MG TAB PO ONE (17:00)
[2023-12-19 17:20] VITALS: BP 130/79
== END 2023-12-19 17:20 | disposition home or self-care (01) ==
LOC: ED 16:03
DX: S61.452A Open bite of left hand, initial encounter (principal); W54.0XXA Bitten by dog, initial encounter; G47.30 Sleep apnea, unspecified; E03.9 Hypothyroidism, unspecified; I10 Essential (primary) hypertension; I48.91 Unspecified atrial fibrillation; Z88.8 Allergy status to other drugs, medicaments and biological substances; Z88.1 Allergy status to other antibiotic agents; Z88.2 Allergy status to sulfonamides; Z79.899 Other long term (current) drug therapy; Z79.82 Long term (current) use of aspirin; Z79.01 Long term (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 of anticoagulants
CPT/HCPCS: 99283

== ENCOUNTER 2024-01-18 12:57 | Inpatient (IN) | payer MEDICARE, OTHER ==
[~2024-01-18] VITALS: Ht 165.1 cm; Wt 89.4 kg
[~2024-01-18 12:57] MED LIST changes: +AUGMENTIN 500-1 EACH PO
[2024-01-18 13:15] LABS: BASOPHILS 0.9 % (0-2); EOSINOPHILS 0.9 % (0-6); HEMATOCRIT 37.1 % (35.0-50.0); HEMOGLOBIN 11.9 g/dL (12.0-18.0); LYMPHOCYTES 33.2 % (24-44); MCH 29.4 (27-36); MCHC 32.1 g/dl (30-36); MCV 91.3 fl (81-99); MONOCYTES 7.7 % (0-12); NEUTROPHILS 57.3 % (39-80); PLATELET COUNT 264 K/uL (140-440); RBC 4.06 M/ul (4.3-5.7); RDW 13.6 (10.5-15.0)
[2024-01-18] MEDS ORDERED: SODIUM CHLORIDE 0.9% 1,000 ML IV PRN (13:15)
[2024-01-18 13:17] LABS: INR 2.31 (0.80-1.30); PROTIME 24.4 Sec (11.2-14.2)
[2024-01-18 13:26] LABS: ALBUMIN 3.8 g/dL (3.4-5.0); ALBUMIN/GLOBULIN RATIO 1.03 (1.1-2.4); ANION GAP 13.1 (7-21); BILIRUBIN, TOTAL 0.6 ng/dL (0.2-1.0); BUN/CREATININE RATIO 23.33 (6.0-28.6); CALCIUM 8.9 mg/dL (8.5-10.1); CREATININE, SERUM 0.9 mg/dL (0.55-1.02); POTASSIUM 4.1 mmol/L (3.5-5.1); PROTEIN, TOTAL 7.5 g/dL (6.4-8.2)
[2024-01-18 13:52] LABS: BILIRUBIN, URINE NEGATIVE (negative); BLOOD/HGB, URINE MODERATE (Negative); KETONE, URINE SMALL (Negative); LEUK ESTERASE, URINE SMALL (negative); NITRITE, URINE NEGATIVE (negative); PH, URINE 8.5 (5-7)
[2024-01-18 14:13] LABS: BACTERIA, URINE 1+ /hpf (negative); CASTS, URINE NONE SEEN \\lpf; COLLECTION TYPE, URINE CLEAN CATCH; CRYSTALS, URINE NONE SEEN (0-1+); WHITE BLOOD CELLS, URINE 21-40 /HPF (0-5)
[2024-01-18 14:14] LABS: REFLEX CULTURE, URINE Yes (No)
[2024-01-18] MEDS ORDERED: CEFTRIAXONE/SODIUM CHLORIDE 1 GM/100 ML PIGGYBACK IV ONE ×2 (14:30→19:15)
[2024-01-18] MEDS ORDERED: ondansetron HCL 4 MG/2 ML VIAL IV PRN (14:45)
[2024-01-18] MEDS ORDERED: ACETAMINOPHEN 325 MG TAB PO PRN (14:45)
[2024-01-18] MEDS ORDERED: OMEPRAZOLE20 MG PO (15:27)
[2024-01-18 15:37] VITALS: BP 161/71
--- NOTE | 2024-01-18 15:45 | NUR ---
TURNED PATIENT TO HER SIDE JULIANA LAU TO CHANGE PT DEPENDS AND NOTICED WHILE DOING CARES THAT PT HAD A SORE ON HER BOTTON NEAR HER COCCYX AREA. ALLEVYN WAS PLACED TO PREVENT RISK OF TEARING. PT ALSO HAD PURWICK PLACED DUE TO INCONTINENCE. PT ALSO HAS SCD'S ON. NO OTHER CARES NEEDED OR REQUESTED AT THIS TIME. CALL LIGHT WITHIN REACH
--- NOTE | 2024-01-18 17:02 | NUR ---
SILVICULTURE FORESTER AND RN CHANGED PT BRIEF, APPLIED BARRIER CREAM, PERFORMED NINA CARE, AND PLACED A PUREWICK ON THE PT. PT HAS SOME REDDNESS ON HER BACKSIDE RN IS AWARE. PT STATES NO FURTHER COMPLAINTS OR CONCERNS AND CALL LIGHT IS WITHIN REACH
[2024-01-18 18:33] VITALS: BP 121/67
--- NOTE | 2024-01-18 19:30 | NUR ---
REPORT RECEIVED FROM DAY SHIFT RN. PT LYING IN BED ALERT AND ORIENTED. DENIES NEEDS. WHITE BOARD UPDATED. CALL LIGHT IN REACH.
[2024-01-18 20:56] VITALS: BP 123/60
[2024-01-18] MEDS ORDERED: ATORVASTATIN 40 MG TAB PO SCH (21:00)
[2024-01-18] MEDS ORDERED: MELATONIN 3 MG TAB PO PRN (21:00)
[2024-01-18] MEDS ORDERED: MICONAZOLE NITRATE 1 EA BTL TOP SCH (21:00)
--- NOTE | 2024-01-18 21:41 | NUR ---
EVENING ASSESSMENT COMPLETE. SCHEDULED MEDS ADMIN PER EMAR. PT REPORTS HEADACHE PAIN 5/10. PRN FOR PAIN ADMIN PER EMAR. NO SWALLOWING ISSUES. RIGHT SIDE WEAKNESS NOTED. PT REPORTS CHRONIC TINGLING IN RIGHT HAND THAT IS WORSENED AND GOING UP RIGHT ARM. NO FACIAL DROOP NOTED. PT DENIES VISUAL DISTURBANCES. TELE #[address] SR. HR 60'S. VISITOR AT BEDSIDE. PT DENIES QUESTIONS OR CONCERNS. CALL LIGHT IN REACH.
[2024-01-19] VITALS (10 sets, daily range): BP systolic 110–144; BP diastolic 59–78
--- NOTE | 2024-01-19 00:27 | NUR ---
CALL LIGHT ANSWERED. FRESH WATER PROVIDED PER REQUEST. PT REPORTS SHE IS COMFORTABLE AT THIS TIME. NO FURTHER NEEDS.
--- NOTE | 2024-01-19 02:54 | NUR ---
VS AND I&O OBTAINED, WNL. NEURO ASSESSMENT UNCHANGED. TELE #[address] NSR. HR 50-60'S. PT REPORTS SLIGHT HEADACHE. DENIES PRN FOR PAIN WHEN OFFERED. WARM BLANKET PROVIDED. NO FURTHER NEEDS. BED ALARM FOR SAFETY. CALL LIGHT IN REACH.
--- NOTE | 2024-01-19 05:10 | NUR ---
Provided Pt with warm blanket and fresh ice water. No other needs expressed by Pt. Call light left in reach.
--- NOTE | 2024-01-19 05:23 | NUR ---
VS AND I&O OBTAINED, WNL. NEW PUREWICK PLACED AFTER NINA CARE. PT ABLE TO ASSIST WITH CARES. SLIGHT RIGHT SIDE WEAKNESS NOTED. SCHEDULED MEDS ADMIN PER EMAR. NO SWALLOWING ISSUES NOTED. NO FURTHER NEEDS. CALL LIGHT IN REACH.
[2024-01-19 05:56] LABS: BASOPHILS 0.7 % (0-2); HEMATOCRIT 35.9 % (35.0-50.0); HEMOGLOBIN 11.6 g/dL (12.0-18.0); LYMPHOCYTES 41.9 % (24-44); MCH 29.5 (27-36); MCHC 32.4 g/dl (30-36); MONOCYTES 10.6 % (0-12); NEUTROPHILS 43.8 % (39-80); PLATELET COUNT 233 K/uL (140-440); RBC 3.94 M/ul (4.3-5.7); RDW 13.5 (10.5-15.0)
[2024-01-19] MEDS ORDERED: LEVOTHYROXINE SODIUM 100 MCG TAB PO SCH (06:00)
[2024-01-19 06:09] LABS: INR 2.56 (0.80-1.30); PROTIME 26.5 Sec (11.2-14.2)
[2024-01-19 06:17] LABS: ALBUMIN 3.2 g/dL (3.4-5.0); ALBUMIN/GLOBULIN RATIO 0.97 (1.1-2.4); ANION GAP 11.8 (7-21); BILIRUBIN, TOTAL 0.4 ng/dL (0.2-1.0); BUN/CREATININE RATIO 23.8 (6.0-28.6); CALCIUM 8.1 mg/dL (8.5-10.1); CREATININE, SERUM 0.63 mg/dL (0.55-1.02); MAGNESIUM 2.2 mg/dL (1.8-2.4); PHOSPHORUS, INORGANIC 3.5 mg/dL (2.5-4.9); POTASSIUM 3.8 mmol/L (3.5-5.1); PROTEIN, TOTAL 6.5 g/dL (6.4-8.2)
[2024-01-19 06:35] LABS: CHOLESTEROL/HDL RATIO 2.9
--- NOTE | 2024-01-19 07:05 | NUR ---
REPORT RECEIVED FROM TERRELL MCCURDY, ALL QUESTIONS ANSWERED. PT RESTING IN BED WITH EYES CLOSED, RESPIRATIONS EVEN AND UNLABORED. CALL LIGHT IN REACH.
[2024-01-19] MEDS ORDERED: PANTOPRAZOLE SODIUM 40 MG TABEC PO SCH (07:30)
--- NOTE | 2024-01-19 07:46 | NUR ---
Board has been updated and call light has been placed within reach. No request from patient at this time
--- NOTE | 2024-01-19 08:17 | NUR ---
MORNING ASSESSMENT COMPLETE. PT AWAKE IN BED. STATES SHE HAD A GOOD NIGHT. C/O HEADACHE RATING 5/10 PAIN, DENIES NEED FOR INTERVENTION AT THIS TIME. STATES HEADACHE HAS BEEN CONSISTENT FOR APPROX. 1 WEEK. RIGHT SIDED WEAKNESS SINCE PREVIOUS STROKE SHE RECALLS FROM 2022. REPORTS TINGLING ON RIGHT UPPER EXTREMITY, ALSO RESIDUAL FROM PREVIOUS STROKE. RIDE SIDE PLANT CARE WORKER WEAKER THAN LEFT. ALERT AND ORIENTED X4. CLEAR LUNG SOUNDS. PT DENIES FURTHER NEEDS AT THIS TIME. WAITING FOR BREAKFAST. DISCUSSED PLAN OF DAY AND PHYSICAL THERAPY. CALL LIGHT IN REACH.
--- NOTE | 2024-01-19 08:42 | NUR ---
PT SITTING UP IN BED EATING BREAKFAST. PT STATES PAIN IS 7/10 IN HER HIPS, REQUESTS TO BE REPOSITIONED AND GET PRN PAIN MEDICATION, GIVEN, PT REPOSITIONED WITH R HIP FLOATED. PERRLA. PT FORGETFUL, BUT ALERT AND ORIENTED TO PERSON, PLACE, AND EVENT, DISORIENTED TO DATE. GENERALIZED EDEMA PRESENT IN BLE. PT CURRENTLY REFUSING SCDs. PT TOLERATES REGULAR DIET TRAY AND PO MEDICATIONS W/O DIFFICULTY. PUREWICK IN PLACE. PT STATES NO NEEDS AT THIS TIME, ASPIRATION PRECAUTIONS IN PLACE, CALL LIGHT WITHIN REACH.
[2024-01-19] MEDS ORDERED: DULOXETINE HCL 60 MG CAP PO SCH (09:00)
[2024-01-19] MEDS ORDERED: CEFTRIAXONE/SODIUM CHLORIDE 2 GM/100 ML PIGGYBACK IV SCH (09:00)
[2024-01-19] MEDS ORDERED: ASPIRIN 81 MG TABEC PO SCH (09:00)
--- NOTE | 2024-01-19 11:45 | NUR ---
PT AWAKE IN BED, DENIES NEEDS AT THIS TIME DISCUSSED PHYSICAL THERAPY, PT READY. PHYSICAL THERAPIST AWARE AND IN ROOM.
[2024-01-19] MEDS ORDERED: PHARMACY RENAL DOSE ADJUSTMENT 1 DOSE MISC PO SCH (12:00)
[2024-01-19] MEDS ORDERED: MECLIZINE HCL 25 MG TAB PO PRN (13:45)
--- NOTE | 2024-01-19 15:22 | NUR ---
PT AWAKE IN BED VISITING FAMILY. RIGHT SIDED WEAKNESS ON BOTH UPPER AND LOWER EXTERMITIES NOTED SAME PREVIOUS. PT STATES WEKANESS IS MORE THAN BASELINE. PT ALERT AND ORIENTED, DENIES FURTHER NEEDS AT THIS TIME. CALL LIGHT IN REACH.
[2024-01-19] MEDS ORDERED: WARFARIN SOD 5 MG TAB PO SCH (16:00)
[2024-01-19] MEDS ORDERED: WARFARIN SOD 7.5 MG TAB PO SCH (16:00)
[2024-01-19] MEDS ORDERED: WARFARIN PER PHARMACY PROTOCOL PO SCH (16:00)
--- NOTE | 2024-01-19 17:12 | NUR ---
PT UP TO COMMODE FOR BM. PT BACK TO BED, NEW PUREWICK PLACED. DENIES FURTHER NEEDS AT THIS TIME. CALL LIGHT IN REACH.
--- NOTE | 2024-01-19 19:26 | NUR ---
REPORT RECEIVED FROM DAY SHIFT RN. PT LYING IN BED ALERT AND ORIENTED. VISITORS AT BEDSIDE. DENIES NEEDS. WHITE BOARD UPDATED. CALL LIGHT IN REACH.
--- NOTE | 2024-01-19 21:38 | NUR ---
EVENING ASSESSMENT COMPLETE. SCHEDULED MEDS ADMIN PER EMAR. PT REPORTS HEADACHE PAIN. DENIES PRN FOR PAIN WHEN OFFERED. DENIES FEELING DIZZY AT REST. NEURO CHECK COMPLETE. RIGHT SIDE WEAKNESS NOTED. PT REPORTS CONTINUED TINGLING IN RUE. DENIES VISUAL DISTURBANCES. NEW PUREWICK PLACED AFTER NINA CARE. DIME SIZE OPEN AREA NOTED ON LEFT INTERGLUTEAL CLEFT THAT PT REPORTS IS CHRONIC. SKIN CARE PROVIDED AND BARRIER CREAM APPLIED. PT ENCOURAGED TO TURN IN BED TO RELIEVE PRESSURE. PT DENIES QUESTIONS OR CONCERNS. CALL LIGHT IN REACH.
--- NOTE | 2024-01-19 22:32 | EKG ---
[facility] [address] [facility] [place] [address] Signed Normal sinus rhythm Normal ECG When compared with ECG of 30-AUG-2023 17:24, No significant change was found Confirmed by Sherley Schwartz MD () on 01/19/2024 10:32:34 PM Electronically Signed By: SHERLEY SCHWARTZ MD 01/19/242231 PATIENT NAME: AMADA SPAIN CHRISSY Electrocardiogram DATE OF : 45 PHYSICIAN: SHERLEY SCHWARTZ MD REPORT #: [id number] REPORT IS CONFIDENTIAL AND NOT TO BE RELEASED WITHOUT AUTHORIZATION
[2024-01-20] VITALS (7 sets, daily range): BP systolic 125–147; BP diastolic 54–83
--- NOTE | 2024-01-20 | NUR ---
PT RESTING IN BED WITH EYES CLOSED. RESPIRATIONS EVEN. TELE #8. SR. HR 60'S.
--- NOTE | 2024-01-20 02:44 | NUR ---
PT RESTING WITH EYES CLOSED. AWAKENS EASILY. VS OBTAINED, WNL. MRI SCREENING COMPLETE. NEURO ASSESSMENT UNCHANGED. PT DENIES NEEDS. CALL LIGHT IN REACH.
[2024-01-20 05:44] LABS: BASOPHILS 1.3 % (0-2); EOSINOPHILS 3.4 % (0-6); HEMATOCRIT 34.9 % (35.0-50.0); HEMOGLOBIN 11.5 g/dL (12.0-18.0); LYMPHOCYTES 34.1 % (24-44); MCH 29.8 (27-36); MCHC 32.8 g/dl (30-36); MCV 90.7 fl (81-99); MONOCYTES 10.6 % (0-12); NEUTROPHILS 50.6 % (39-80); PLATELET COUNT 228 K/uL (140-440); RBC 3.85 M/ul (4.3-5.7); RDW 13.5 (10.5-15.0)
--- NOTE | 2024-01-20 05:50 | NUR ---
VS AND I&O OBTAINED, WNL. NEURO ASSESSMENT UNCHANGED. NEW PUREWICK PLACED AFTER NINA CARE. PT ABLE TO ASSIST WITH CARES. PICTURE PLACED ON CHART OF OPEN AREA ON LEFT INTERGLUTEAL CLEFT. CONSENT SIGNED FOR PICTURE. SCHEDULED MEDS ADMIN PER EMAR. NO FURTHER NEEDS.
[2024-01-20 06:01] LABS: INR 2.62 (0.80-1.30)
[2024-01-20 06:09] LABS: ALBUMIN/GLOBULIN RATIO 0.83 (1.1-2.4); ANION GAP 11.2 (7-21); BILIRUBIN, TOTAL 0.2 ng/dL (0.2-1.0); BUN/CREATININE RATIO 24.28 (6.0-28.6); CALCIUM 8.6 mg/dL (8.5-10.1); CREATININE, SERUM 0.7 mg/dL (0.55-1.02); POTASSIUM 4.2 mmol/L (3.5-5.1); PROTEIN, TOTAL 6.6 g/dL (6.4-8.2)
--- NOTE | 2024-01-20 07:39 | NUR ---
PT RESTING EYES CLOSED AT TIME OF SHIFT EXCHANGE, LEFT UNDISTURBED. FRESH H20 AND CALL LIGHT AT BEDSIDE.
--- NOTE | 2024-01-20 07:53 | NUR ---
UR CLINICAL REVIEW: 2 MN FOR [facility] INPT ADMISSION CRITERIA MEDICARE OBS TO INPT 01/19/24 @ 1343 ORDER MATCHES REG NO PA REQUIRED PER MEDICARE GUIDELINES. DISCHARGE PENDING FURTHER EVALUATION OF NEEDS
--- NOTE | 2024-01-20 08:09 | NUR ---
PATIENT RESTING IN BED AT THIS TIME. CALL LIGHT WITHIN REACH, NO FURTHER NEEDS AT THIS TIME.
--- NOTE | 2024-01-20 09:19 | NUR ---
PT EATS 100% OF MORNING MEAL. NOTIFIED MRI WILL BE AT 1000. DC FOUNDER PRESIDENT AND CEO IN TO DISCUSS DC PLANS ALL QUESTIONS ANSWERED. PT CONFIRMS SHE WANTS TO GO HOME DOES NOT WANT PLACEMENT.
--- NOTE | 2024-01-20 09:53 | NUR ---
PATIENT IN BED AT THIS TIME. VITALS AND I&O'S CHARTED. CALL LIGHT WITHIN REACH, NO FURTHER NEEDS AT THIS TIME.
--- NOTE | 2024-01-20 09:57 | NUR ---
PT DOWN TO MRI VIA W/C
--- NOTE | 2024-01-20 11:05 | NUR ---
PATIENT ALERT AND ORIENTED, SITTING UP IN BED. VERIFIED DEMOGRAPHICS. PATIENT LIVES ALONE IN SINGLE STORY HOUSE, DOES HAVE 1 STEP INSIDE TO GET INTO 2 ROOMS. STATES SHE HAS A WALKER AND 2 CANES AVAILABLE AT HOME. SHE ALSO USES A CPAP, NO OTHER DME. STATES SHE HAS A NEIGHBOR WHO IS ABLE TO CHECK ON HER OFTEN. STATES SHE NORMALLY DRIVES, BUT WILL LIKELY NOT DRIVE AT THIS TIME DUE TO DIZZINESS. PATIENT HAS BEEN INFORMED PLACEMENT OR SNF MAY BE A BETTER OPTION. SHE IS NOT INTERESTED IN EITHER AND STATES SHE WOULD PREFER HOME HEALTH THRU [facility] IF POSSIBLE. ALSO STATES SHE HAS NO [employer] BENEFITS AVAILABLE UNTIL APRIL. 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 DENIES OTHER NEEDS AT HOME AT THIS TIME.
--- NOTE | 2024-01-20 11:17 | NUR ---
PT UP WALKING WITH P/T.
--- NOTE | 2024-01-20 11:31 | NUR ---
ATTEMPTED TO VISIT DURING SPIRITUAL CARE ROUNDS. PT WORKING WITH PHYSICAL THERAPY. DID NOT INTERRUPT. PROVIDED PRAYER. WILL RETURN CIRCUMSTANCES ALLOW.
--- NOTE | 2024-01-20 12:05 | NUR ---
PATIENT IN CHAIR AT THIS TIME. SPORTS UMPIRE CHANGED PUREWICK AT 1200 AND CHANGED BREIF AT THIS TIME. CALL LIGHT WITHIN REACH, NO FURTHER NEEDS AT THIS TIME.
--- NOTE | 2024-01-20 12:08 | NUR ---
INFORMED BY DR. SCHWARTZ, PATIENT IS NOW AGREEABLE TO SNF. WOULD LIKE TO STAY IN TOWN IF POSSIBLE. REFERRAL FAXED TO [facility].
--- NOTE | 2024-01-20 13:55 | NUR ---
PATIENT IN BED AT THIS TIME. VITALS AND I&O'S CHARTED. CALL LIGHT WITHIN [facility], NO FURTHER NEEDS AT THIS TIME.
--- NOTE | 2024-01-20 14:33 | NUR ---
PT CONTINUES UP IN BED AT THIS TIME WATCHING TV. DENIES ANY CHANGE IN NEURO STATUS, ASSESSMENT UNCHANGED. DC TERRAZZO LABORER IN TO SPEAK WITH PT R/T DC PLANS BEING MADE.
--- NOTE | 2024-01-20 14:41 | NUR ---
SPOKE WITH PATIENT REGARDING SNF. STATES IF [facility] IS UNABLE TO ACCEPT HER, SHE IS WILLING TO GO TO [facility].
--- NOTE | 2024-01-20 15:18 | NUR ---
PT RESTING IN BED WATCHING TV PLAYING GAMES ON PHONE. STATES SHE STILL HAS A HEADACHE BUT REFUSES TYLENOL. STATES SHE JUST DOESN'T WANT TO TAKE ANY.
[2024-01-20] MEDS ORDERED: WARFARIN SOD 5 MG TAB PO SCH (16:00)
--- NOTE | 2024-01-20 16:56 | NUR ---
PATIENT IN BED AT THIS TIME. SAP ABAP PROGRAMMER EMPTIED CANISTER AND CHARTED VOIDINGS ON THE BOARD. PATIENT REFUSED TO GET INTO [employer] FOR DINNER. CALL LIGHT WITHIN REACH, NO FURTHER NEEDS AT THIS TIME.
--- NOTE | 2024-01-20 17:54 | NUR ---
PT EATS 100% OF EVENING MEAL DENIES NEED OF MORE ITEMS. CONTINUES UP IN BED WATCHING TV DENIES DISCOMFORTS OR NEEDS OF.
--- NOTE | 2024-01-20 19:11 | NUR ---
REPORT RECEIVED FROM DAY SHIFT RN. PT LYING IN BED ALERT AND ORIENTRED. DENIES NEEDS. WHITE BOARD UPDATED. CALL LIGHT IN REACH.
--- NOTE | 2024-01-20 21:00 | NUR ---
EVENING ASSESSMENT COMPLETE. SCHEDULED MEDS ADMIN PER EMAR. PT REPORTS HEADACHE PAIN, REFUSES PRN FOR PAIN WHEN OFFERED. RIGHT SIDE WEAKNESS NOTED. TINGLING IN RUE REMAINS. PT DENIES FEELING DIZZY AT REST. PT INCONTINENT OF LARGE AMOUNT OF URINE. PUREWICK PLACED AFTER NINA CARE FOR THE NIGHT. BARRIER CREAM APPLIED TO OPEN AREA ON LEFT INTERGLUTEAL CLEFT. PT ABLE TO BOOST SELF UP IN BED AND ASSIST WITH CARES. PT DENIES QUESTIONS OR CONCERNS. CALL LIGHT IN REACH.
--- NOTE | 2024-01-20 22:28 | NUR ---
PT REPORTS HEADACHE PAIN 12/29. PRN FOR PAIN ADMIN PER EMAR. NO FURTHER NEEDS. CALL LIGHT IN REACH.
[2024-01-21] VITALS (7 sets, daily range): BP systolic 114–152; BP diastolic 56–77
--- NOTE | 2024-01-21 00:30 | NUR ---
CALL LIGHT ANSWERED. SBA TO BEDSIDE COMMODE. PATIENT HAD A PIECES OF HARD STOOL LIKE PEBBLE SIZE. V/S AND I&O'S COMPLETED. EMPTIED CANISTER WITH 400ML LIGHT YELLOW URINE. FRESH WATER REFILLED. CALL LIGHT AND SIDE TABLE WITHIN REACH.
--- NOTE | 2024-01-21 03:31 | NUR ---
PT RESTING IN BED WITH EYES CLOSED LYING ON LEFT SIDE. RESPIRATIONS EVEN. CALL LIGHT IN REACH.
--- NOTE | 2024-01-21 05:47 | NUR ---
PT RESTING WITH EYES CLOSED. AWAKENS EASILY. VS AND I&O OBTAINED. PT DENIES PAIN AT THIS TIME. NEW PUREWICK PLACED AFTER NINA CARE. PT ABLE TO REPOSITION SELF IN BED. SCHEDULED MEDS ADMIN PER EMAR. LAB IN ROOM FOR MORNING DRAW.
[2024-01-21 05:58] LABS: INR 2.63 (0.80-1.30); PROTIME 27.1 Sec (11.2-14.2)
--- NOTE | 2024-01-21 08:13 | NUR ---
CYTOTECHNOLOGIST/HISTOTECHNOLOGIST ASSISTED PATIENT TO CHAIR FOR BREAKFAST. CYTOTECHNOLOGIST/HISTOTECHNOLOGIST ALSO REMOVED PUREWICK AND GAVE PATIENT A CLEAN PULL UP. CALL LIGHT WITHIN REACH, NO FURTHER NEEDS AT THIS TIME.
--- NOTE | 2024-01-21 08:58 | NUR ---
Patient sitting up in chair awake, alert and oriented x4, no distress. Patient reports continued numbness/tingling in right hand/arm. Speech is appropriate and clear. Patient is eating her breakfast with no difficulty. IV abx started per provider order. No current needs, personal supplies and call light within reach.
--- NOTE | 2024-01-21 09:12 | NUR ---
CALLED TIARA AT [facility] TO REQUEST ANSWER REGARDING SNF STAY. NO ANSWER. LEFT MESSAGE.
--- NOTE | 2024-01-21 09:54 | NUR ---
SPOKE WITH TIARA AT [facility]. STATES THEY ARE CURRENTLY REVIEWING THE CHART FOR SNF PLACEMENT.
--- NOTE | 2024-01-21 10:36 | NUR ---
PATIENT IN BED AT THIS TIME. CALL LIGHT WITHIN REACH, NO FURTHER NEEDS AT THIS TIME.
[2024-01-21] MEDS ORDERED: IBLOOD GLUCOSE TEST STRIP 1 EA TEST XX SCH (12:00)
[2024-01-21] MEDS ORDERED: Insulin Regular, Human 100 UNIT/ML ML SUB-Q SCH (12:00)
[2024-01-21] MEDS ORDERED: GLUCAGON,HUMAN RECOMBINANT 1 MG/ML VIAL SUB-Q PRN (12:00)
[2024-01-21] MEDS ORDERED: DEXTROSE 50% 50 ML SYR IV PRN ×2 (12:00)
[2024-01-21] MEDS ORDERED: DEXTROSE 5% 1,000 ML IV PRN (12:00)
[2024-01-21] MEDS ORDERED: IBLOOD GLUCOSE TEST STRIP 1 EA TEST XX PRN (12:00)
--- NOTE | 2024-01-21 13:30 | NUR ---
PATIENT SITTING UP IN RECLINER EATING LUNCH, HAS NO REQUESTS AT THIS TIME. PATIENT IS ALERT AND ORIENTED, NOTED TO BE EATING USING RIGHT HAND WITH UTENSIL, NO DEFICIT NOTED WHILE OBSERVING. REPORT FROM Celestina PIERRE RN TO ASSUME CARE.
--- NOTE | 2024-01-21 14:04 | NUR ---
PATIENT LEAVING UNIT NOW FOR IMAGING.
--- NOTE | 2024-01-21 14:25 | NUR ---
PATIENT UP TO BATHROOM, SBA. PATIENT DID ORAL CARE AT SINK. PATIENT NOW TO BED, SBA. CALL LIGHT IN REACH. NO FURTHER NEEDS AT THIS TIME.
[2024-01-21] MEDS ORDERED: WARFARIN SOD 7.5 MG TAB PO SCH (16:00)
--- NOTE | 2024-01-21 16:28 | NUR ---
PATIENT IN BED AT THIS TIME. CALL LIGHT WITHIN REACH, NO FURTHER NEEDS AT THIS TIME.
--- NOTE | 2024-01-21 19:36 | NUR ---
REPORT RECEIVED FROM DAY SHIFT RN. PT SITTING IN RECLINER ALERT AND ORIENTED. DENIES NEEDS. WHITE BOARD UPDATED. CALL LIGHT IN REACH.
[2024-01-21] MEDS ORDERED: POLYETHYLENE GLYCOL 3350 1 PACKET PO SCH (21:00)
[2024-01-21] MEDS ORDERED: SENNOSIDES/DOCUSATE 1 EA TAB PO SCH (21:00)
--- NOTE | 2024-01-21 22:46 | NUR ---
EVENING ASSESSMENT COMPLETE. SCHEDULED MEDS ADMIN PER EMAR. PT REPORTS 6/10 HEADACHE PAIN. PT REFUSES PRN FOR PAIN WHEN OFFERED. RIGHT SIDE WEAKNESS NOTED. PT REPORTS CONTINUED TINGLING IN RIGHT HAND THAT RADIATES UP TO HER SHOULDER. NEW IV PLACED IN RIGHT FOREARM X 1 ATTEMPT. IV IN RIGHT AC DC'D WNL. TIP INTACT. TELE #8. HR 60'S. PT DENIES QUESTIONS OR CONCERNS. CALL LIGHT IN REACH.
--- NOTE | 2024-01-21 23:47 | NUR ---
CALL LIGHT ANSWERED. pt COMPLAINS OF 7-8/10 PAIN, HEADACHE AND NECK PAIN. PRN TYLENOL ADMINISTERED. CALL LIGHT IN REACH.
[2024-01-22] VITALS (8 sets, daily range): BP systolic 121–148; BP diastolic 60–76
--- NOTE | 2024-01-22 01:30 | NUR ---
PT AWAKE IN BED PLAYING ON PHONE. VS OBTAINED, WNL. PT REPORTS HEADACHE PAIN IMPROVED. FRESH WATER PROVIDED. NO FURTHER NEEDS.
--- NOTE | 2024-01-22 03:39 | NUR ---
PT RESTING IN BED LYING ON LEFT SIDE WITH EYES CLOSED. RESPIRATIONS EVEN. CALL LIGHT IN REACH.
--- NOTE | 2024-01-22 05:51 | NUR ---
VS AND I&O OBTAINED. NEW PUREWICK PLACED AFTER NINA CARE. PT ABLE TO REPOSITION SELF IN BED. SCHEDULED MEDS ADMIN PER EMAR. PT DENIES NEEDS. CALL LIGHT IN REACH.
[2024-01-22 06:04] LABS: INR 2.39 (0.80-1.30); PROTIME 25.1 Sec (11.2-14.2)
--- NOTE | 2024-01-22 07:00 | NUR ---
REPORT RECEIVED FROM SUPERVISOR RECLAMATION CALLI TEJADA. PATIENT IS LYING IN BED AND TALKING TO SOMEONE ON THE PHONE. PATIENT STATED NO NEEDS AT THIS TIME. CALL LIGHT AND PERSONAL BELONGINGS ARE WITHIN REACH.
--- NOTE | 2024-01-22 08:02 | NUR ---
0900 MEDICATIONS ADMINISTERED PER THE EMAR. PATIENT REFUSED DESENEX POWDER DUE TO NOT HAVING ANY REDNESS. PUREWICK REMOVED AT THIS TIME BY DARKROOM TECHNICIAN. IV FLUSHED WITH 10 ML NORMAL SALINE. IV DRESSING IS CLEAN, DRY, AND INTACT. PATIENT STATED NO FURTHER NEEDS AT THIS TIME, CALL LIGHT AND PERSONAL BELONGINGS ARE WITHIN REACH.
--- NOTE | 2024-01-22 08:17 | NUR ---
PATIENT IN BED AT THIS TIME. CALL LIGHT WITHIN REACH, NO FURTHER NEEDS AT THIS TIME.
--- NOTE | 2024-01-22 09:40 | NUR ---
PATIENT IS SPEAKING WITH CASE MANAGEMENT AT THIS TIME.
--- NOTE | 2024-01-22 10:02 | NUR ---
PATIENT IN BED AT THIS TIME. VITALS AND I&O'S CHARTED. CALL LIGHT WITHIN REACH, NO FURTHER NEEDS AT THIS TIME.
--- NOTE | 2024-01-22 10:41 | NUR ---
TRINA AND LLUVIA FAXED TO [facility].
--- NOTE | 2024-01-22 10:45 | NUR ---
FULL ASSESSMENT COMPLETE AND DOCUMENTED IN THE CHART. PATIENT IS ALERT AND JUST FINISHED IN THE BATHROOM AND HAD A BOWEL MOVEMENT. PATIENT USES A CANE FOR AMBULATING WITH STAND BY ASSIST. LUNG SOUNDS ARE CLEAR IN ALL LUNG ARIZMENDI BILATERALLY AND THE PATIENT IS ON ROOM AIR. CARDIAC WITH NORMAL S1 AND S2 ON AUSCULTATION. PATIENT IS ON TELEMETRY NUMBER 8 AND IN NORMAL SINUS RHYTHM. HR IS 69. SENSATION INTACT WITH NO COMPLAINTS OF NUMBNESS AND TINGLING. BOWEL TONES ARE ACTIVE IN ALL FOUR QUADRANTS. PATIENT IS ON A REGULAR DIET. IV SITE FLUSHED WITH 10 ML NORMAL SALINE. IV DRESSING IS CLEAN, DRY, AND INTACT. SKIN WITH SCATTERED BRUISING ON THE ARMS. LEFT GLUTEAL CLEFT WITH A CLOSED WOUND. RN PLACED BARRIER CREAM ON THE AREA AT THIS TIME. PATIENT WITH A HEADAHCE BUT IS NOT REQUESTING PAIN MEDICATION AT THIS TIME. PATIENT STATED NO FURTHER NEEDS, CALL LIGHT AND PERSONAL BELONGINGS ARE WITHIN REACH.
--- NOTE | 2024-01-22 11:18 | NUR ---
PATIENT IS WALKING IN THE HALLWAY WITH PT AT THIS TIME.
--- NOTE | 2024-01-22 11:59 | NUR ---
PATIENT IS SITTING UPRIGHT IN THE CHAIR AND WAITING FOR LUNCH. NIH STROKE SCALE COMPLETE AND THE PATIENT SCORED A 1 DUE TO BEST GAZE. PATIENT STATED NO NEEDS AT THIS TIME, CALL LIGHT AND PERSONAL BELONGINGS ARE WITHIN REACH.
--- NOTE | 2024-01-22 12:10 | NUR ---
RN GAVE REPORT TO CLAUDIA AT [facility]. ALL QUESTIONS AND CONCERNS ANSWERED AT THIS TIME. CALL ENDED.
--- NOTE | 2024-01-22 12:50 | NUR ---
PATIENT IV SITE REMOVED WITH THE CATHETER TIP INTACT. PATIENT TOLERATED WELL. PATIENT IS FINISHING UP HER LUNCH NOW. PATIENT WITH NO NEEDS AT THIS TIME, CALL LIGHT AND PERSONAL BELONGINGS ARE WITHIN REACH.
--- NOTE | 2024-01-22 13:16 | NUR ---
VISITED DURING SPIRITUAL CARE ROUNDS. PT TALKING ON PHONE BUT GREETED ME WARMLY. GREETED PT AND PERSON ON PHONE. PT EXPRESSED GRATITUDE.
[2024-01-22] MEDS ORDERED: WARFARIN SOD 7.5 MG TAB PO SCH (16:00)
[2024-01-26] MEDS ORDERED: SENOKOT8.6 MG PO (10:54)
[2024-01-26] MEDS ORDERED: OXYCODONE HCL5 M1 PO (13:43)
== END 2024-01-22 14:29 | DRG 69 ==
LOC: ED 12:57 → MS 14:42
PROVIDERS: Emergency Medicine; ADMIT Family Medicine; ATTEND Internal Medicine
DX: G45.9 Transient cerebral ischemic attack, unspecified (principal); N39.0 Urinary tract infection, site not specified; I48.91 Unspecified atrial fibrillation; G47.30 Sleep apnea, unspecified; E03.9 Hypothyroidism, unspecified; F32.A Depression, unspecified; M54.2 Cervicalgia; Z96.653 Presence of artificial knee joint, bilateral; Z86.73 Personal history of transient ischemic attack (TIA), and cerebral infarction without residual deficits; Z88.8 Allergy status to other drugs, medicaments and biological substances; Z88.6 Allergy status to analgesic agent; Z88.2 Allergy status to sulfonamides; Z79.01 Long term (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 of anticoagulants; Z79.84 Long term (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 of oral hypoglycemic drugs; Z79.82 Long term (current) use of aspirin; Z79.890 Hormone replacement therapy
CPT/HCPCS: 36415; 70450; 70496; 70498; 70551; 71045; 72125; 80053; 80061; 81001; 83036; 83735; 84100; 84484; 85025; 85610; 87077; 87088; 87186; 93005; 93010; 93306; 96365; 96366; 97110; 97116; 97161; 97165; 97530; 99285-25; A9270; G0378; J0696

== ENCOUNTER 2024-02-06 18:07 | Emergency (ER) | payer MEDICARE, OTHER ==
[~2024-02-06] VITALS: Ht 165.1 cm; Wt 90.2 kg
[~2024-02-06 18:07] MED LIST changes: +OXYCODONE HCL5 M1 PO; +SENOKOT8.6 MG PO
[2024-02-06] MEDS ORDERED: MIRALAX119 GM PO (18:44)
[2024-02-06 20:20] VITALS: BP 143/82
== END 2024-02-06 20:20 | disposition home or self-care (01) ==
LOC: ED 18:07
DX: S09.90XA Unspecified injury of head, initial encounter (principal); I10 Essential (primary) hypertension; W06.XXXA Fall from bed, initial encounter; Z86.73 Personal history of transient ischemic attack (TIA), and cerebral infarction without residual deficits; Z96.653 Presence of artificial knee joint, bilateral; Z88.8 Allergy status to other drugs, medicaments and biological substances; Z88.6 Allergy status to analgesic agent; Z79.890 Hormone replacement therapy; Z79.01 Long term (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 of anticoagulants; Z79.899 Other long term (current) drug therapy
CPT/HCPCS: 70450

== ENCOUNTER 2024-03-26 15:54 | Emergency (ER) | payer MEDICARE, OTHER ==
[~2024-03-26] VITALS: Ht 165.1 cm; Wt 90.1 kg
--- NOTE | ~2024-03-26 | EKG ---
[facility] [address] [place], [place] [address] Draft EK completed, results pending confirmation PATIENT NAME: AMADA SPAIN Electrocardiogram DATE OF : 45 PHYSICIAN: PRELIMINARY REPORT #: [id number] REPORT IS CONFIDENTIAL AND NOT TO BE RELEASED WITHOUT AUTHORIZATION
[~2024-03-26 15:54] MED LIST changes: +MIRALAX119 GM PO
[2024-03-26 16:02] LABS: BASOPHILS 0.5 % (0-2); EOSINOPHILS 0.9 % (0-6); HEMATOCRIT 33.8 % (35.0-50.0); HEMOGLOBIN 11.2 g/dL (12.0-18.0); LYMPHOCYTES 28.8 % (24-44); MCH 30.2 (27-36); MCV 91.5 fl (81-99); MONOCYTES 7.3 % (0-12); NEUTROPHILS 62.5 % (39-80); PLATELET COUNT 232 K/uL (140-440); RDW 13.8 (10.5-15.0)
[2024-03-26 16:12] LABS: INR 2.34 (0.80-1.30); PROTIME 24.7 Sec (11.2-14.2)
[2024-03-26 16:20] LABS: ALBUMIN 3.2 g/dL (3.4-5.0); ALBUMIN/GLOBULIN RATIO 0.91 (1.1-2.4); BILIRUBIN, TOTAL 0.4 ng/dL (0.2-1.0); BUN/CREATININE RATIO 24.24 (6.0-28.6); CALCIUM 8.7 mg/dL (8.5-10.1); CREATININE, SERUM 0.66 mg/dL (0.55-1.02); PROTEIN, TOTAL 6.7 g/dL (6.4-8.2)
[2024-03-26] MEDS ORDERED: ACETAMINOPHEN 500 MG TAB PO ONE (16:45)
[2024-03-26 16:50] VITALS: BP 130/78
== END 2024-03-26 16:55 | disposition home or self-care (01) ==
LOC: ED 15:54
PROVIDERS: Emergency Medicine
DX: R51.9 Headache, unspecified (principal); I10 Essential (primary) hypertension; I48.91 Unspecified atrial fibrillation; G47.30 Sleep apnea, unspecified; Z86.73 Personal history of transient ischemic attack (TIA), and cerebral infarction without residual deficits; Z79.01 Long term (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 of anticoagulants; Z79.899 Other long term (current) drug therapy; Z79.82 Long term (current) use of aspirin; Z88.1 Allergy status to other antibiotic agents; Z88.6 Allergy status to analgesic agent; Z88.8 Allergy status to other drugs, medicaments and biological substances
CPT/HCPCS: 36415; 70450; 70496; 70498; 71045; 80053; 84484; 85025; 85610; 93005; 93010; 99285-25; A9270; Q9967

== ENCOUNTER 2024-07-10 17:44 | Emergency (ER) | payer MEDICARE, OTHER ==
[~2024-07-10] VITALS: Ht 165.1 cm; Wt 88.9 kg
[~2024-07-10 17:44] MED LIST changes: +APPLE CIDER VI500 MG PO; +[UNRECOGNIZED DRUG - OTHER] TOP
[2024-07-10 18:04] LABS: BASOPHILS 2.5 % (0-2); EOSINOPHILS 0.7 % (0-6); HEMOGLOBIN 13.2 g/dL (12.0-18.0); LYMPHOCYTES 32.6 % (24-44); MCH 30.4 (27-36); MCHC 32.9 g/dl (30-36); MCV 92.4 fl (81-99); MONOCYTES 5.9 % (0-12); NEUTROPHILS 58.3 % (39-80); PLATELET COUNT 271 K/uL (140-440); RBC 4.33 M/ul (4.3-5.7); RDW 13.5 (10.5-15.0)
[2024-07-10 18:26] LABS: ALBUMIN 3.7 g/dL (3.4-5.0); ALBUMIN/GLOBULIN RATIO 0.97 (1.1-2.4); ANION GAP 16.1 (7-21); BILIRUBIN, TOTAL 0.4 ng/dL (0.2-1.0); BUN/CREATININE RATIO 22.58 (6.0-28.6); CALCIUM 9.6 mg/dL (8.5-10.1); CREATININE, SERUM 0.93 mg/dL (0.55-1.02); MAGNESIUM 1.8 mg/dL (1.8-2.4); POTASSIUM 4.1 mmol/L (3.5-5.1); PROTEIN, TOTAL 7.5 g/dL (6.4-8.2)
[2024-07-10 18:29] LABS: PARTIAL THROMBOPLASTIN TIME 34.7 Sec (22.9-41.3)
[2024-07-10 18:30] LABS: INR 2.42 (0.80-1.30); PROTIME 25.3 Sec (11.2-14.2)
[2024-07-10 19:44] LABS: BILIRUBIN, URINE NEGATIVE (negative); BLOOD/HGB, URINE LARGE (Negative); KETONE, URINE NEGATIVE (Negative); LEUK ESTERASE, URINE NEGATIVE (negative); NITRITE, URINE NEGATIVE (negative); PH, URINE 5.5 (5-7)
[2024-07-10 19:50] LABS: EPITHELIAL CELLS, URINE SQUAMOUS 1+ /lpf (0-1+); WHITE BLOOD CELLS, URINE 0-1 /HPF (0-5)
[2024-07-10 19:51] LABS: BACTERIA, URINE NONE SEEN /hpf (negative); CASTS, URINE NEGATIVE \\lpf; COLLECTION TYPE, URINE CLEAN CATCH; CRYSTALS, URINE NONE SEEN (0-1+); REFLEX CULTURE, URINE No (No)
[2024-07-10 20:37] VITALS: BP 133/72
--- NOTE | 2024-07-11 19:34 | EKG ---
[facility] [address] [facility] [place] [address] Signed Normal sinus rhythm with sinus arrhythmia Normal ECG When compared with ECG of 26-MAR-2024 16:33, No significant change was found Confirmed by Fabricio Cerda MD ([id number]) on 07/11/2024 7:34:37 PM Electronically Signed By: FABRICIO CERDA MD 07/11/241933 PATIENT NAME: AMADA SPAIN CHRISSY Electrocardiogram DATE OF : 45 PHYSICIAN: FABRICIO CERDA MD REPORT #: [id number] REPORT IS CONFIDENTIAL AND NOT TO BE RELEASED WITHOUT AUTHORIZATION
== END 2024-07-10 20:37 | disposition home or self-care (01) ==
LOC: ED 17:44
PROVIDERS: Emergency Medicine
DX: R51.9 Headache, unspecified (principal); R07.9 Chest pain, unspecified; R31.29 Other microscopic hematuria; G47.30 Sleep apnea, unspecified; E03.9 Hypothyroidism, unspecified; I48.91 Unspecified atrial fibrillation; I10 Essential (primary) hypertension; Z86.73 Personal history of transient ischemic attack (TIA), and cerebral infarction without residual deficits; Z88.5 Allergy status to narcotic agent; Z88.2 Allergy status to sulfonamides; Z88.1 Allergy status to other antibiotic agents; Z88.8 Allergy status to other drugs, medicaments and biological substances; Z88.6 Allergy status to analgesic agent; Z79.82 Long term (current) use of aspirin; Z79.890 Hormone replacement therapy; Z79.01 Long term (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 of anticoagulants; Z79.899 Other long term (current) drug therapy
CPT/HCPCS: 36415; 51701; 70450; 70496; 70498; 71045; 80053; 81001; 83735; 83880; 84484; 85025; 85610; 85730; 93005; 93010; 99285-25; Q9967

== ENCOUNTER 2024-08-29 15:06 | Emergency (ER) | payer MEDICARE, OTHER ==
[~2024-08-29] VITALS: Ht 165.1 cm; Wt 83.9 kg
[2024-08-29] MEDS ORDERED: DULOXETINE HCL30 MG PO (16:51)
[2024-08-29] MEDS ORDERED: HYDROCODONE BIT/ACETAMINOPHEN 5/325 MG 1 TAB HOME.PACK PO ONE (18:45)
[2024-08-29] MEDS ORDERED: HYDROCODON-ACE1 EA10 PO (18:47)
[2024-08-29 18:57] VITALS: BP 148/83
== END 2024-08-29 18:59 | disposition home or self-care (01) ==
LOC: ED 15:06
DX: M25.462 Effusion, left knee (principal); G47.30 Sleep apnea, unspecified; E03.9 Hypothyroidism, unspecified; I48.91 Unspecified atrial fibrillation; I10 Essential (primary) hypertension; Z96.653 Presence of artificial knee joint, bilateral; Z86.73 Personal history of transient ischemic attack (TIA), and cerebral infarction without residual deficits; Z88.5 Allergy status to narcotic agent; Z88.2 Allergy status to sulfonamides; Z88.1 Allergy status to other antibiotic agents; Z88.6 Allergy status to analgesic agent; Z88.8 Allergy status to other drugs, medicaments and biological substances; Z79.01 Long term (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 of anticoagulants; Z79.82 Long term (current) use of aspirin; Z79.83 Long term (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 of bisphosphonates; Z79.890 Hormone replacement therapy; Z79.899 Other long term (current) drug therapy
CPT/HCPCS: 73560; 99283; A9270

== ENCOUNTER 2024-09-14 15:34 | Emergency (ER) | payer MEDICARE, OTHER ==
[~2024-09-14] VITALS: Ht 165.1 cm; Wt 88.0 kg
[~2024-09-14 15:34] MED LIST changes: +DULOXETINE HCL30 MG PO
[2024-09-14 15:55] LABS: BASOPHILS 0.6 % (0-2); EOSINOPHILS 2.6 % (0-6); HEMATOCRIT 34.9 % (35.0-50.0); HEMOGLOBIN 11.6 g/dL (12.0-18.0); LYMPHOCYTES 38.3 % (24-44); MCH 30.3 (27-36); MCHC 33.3 g/dl (30-36); MCV 91.1 fl (81-99); MONOCYTES 10.2 % (0-12); NEUTROPHILS 48.3 % (39-80); PLATELET COUNT 249 K/uL (140-440); RBC 3.83 M/ul (4.3-5.7); RDW 13.7 (10.5-15.0)
[2024-09-14 15:58] LABS: INR 2.05 (0.80-1.30); PROTIME 23.1 Sec (11.2-14.2)
[2024-09-14] MEDS ORDERED: fentaNYL citrate 100 MCG/2 ML VIAL IV ONE (16:00)
[2024-09-14 16:03] LABS: ALBUMIN 3.4 g/dL (3.4-5.0); ALBUMIN/GLOBULIN RATIO 0.97 (1.1-2.4); BILIRUBIN, TOTAL 0.4 mg/dL (0.2-1.0); BUN/CREATININE RATIO 26.56 (6.0-28.6); CALCIUM 8.9 mg/dL (8.5-10.1); CREATININE, SERUM 0.64 mg/dL (0.55-1.02); PROTEIN, TOTAL 6.9 g/dL (6.4-8.2)
[2024-09-14] MEDS ORDERED: diphenhydrAMINE HCL 50 MG/ML VIAL IV ONE (17:45)
[2024-09-14] MEDS ORDERED: ACETAMINOPHEN 325 MG TAB PO ONE (17:45)
[2024-09-14] MEDS ORDERED: METOCLOPRAMIDE HCL 10 MG/2 ML SDV IV ONE (17:45)
[2024-09-14 18:28] LABS: BILIRUBIN, URINE NEGATIVE (negative); BLOOD/HGB, URINE MODERATE (Negative); KETONE, URINE NEGATIVE (Negative); LEUK ESTERASE, URINE NEGATIVE (negative); NITRITE, URINE NEGATIVE (negative); PH, URINE 6.5 (5-7)
[2024-09-14 18:34] LABS: BACTERIA, URINE NONE SEEN /hpf (negative); CASTS, URINE NONE SEEN \\lpf; COLLECTION TYPE, URINE CLEAN CATCH; CRYSTALS, URINE NONE SEEN (0-1+); EPITHELIAL CELLS, URINE SQUAMOUS 2+ /lpf (0-1+); REFLEX CULTURE, URINE No (No)
[2024-09-14 18:58] VITALS: BP 144/74
--- NOTE | 2024-09-14 22:28 | EKG ---
[facility] [address] [facility] [place] [address] Signed Sinus bradycardia Otherwise normal ECG When compared with ECG of 10-JUL-2024 17:50, No significant change was found Confirmed by Sherley Schwartz MD () on 09/14/2024 10:28:24 PM Electronically Signed By: SHERLEY SCHWARTZ MD 09/14/24 2228 PATIENT NAME: AMADA SPAIN CHRISSY Electrocardiogram DATE OF : 45 PHYSICIAN: SHERLEY SCHWARTZ MD REPORT #: [id number] REPORT IS CONFIDENTIAL AND NOT TO BE RELEASED WITHOUT AUTHORIZATION
== END 2024-09-14 18:58 | disposition home or self-care (01) ==
LOC: ED 15:34
PROVIDERS: Emergency Medicine
DX: R51.9 Headache, unspecified (principal); D64.9 Anemia, unspecified; G47.30 Sleep apnea, unspecified; E03.9 Hypothyroidism, unspecified; I48.91 Unspecified atrial fibrillation; I10 Essential (primary) hypertension; Z86.73 Personal history of transient ischemic attack (TIA), and cerebral infarction without residual deficits; Z88.5 Allergy status to narcotic agent; Z88.2 Allergy status to sulfonamides; Z88.1 Allergy status to other antibiotic agents; Z88.6 Allergy status to analgesic agent; Z88.8 Allergy status to other drugs, medicaments and biological substances; Z79.01 Long term (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 of anticoagulants; Z79.82 Long term (current) use of aspirin; Z79.890 Hormone replacement therapy; Z79.83 Long term (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 of bisphosphonates; Z79.899 Other long term (current) drug therapy; Z91.81 History of falling
CPT/HCPCS: 36415; 70496; 70498; 71250; 80053; 81001; 85025; 85610; 93005; 93010; 99284-25; Q9967

== ENCOUNTER 2025-03-01 06:27 | Day surgery (SDC) | payer MEDICARE, OTHER ==
[2024-11-23 13:22] VITALS: BP 116/63
[~2025-03-01] VITALS: Ht 165.1 cm; Wt 87.3 kg
[~2025-03-01 06:27] MED LIST changes: +CEFAZOLIN SODIUM 2 GM/20 ML SYR IV SCH; +IBLOOD GLUCOSE TEST STRIP 1 EA TEST VI PRN; +LACTATED RINGER'S 1,000 ML IV SCH; +LIDOCAINE HCL 1% 5 ML SDV INJ ONE
[2025-03-01] MEDS ORDERED: LIDOCAINE HCL 1% 30 ML SDV ONE (06:39)
[2025-03-01] MEDS ORDERED: LIDOCAINE HCL 1% 5 ML SDV INJ ONE (07:00)
[2025-03-01] MEDS ORDERED: CEFAZOLIN SODIUM 2 GM/20 ML SYR IV SCH (07:00)
[2025-03-01] MEDS ORDERED: IBLOOD GLUCOSE TEST STRIP 1 EA TEST VI PRN (07:00)
[2025-03-01 07:09] VITALS: BP 117/65
--- NOTE | 2025-03-01 07:27 | NUR ---
PT HAS HX STROKE WITH R SIDDED WEAKNESS AND PAIN 5/10 WHICH SHE SAYS IS MOST OF TIME. NUMBER TO CALL FOR RIDE HOME. HAS CALL LIGHT ON LEFT.
[2025-03-01] MEDS ORDERED: TRAMADOL HCL 50 MG TAB PO PRN (07:45)
[2025-03-01] MEDS ORDERED: KETOROLAC TROMETHAMINE 15 MG/ML VIAL IV PRN (07:45)
[2025-03-01] MEDS ORDERED: PHENAZOPYRIDINE HCL 100 MG TAB PO ONE (08:00)
--- NOTE | 2025-03-01 08:34 | NUR ---
DR REMY IN TO TALK WITH PT.
[2025-03-01] MEDS ORDERED: LIDOCAINE HCL 2% 5 ML SDV ONE (08:50)
[2025-03-01 10:54] VITALS: BP 125/52
--- NOTE | 2025-03-01 10:56 | NUR ---
RIDE WILL BE HERE 12 TO 1.
--- NOTE | 2025-03-01 10:57 | NUR ---
03/01/25 1057 Turk,Bette Diaz 1008: PATIENT ARRIVED TO DAY SURGERY WITH O2 MASK. BREATHING SPONTANEOUSLY. 1015: PATIENT AWAKENED BY TOUCH AND VOICE. BP INCREASED ONCE PATIENT AWAKE. PATIENT STILL DROWSY. FALLING BACK TO SLEEP QUICKLY. DENIES PAIN. 1038: PATIENT MORE ALERT AND AWAKE. DISCHARGE INSTRUCTIONS GIVEN TO PATIENT. DENIES URGE TO VOID. 1052: TRANSFERRED BACK TO TO WAIT FOR VOID AND RIDE. REPORT GIVEN TO RN.
--- NOTE | 2025-03-01 11:56 | NUR ---
LYDIA COMING FOR PT. TO [facility] VOIDS APPROX 100MLS PINK TINGED URINE. DR REMY WANTS HER TO RESTART ELIQUIS TOMORROW 03/02/25. DCD INSTRUCTIONS HAVE BEEN GIVEN AND SCRIPT NO QUESTIONS. IS DRESSED AND READY TO GO.
== END 2025-03-01 11:30 | disposition home or self-care (01) ==
LOC: DS 06:27
PROVIDERS: ATTEND Urology
PROC: 0TVD8ZZ Restriction of Urethra, Via Natural or Artificial Opening Endoscopic (ICD-10-PCS; principal; 2025-03-01 08:40)
DX: N39.46 Mixed incontinence (principal); N32.81 Overactive bladder; N36.42 Intrinsic sphincter deficiency (ISD); E03.9 Hypothyroidism, unspecified; I48.0 Paroxysmal atrial fibrillation; Z79.01 Long term (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 of anticoagulants; Z79.890 Hormone replacement therapy; Z79.899 Other long term (current) drug therapy; Z88.5 Allergy status to narcotic agent; Z88.6 Allergy status to analgesic agent; Z88.2 Allergy status to sulfonamides; Z90.49 Acquired absence of other specified parts of digestive tract
CPT/HCPCS: 00910; J0690; J2003; J2704; J7121; L8606

== ENCOUNTER 2025-03-30 11:07 | Emergency (ER) | payer MEDICARE, OTHER ==
[~2025-03-30] VITALS: Ht 165.1 cm; Wt 85.2 kg
[~2025-03-30 11:07] MED LIST changes: -CEFAZOLIN SODIUM 2 GM/20 ML SYR IV SCH; -IBLOOD GLUCOSE TEST STRIP 1 EA TEST VI PRN; -LACTATED RINGER'S 1,000 ML IV SCH; -LIDOCAINE HCL 1% 5 ML SDV INJ ONE
[2025-03-30 11:36] LABS: BASOPHILS 0.4 % (0.1-1.2); EOSINOPHILS 2.5 % (0.7-5.8); LYMPHOCYTES 29.9 % (19.3-51.7); MCH 28.9 PG (25.6-32.2); MCHC 31.4 g/dL (32.2-35.5); MCV 92.0 fL (79.4-94.8); MONOCYTES 8.0 % (4.7-12.5); NEUTROPHILS 58.7 % (34.0-71.1); RBC 4.26 M/uL (3.93-5.22)
[2025-03-30 11:42] LABS: INR 1.09 (0.80-1.30); PROTIME 13.4 Sec (11.2-14.2)
[2025-03-30 11:49] LABS: ALT (SGPT) 18.0 U/L (14-59); AST (SGOT) 23.0 U/L (15-37); GLOMERULAR FILTRATION RATE,EST 90.0 mL/min (>60); PROTEIN, TOTAL 7.7 g/dL (6.4-8.2); UREA NITROGEN 13.0 mg/dL (7-18)
[2025-03-30] MEDS ORDERED: ACETAMINOPHEN 500 MG TAB PO ONE (14:15)
[2025-03-30 14:22] VITALS: BP 153/74
--- NOTE | 2025-03-31 18:48 | EKG ---
[facility] [address] [place] [address] Signed Sinus rhythm with premature atrial complexes Otherwise normal ECG When compared with ECG of 14-SEP-2024 16:09, premature atrial complexes are now present Confirmed by Rocio Mai DO ([id number]) on 03/31/2025 6:48:26 PM Electronically Signed By: ROCIO MAI DO 03/31/25 1848 PATIENT NAME: SPAINAMADA Electrocardiogram DATE OF : 45 PHYSICIAN: ROCIO MAI DO REPORT #: [id number] REPORT IS CONFIDENTIAL AND NOT TO BE RELEASED WITHOUT AUTHORIZATION
== END 2025-03-30 14:22 | disposition home or self-care (01) ==
LOC: ED 11:07
PROVIDERS: Emergency Medicine
DX: R20.0 Anesthesia of skin (principal); R51.9 Headache, unspecified; M25.512 Pain in left shoulder; I48.91 Unspecified atrial fibrillation; E03.9 Hypothyroidism, unspecified; G47.30 Sleep apnea, unspecified; I10 Essential (primary) hypertension; Z86.73 Personal history of transient ischemic attack (TIA), and cerebral infarction without residual deficits; Z88.5 Allergy status to narcotic agent; Z88.2 Allergy status to sulfonamides; Z88.1 Allergy status to other antibiotic agents; Z88.8 Allergy status to other drugs, medicaments and biological substances; Z88.6 Allergy status to analgesic agent; Z79.01 Long term (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 of anticoagulants; Z79.83 Long term (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 of bisphosphonates; Z79.890 Hormone replacement therapy; Z79.899 Other long term (current) drug therapy
CPT/HCPCS: 36415; 70450; 70496; 70498; 70551; 71045; 80053; 84484; 85025; 85610; 85730; 93005; 93010; 99284-25; A9270; Q9967

== ENCOUNTER 2025-07-05 13:07 | Emergency (ER) | payer MEDICARE, OTHER ==
[~2025-07-05] VITALS: Ht 165.1 cm; Wt 94.0 kg
--- NOTE | ~2025-07-05 | EKG ---
[facility] [address] [facility] [facility] [place], [place] [address] Draft EK completed, results pending confirmation PATIENT NAME: AMADA SPAIN Electrocardiogram DATE OF : 45 PHYSICIAN: PRELIMINARY REPORT #: [id number] REPORT IS CONFIDENTIAL AND NOT TO BE RELEASED WITHOUT AUTHORIZATION
--- OUTSIDE RECORDS SUMMARY | ~2025-07-05 | XMS | Continuity of Care Document ---
Demographics + + + | Address | [address] | | | [place] [address] | + + + | Preferred Language | Unknown | + + + | Marital Status | | + + + | Adventist Affiliation | Unknown | + + + | Race | White | + + + | Ethnic Group | Not or | + + + Author + + + | Author | [facility] | + + + | Organization | [facility] | + + + | Address | [address] | | | [place] [address] | + + + | Phone | | + + + Care Team Providers + + + + | Care Ditching Machine Engineer Name | Role | Phone | + + + + Unavailable | Unavailable | + + + + Allergies No information. Encounters No information. Functional Status No information. Immunizations No information. Medications + + + + | date | description | facility | + + + + | (no date) | FLUOXETINE HCL | [facility] | | | | [facility] | + + + + | (no date) | APIXABAN | [facility] | | | | [facility] | + + + + | (no date) | ACETAMINOPHEN | [facility] | | | | [facility] | + + + + | (no date) | OMEPRAZOLE | [facility] | | | | [facility] | + + + + | (no date) | ATORVASTATIN CALCIUM | [facility] | | | | [facility] | + + + + | (no date) | DULOXETINE HCL | [facility] | | | | [facility] | + + + + | (no date) | CHOLECALCIFEROL (VITAMIN | [facility] | | | D3) | [facility] | + + + + | (no date) | CYCLOBENZAPRINE HCL | [facility] | | | | [facility] | + + + + | (no date) | CHOLECALCIFEROL (VITAMIN | [facility] | | | D3) | [facility] | + + + + | (no date) | METOPROLOL SUCCINATE | [facility] | | | | [facility] | + + + + | (no date) | LEVOTHYROXINE SODIUM | [facility] | | | | [facility] | + + + + | (no date) | ALENDRONATE SODIUM | [facility] | | | | [facility] | + + + + | (no date) | LEVOTHYROXINE SODIUM | [facility] | | | | [facility] | + + + + | (no date) | LOSARTAN POTASSIUM | [facility] | | | | [facility] | + + + + Problems No information. Procedures No information. Results/Labs No information. Social History +--------+ + + | date | description | facility | +--------+ + + Vital Signs No information."
[2025-07-05] MEDS ORDERED: NITROGLYCERIN 0.4 MG SUBL SL PRN (13:15)
[2025-07-05] MEDS ORDERED: ASPIRIN 81 MG CHEW PO ONE (13:15)
[2025-07-05 13:28] LABS: BASOPHILS 0.5 % (0.1-1.2); EOSINOPHILS 1.3 % (0.7-5.8); LYMPHOCYTES 23.5 % (19.3-51.7); MCH 29.5 PG (25.6-32.2); MCHC 31.5 g/dL (32.2-35.5); MCV 93.8 fL (79.4-94.8); MONOCYTES 9.8 % (4.7-12.5); NEUTROPHILS 64.5 % (34.0-71.1); RBC 3.69 M/uL (3.93-5.22)
[2025-07-05] MEDS ORDERED: WARFARIN SODIUM5 MG PO (13:38)
[2025-07-05 14:03] LABS: ALT (SGPT) 23.0 U/L (14-59); AST (SGOT) 21.0 U/L (15-37); GLOMERULAR FILTRATION RATE,EST 89.0 mL/min (>60); PROTEIN, TOTAL 7.4 g/dL (6.4-8.2); UREA NITROGEN 20.0 mg/dL (7-18)
[2025-07-05] MEDS ORDERED: LIDOCAINE & ANTACID 35 ML BTL PO ONE (14:30)
[2025-07-05 15:15] VITALS: BP 148/75
== END 2025-07-05 15:15 | disposition home or self-care (01) ==
LOC: ED 13:07
PROVIDERS: Emergency Medicine
DX: R07.9 Chest pain, unspecified (principal); E03.9 Hypothyroidism, unspecified; G47.30 Sleep apnea, unspecified; I10 Essential (primary) hypertension; Z79.899 Other long term (current) drug therapy; Z79.01 Long term (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 of anticoagulants; Z88.1 Allergy status to other antibiotic agents; Z88.6 Allergy status to analgesic agent; Z88.5 Allergy status to narcotic agent; Z88.8 Allergy status to other drugs, medicaments and biological substances
CPT/HCPCS: 36415; 71045; 80053; 83735; 83880; 84484; 85025; 93005; 93010; 99285-25; A9270